=== PATIENT | female | born 1940 | race Caucasian/White ===

== ENCOUNTER 2016-10-26 22:27 | Emergency (ER) | payer MEDICARE, BC ==
--- NOTE | 2016-10-26 22:49 | EDM.PDOC ---
ED HPI GENERAL MEDICAL PROBLEM - General Chief Complaint: Neuro Symptoms/Deficits Stated Complaint: STROKE ALERT Time Seen by Provider: 10/26/16 22:28 Source of Information: Reports: Patient, Family (Son), Old Records, RN Notes Reviewed History Limitations: Reports: Altered Mental Status - History of Present Illness INITIAL COMMENTS - FREE TEXT/NARRATIVE: The patient is brought to the ED by her son. He is concerned that the patient's speech is slurred, and that she is weak. He states that she was unable to get up from the couch on her own, and when she walked, she needed to lean on him for support. The patient's son lives out of town, and only arrived this afternoon. The patient lives alone, but has relatives visiting. The patient's son telephoned the relatives, who informed him that the patient's symptoms likely started yesterday, 10/25/2016. The patient states that she was seen in this ER earlier this afternoon, and saw her PCP, Dr. Tapan talavera, however, our medical records indicates that the patient was last seen in this ED on 03/14/16. The patient's son states that the patient did in fact see Dr. Phelan midafternoon today, and that he diagnosed her with polymyalgia rheumatica, and prescribed her prednisone. The patient's son states that she has taken one dose so far. - Related Data Allergies Allergy/AdvReac Type Severity Reaction Status Date / Time No Known Allergies Allergy Verified 01/31/15 07:44 Home Meds: Home Meds ALPRAZolam [Xanax] 0.5 mg PO ASDIRECTED PRN 07/03/14 [History] Amitriptyline [Elavil] 50 mg PO BEDTIME 07/03/14 [History] Calcium Carbonate/Vitamin D3 [Calcium 600 + Vit D 400] 1 tab PO DAILY 07/03/14 [ History] Fish Oil/[place]-3 Fatty Acids [Fish Oil] 1 cap PO DAILY 07/03/14 [History] Levothyroxine [Synthroid] 88 mcg PO DAILY 07/03/14 [History] Pravastatin Sodium [Pravastatin (Pravachol)] 40 mg PO DAILY 07/03/14 [History] metFORMIN [Glucophage] 500 mg PO BID 07/03/14 [History] Aspirin 81 mg PO DAILY 01/31/15 [History] Labetalol [Normodyne] 200 mg PO BID 01/31/15 [History] cycloSPORINE [Restasis] 1 drop EYEBOTH BID 01/31/15 [History] Losartan Potassium 25 mg PO DAILY 03/14/16 [History] prednisoLONE Acetate [Pred Forte 1% Ophth Susp] 1 drop EYEBOTH DAILY 03/14/16 [ History] Cranberry 2 tab PO DAILY 10/27/16 [History] Methylcellulose [Fiber] 1 tab PO DAILY 10/27/16 [History] Multivitamin [Multivitamins] 1 tab PO DAILY 10/27/16 [History] Omeprazole 20 mg PO DAILY 10/27/16 [History] Propylene Glycol/Peg 400 [Systane 0.3-0.4% Eye Drops] 1 drop EYEBOTH BID [History] Sertraline [Zoloft] 1 tab PO DAILY 10/27/16 [History] Past Medical History HEENT History: Reports: Impaired Vision Cardiovascular History: Reports: High Cholesterol, Hypertension [employer] History: Reports: Musculoskeletal History: Reports: Arthritis, Fibromyalgia Endocrine/Metabolic History: Reports: Diabetes, Type II, Hypothyroidism - Past Surgical History HEENT Surgical History: Reports: Cataract Surgery Social & Family History - Family History Cardiac: Reports: [place] - Tobacco Use Smoking Status *Q: Never Smoker Second Hand Smoke Exposure: No - Caffeine Use Caffeine Use: Reports: Coffee - Alcohol Use Alcohol Use History: Yes Days Per Week of Alcohol Use: 0 Alcohol Use Frequency: Rarely - Recreational Drug Use Recreational Drug Use: No - Living Situation & Occupation Living situation: Reports: , Alone Occupation: Retired ED ROS GENERAL - Review of Systems Review Of Systems: See Below Constitutional: Reports: No Symptoms HEENT: Reports: No Symptoms Respiratory: Reports: No Symptoms Cardiovascular: Reports: No Symptoms Endocrine: Reports: No Symptoms GI/Abdominal: Reports: No Symptoms : Reports: No Symptoms Musculoskeletal: Reports: No Symptoms Skin: Reports: No Symptoms Neurological: Reports: No Symptoms Psychiatric: Reports: No Symptoms Hematologic/Lymphatic: Reports: No Symptoms Immunologic: Reports: No Symptoms ED EXAM, NEURO - Physical Exam Exam: See Below Exam Limited By: No Limitations General Appearance: Alert, WD/WN, No Apparent Distress Eye Exam: Bilateral Eye: Normal Inspection Ears: Normal External Exam, Hearing Grossly Normal Nose: Normal Inspection, No Blood Throat/Mouth: Normal Inspection, Normal Lips, Normal Teeth, Normal Gums, Normal Voice, No Airway Compromise, Other (Dry oral mucosa) Head Exam: Atraumatic, Normocephalic Neck: Normal Inspection, Supple, Non-Tender, Full Range of Motion Respiratory/Chest: No Respiratory Distress, Lungs Clear, Normal Breath Sounds, No Accessory Muscle Use Cardiovascular: Normal Peripheral Pulses, Regular Rate, Rhythm, No Gallop, No JVD, No Murmur, No Rub GI/Abdominal: Normal Bowel Sounds, Soft, Non-Tender, No Organomegaly, No Distention, No Abnormal Bruit, No Mass (Female) Exam: Deferred Rectal (Female) Exam: Deferred Neurological: Alert, Normal Dorsiflexion, CN II-XII Intact, Normal Plantar Flexion, No Motor/Sensory Deficits, Other (Confused) Back Exam: Normal Inspection, Full Range of Motion, NT Extremities: Normal Inspection, Normal Range of Motion, No Pedal Edema, Normal Capillary Refill Psychiatric: Normal Affect Skin Exam: Warm, Dry, Intact, Normal Color, No Rash EKG INTERPRETATION EKG Date: 10/26/16 Time: 22:31 Rhythm: NSR Rate (Beats/Min): 78 [place]: Normal P-Wave: Present QRS: Normal ST-T: Normal QT: Normal Comparison: No Change (03/14/2016) Course - Vital Signs Last Recorded V/S: Last Vital Signs Temp 36.5 C 10/26/16 22:32 Pulse 79 10/26/16 22:32 Resp 30 H 10/26/16 22:32 BP 100/47 L 10/26/16 22:32 Pulse Ox 86 L 10/26/16 22:32 Orthostatic Blood Pressure [ 106/52 Sitting] Orthostatic Blood Pressure [ 102/45 Supine] - Orders/Labs/Meds Orders: Active Orders 24 hr Category Date Time Status Blood Glucose Check, Bedside [RC] ONETIME Care 10/26/16 22:47 Active Blood Glucose Check, Bedside [RC] ONETIME Care 10/26/16 22:51 Active Orthostatic Vital Signs [RC] STAT Care 10/26/16 22:45 Active Chest 1V Frontal [CR] Stat Exams 10/26/16 22:45 Taken Head wo Cont [CT] Stat Exams 10/26/16 22:45 Taken CULTURE BLOOD [BC] Stat Lab 10/26/16 23:15 Received CULTURE BLOOD [BC] Stat Lab 10/26/16 23:25 Received Sodium Chloride 0.9% [Normal Saline] 1,000 ml Med 10/26/16 23:45 Active IV ASDIRECTED Blood Culture x2 Reflex Set [OM.PC] Stat Oth 10/26/16 22:47 Ordered Medication Orders Sodium Chloride (Normal Saline) 1,000 mls @ 100 mls/hr IV ASDIRECTED MOISES Last Admin: 10/26/16 23:55 Dose: 100 mls/hr Labs: Laboratory Tests 10/26/16 10/26/16 10/26/16 Range/Units 22:30 22:30 22:30 WBC 24.94 H (3.98-10.04) K/mm3 RBC 3.39 L (3.98-5.22) M/mm3 Hgb 9.1 L (11.2-15.7) gm/L Hct 28.3 L (34.1-44.9) % MCV 83.5 (79.4-94.8) fl MCH 26.8 (25.6-32.2) pg MCHC 32.2 (32.2-35.5) g/dl RDW Std Deviation 40.9 (36.4-46.3) fL Plt Count 452 H (182-369) K/mm3 MPV 8.9 L (9.4-12.3) fl Neutrophils % (Manual) 87 H (40-60) % Band Neutrophils % 3 (0-10) % Lymphocytes % (Manual) 5 L (20-40) % Atypical Lymphs % 0 % Monocytes % (Manual) 5 (2-10) % Eosinophils % (Manual) 0 L (0.7-5.8) % Basophils % (Manual) 0 L (0.1-1.2) Toxic Granulation 1+ slight Platelet Estimate Increased Plt Morphology Comment Normal Polychromasia 2+ moderate Spherocytes Few RBC Morph Comment Not Reportable PT (8.0-13.0) SECONDS INR APTT (22-36) SECONDS D-Dimer, Quantitative 2.48 H (0.19-0.59) mg/L Puncture Site ABG pH (7.35-7.45) ABG pCO2 (35.0-45.0) mmHg ABG pO2 (80.0-100.0) mmHg ABG HCO3 (22.0-26.0) meq/L [place] Test A-a Gradient mmHg FiO2 (21.00-100.00) % Sodium 131 L (136-145) mEq/L Potassium 4.1 (3.5-5.1) mEq/L Chloride 96 L (98-107) mEq/L Carbon Dioxide 23 (21-32) mEq/L Anion Gap 16.1 H (5-15) BUN 25 H (7-18) mg/dL Creatinine 1.8 H (0.55-1.02) mg/dL Est Cr Clr Drug Dosing 24.11 mL/min Estimated GFR (MDRD) 27 (>60) mL/min BUN/Creatinine Ratio 13.9 L (14-18) Glucose 163 H (83-115) mg/dL Lactic Acid (0.4-2.0) mmol/L Calcium 8.6 (8.5-10.1) mg/dL Total Bilirubin 0.8 (0.2-1.0) mg/dL AST 27 (15-37) U/L ALT 32 (14-59) U/L Alkaline Phosphatase 121 H (46-116) U/L Creatine Kinase (26-192) U/L Troponin I < 0.017 (0.00-0.056) ng/mL B-Natriuretic Peptide (0-100) pg/mL Total Protein 7.3 (6.4-8.2) g/dl Albumin 2.8 L (3.4-5.0) g/dl Globulin 4.5 gm/dL Albumin/Globulin Ratio 0.6 L (1-2) TSH 3rd Generation 2.643 (0.358-3.74) uIU/mL Urine Color (Yellow) Urine Appearance (Clear) Urine pH (5.0-8.0) Ur Specific [place] (1.005-1.030) Urine Protein (Negative) Urine Glucose (UA) (Negative) Urine Ketones (Negative) Urine Occult Blood (Negative) Urine Nitrite (Negative) Urine Bilirubin (Negative) Urine Urobilinogen (0.2-1.0) Ur Leukocyte Esterase (Negative) Urine RBC (0-5) /hpf Urine WBC (0-5) /hpf Ur Epithelial Cells (0-5) /hpf Urine Bacteria (FEW) /hpf Hyaline Casts (0-5) /lpf Urine Mucus (FEW) /hpf 10/26/16 10/26/16 10/26/16 Range/Units 22:30 22:30 22:30 WBC (3.98-10.04) K/mm3 RBC (3.98-5.22) M/mm3 Hgb (11.2-15.7) gm/L Hct (34.1-44.9) % MCV (79.4-94.8) fl MCH (25.6-32.2) pg MCHC (32.2-35.5) g/dl RDW Std Deviation (36.4-46.3) fL Plt Count (182-369) K/mm3 MPV (9.4-12.3) fl Neutrophils % (Manual) (40-60) % Band Neutrophils % (0-10) % Lymphocytes % (Manual) (20-40) % Atypical Lymphs % % Monocytes % (Manual) (2-10) % Eosinophils % (Manual) (0.7-5.8) % Basophils % (Manual) (0.1-1.2) Toxic Granulation Platelet Estimate Plt Morphology Comment Polychromasia Spherocytes RBC Morph Comment PT 11.6 (8.0-13.0) SECONDS INR 1.06 APTT 35 (22-36) SECONDS D-Dimer, Quantitative (0.19-0.59) mg/L Puncture Site ABG pH (7.35-7.45) ABG pCO2 (35.0-45.0) mmHg ABG pO2 (80.0-100.0) mmHg ABG HCO3 (22.0-26.0) meq/L [place] Test A-a Gradient mmHg FiO2 (21.00-100.00) % Sodium (136-145) mEq/L Potassium (3.5-5.1) mEq/L Chloride (98-107) mEq/L Carbon Dioxide (21-32) mEq/L Anion Gap (5-15) BUN (7-18) mg/dL Creatinine (0.55-1.02) mg/dL Est Cr Clr Drug Dosing mL/min Estimated GFR (MDRD) (>60) mL/min BUN/Creatinine Ratio (14-18) Glucose (83-115) mg/dL Lactic Acid (0.4-2.0) mmol/L Calcium (8.5-10.1) mg/dL Total Bilirubin (0.2-1.0) mg/dL AST (15-37) U/L ALT (14-59) U/L Alkaline Phosphatase (46-116) U/L Creatine Kinase 341 H (26-192) U/L Troponin I (0.00-0.056) ng/mL B-Natriuretic Peptide 602 H (0-100) pg/mL Total Protein (6.4-8.2) g/dl Albumin (3.4-5.0) g/dl Globulin gm/dL Albumin/Globulin Ratio (1-2) TSH 3rd Generation (0.358-3.74) uIU/mL Urine Color (Yellow) Urine Appearance (Clear) Urine pH (5.0-8.0) Ur Specific [place] (1.005-1.030) Urine Protein (Negative) Urine Glucose (UA) (Negative) Urine Ketones (Negative) Urine Occult Blood (Negative) Urine Nitrite (Negative) Urine Bilirubin (Negative) Urine Urobilinogen (0.2-1.0) Ur Leukocyte Esterase (Negative) Urine RBC (0-5) /hpf Urine WBC (0-5) /hpf Ur Epithelial Cells (0-5) /hpf Urine Bacteria (FEW) /hpf Hyaline Casts (0-5) /lpf Urine Mucus (FEW) /hpf 10/26/16 10/26/16 10/26/16 Range/Units 23:00 23:15 23:45 WBC (3.98-10.04) K/mm3 RBC (3.98-5.22) M/mm3 Hgb (11.2-15.7) gm/L Hct (34.1-44.9) % MCV (79.4-94.8) fl MCH (25.6-32.2) pg MCHC (32.2-35.5) g/dl RDW Std Deviation (36.4-46.3) fL Plt Count (182-369) K/mm3 MPV (9.4-12.3) fl Neutrophils % (Manual) (40-60) % Band Neutrophils % (0-10) % Lymphocytes % (Manual) (20-40) % Atypical Lymphs % % Monocytes % (Manual) (2-10) % Eosinophils % (Manual) (0.7-5.8) % Basophils % (Manual) (0.1-1.2) Toxic Granulation Platelet Estimate Plt Morphology Comment Polychromasia Spherocytes RBC Morph Comment PT (8.0-13.0) SECONDS INR APTT (22-36) SECONDS D-Dimer, Quantitative (0.19-0.59) mg/L Puncture Site Lt radial ABG pH 7.48 H (7.35-7.45) ABG pCO2 31.1 L (35.0-45.0) mmHg ABG pO2 49.0 L (80.0-100.0) mmHg ABG HCO3 22.8 (22.0-26.0) meq/L [place] Test Positive A-a Gradient 47 mmHg FiO2 21.00 (21.00-100.00) % Sodium (136-145) mEq/L Potassium (3.5-5.1) mEq/L Chloride (98-107) mEq/L Carbon Dioxide (21-32) mEq/L Anion Gap (5-15) BUN (7-18) mg/dL Creatinine (0.55-1.02) mg/dL Est Cr Clr Drug Dosing mL/min Estimated GFR (MDRD) (>60) mL/min BUN/Creatinine Ratio (14-18) Glucose (83-115) mg/dL Lactic Acid 1.2 (0.4-2.0) mmol/L Calcium (8.5-10.1) mg/dL Total Bilirubin (0.2-1.0) mg/dL AST (15-37) U/L ALT (14-59) U/L Alkaline Phosphatase (46-116) U/L Creatine Kinase (26-192) U/L Troponin I (0.00-0.056) ng/mL B-Natriuretic Peptide (0-100) pg/mL Total Protein (6.4-8.2) g/dl Albumin (3.4-5.0) g/dl Globulin gm/dL Albumin/Globulin Ratio (1-2) TSH 3rd Generation (0.358-3.74) uIU/mL Urine Color Yellow (Yellow) Urine Appearance Clear (Clear) Urine pH 5.5 (5.0-8.0) Ur Specific [place] 1.020 (1.005-1.030) Urine Protein Negative (Negative) Urine Glucose (UA) Negative (Negative) Urine Ketones Negative (Negative) Urine Occult Blood Negative (Negative) Urine Nitrite Negative (Negative) Urine Bilirubin 1+ H (Negative) Urine Urobilinogen 0.2 (0.2-1.0) Ur Leukocyte Esterase Negative (Negative) Urine RBC 0-5 (0-5) /hpf Urine WBC 0-5 (0-5) /hpf Ur Epithelial Cells 0-5 (0-5) /hpf Urine Bacteria Moderate H (FEW) /hpf Hyaline Casts 5-10 H (0-5) /lpf Urine Mucus Few (FEW) /hpf Meds: Medications Generic Name Dose Route Start Last Admin Trade Name Freq PRN Reason Stop Dose Admin Sodium Chloride 1,000 mls @ 100 mls/hr 10/26/16 23:45 10/26/16 23:55 Normal Saline IV 100 mls/hr ASDIRECTED MOISES Administration Discontinued Medications Generic Name Dose Route Start Last Admin Trade Name Freq PRN Reason Stop Dose Admin Enoxaparin Sodium 70 mg 10/26/16 23:45 10/26/16 23:56 Lovenox SUBCUT 10/26/16 23:46 70 mg ONETIME STA Administration - Re-Assessments/Exams Free Text/Narrative Re-Assessment/Exam: 10/26/16 23:11 CT of the head without contrast is read by [facility] as "Small low- attenuation area in the inferior left gopi (image 8), may represent acute/ subacute infarct in a proper clinical setting, further evaluation with MRI examination is recommended." As the patient's last known normal appears to be yesterday, thrombolytics are contraindicated. 10/26/16 23:14 The patient's ABG represents an [id number] respiratory alkalosis. The patient's D-dimer is significantly elevated at 2.48. No prior D-dimer for comparison. Her coags are normal. Her chemistry panel has not yet returned. 10/26/16 23:49 The patient's WBC count is elevated at 24.94 with 3% bandemia. This may be the result of the prednisone that the patient was prescribed earlier today. The patient's BUN/Cr are significantly elevated at 25/1.8, new from 03/14/2016, at which time they were normal. As a CT angiogram of the chest would be relatively contraindicated, I have ordered Lovenox 70 mg SQ. The patient's BNP is modestly elevated at 602. No prior BNP for comparison. Both the patient's elevated D-dimer and elevated BNP may be the result of the patient's renal insufficiency. Portable chest radiograph reviewed. Cardiac silhouette is at the upper limits of normal, possibly enlarged. There is moderate pulmonary vascular congestion, not seen on prior portable chest radiograph dated 03/14/2016. Small left-sided pleural effusion cannot be excluded. No focal infiltrate. No pneumothorax. Scoliosis noted. Formal read per the Radiologist pending. 10/27/16 00:37 Orthostatic blood pressures were only checked supine and sitting, not standing, however, she remained hemodynamically stable. 10/27/16 01:[address] Chang, Neurologist at [facility] at 01:33. He does not see an indication to transfer the patient. He agrees that the patient should have a MRI of her brain, however, he does not feel that the patient's clinical findings are consistent with a brainstem infarct, and agrees that CT scans are a poor modality to identify pontine infarcts. Additionally, he notes that the patient requires medical workup of her renal insufficiency and other lab abnormalities, which, as a Neurologist, he would have nothing to do with. He recommends we transfer to [place]. 10/27/16 01:46 The patient and her son would prefer that we transfer the patient to [facility]. 10/27/16 02:[address] Freeman, Neurologist at [facility] at 01:58. He recommends the patient be admitted to the Hospitalist for workup. Case then discussed with Dr. Walter, Hospitalist at [facility] at 02: 02. He accepts the patient for transfer. He would like us to add a CPK to the patient's previously drawn blood. 10/27/16 03:07 The patient CPK is modestly elevated at 341, with an upper limit of normal of 192. Departure - Departure Time of Disposition: 02:22 Disposition: DC/Tfer to Acute Hospital 02 Condition: Fair Clinical Impression: Abnormal CT of brain, Confusion, Acute renal insufficiency, Elevated WBC count , Elevated d-dimer, Elevated brain natriuretic peptide (BNP) level - Discharge Information - My Orders Last 24 Hours: My Active Orders 10/26/16 22:45 Orthostatic Vital Signs [RC] STAT Chest 1V Frontal [CR] Stat Head wo Cont [CT] Stat 10/26/16 22:47 Blood Glucose Check, Bedside [RC] ONETIME Blood Culture x2 Reflex Set [OM.PC] Stat 10/26/16 22:51 Blood Glucose Check, Bedside [RC] ONETIME 10/26/16 23:15 CULTURE BLOOD [BC] Stat 10/26/16 23:25 CULTURE BLOOD [BC] Stat 10/26/16 23:45 Sodium Chloride 0.9% [Normal Saline] 1,000 ml IV ASDIRECTED - Assessment/Plan Last 24 Hours: My Active Orders 10/26/16 22:45 Orthostatic Vital Signs [RC] STAT Chest 1V Frontal [CR] Stat Head wo Cont [CT] Stat 10/26/16 22:47 Blood Glucose Check, Bedside [RC] ONETIME Blood Culture x2 Reflex Set [OM.PC] Stat 10/26/16 22:51 Blood Glucose Check, Bedside [RC] ONETIME 10/26/16 23:15 CULTURE BLOOD [BC] Stat 10/26/16 23:25 CULTURE BLOOD [BC] Stat 10/26/16 23:45 Sodium Chloride 0.9% [Normal Saline] 1,000 ml IV ASDIRECTED
[2016-10-26] MEDS ORDERED: Enoxaparin 80 MG/0.8 ML Syringe SUBCUT STA (23:45)
[2016-10-26] MEDS ORDERED: Sodium Chloride 0.9% 1,000 ML IV SCH (23:45)
[2016-10-27 03:13] VITALS: BP 104/52
--- NOTE | 2016-10-27 10:26 | CR ---
Chest: Portable view of the chest was obtained. Comparison: Previous chest x-ray of 03/14/16. Heart size and mediastinum are normal. Central lung markings are slightly increased believed to be accentuated by portable technique. Lungs otherwise are clear. Bony structures are grossly intact. Impression: 1. Nothing acute is appreciated on portable chest x-ray. Diagnostic code #2
--- NOTE | 2016-10-27 10:26 | CT ---
Head CT Technique: Multiple axial sections through the brain were obtained. Intravenous contrast was not utilized. Comparison: Previous head CT and MRI brain dated 05/24/10. Previous MRI brain of 01/26/15 is also available. Findings: Ventricles along with basal cisterns and sulci over the convexities are within normal limits for the patient's age. Vague low density finding is seen within the gopi. Uncertain if this represents acute or old infarct versus beam hardening artifact from the skull base. Minimal diminished density is noted within the periventricular white matter compatible with small vessel ischemic demyelination change. No evidence of intracranial hemorrhage. Incidental basal ganglia calcification is seen. Atherosclerotic change is seen within the carotid siphon. No acute calvarial abnormality is seen. Visualized paranasal sinuses are clear. Minimal soft tissue density is seen within the right mastoid sinus which is likely incidental. Impression: 1. Questionable finding within the gopi as described above. 2. Other findings which are felt to be incidental as described above. 3. No intracranial hemorrhage is seen. Diagnostic code #3 I agree with preliminary report issued by [facility] ([facility] report finalized on 10/27/16, 12:08 AM Central Time
== END 2016-10-27 03:05 ==
LOC: JD.ED 22:27
DX: R41.0 Disorientation, unspecified (principal); R93.0 Abnormal findings on diagnostic imaging of skull and head, not elsewhere classified; N28.9 Disorder of kidney and ureter, unspecified; D72.829 Elevated white blood cell count, unspecified; R79.1 Abnormal coagulation profile; R79.89 Other specified abnormal findings of blood chemistry; I10 Essential (primary) hypertension; E78.00 Pure hypercholesterolemia, unspecified; M19.90 Unspecified osteoarthritis, unspecified site; E11.9 Type 2 diabetes mellitus without complications; E03.9 Hypothyroidism, unspecified; Z98.49 Cataract extraction status, unspecified eye; Z79.82 Long term (current) use of aspirin; Z79.899 Other long term (current) drug therapy; Z79.84 Long term (current) use of oral hypoglycemic drugs
CPT/HCPCS: 36415; 36600; 70450; 71010; 80053; 81001; 82550; 82803; 82962; 83605; 83880; 84443; 84484; 85025; 85379; 85610; 85730; 87040; 87077; 87186; 93005; 96360; 96361; 96372; 99285; J1650; J7040; P9612

== ENCOUNTER 2016-11-15 19:48 | Emergency (ER) | payer MEDICARE, BC ==
--- NOTE | 2016-11-15 20:55 | EDM.PDOC ---
ED HPI GENERAL MEDICAL PROBLEM - General Chief Complaint: Fever Stated Complaint: FEVER Time Seen by Provider: 11/15/16 20:02 Source of Information: Reports: Patient, Family, Old Records, RN Notes Reviewed History Limitations: Reports: No Limitations - History of Present Illness INITIAL COMMENTS - FREE TEXT/NARRATIVE: The patient was seen by me in this ED 10/26/2016 for slurred speech and generalized weakness. At that time, she was mildly hypotensive with a BP of 100/ 47, however, she was not tachycardic or orthostatic. She was afebrile. Her SpO2 was depressed at 86%. A CT scan of brain without contrast was read as a small low-attenuation area in the inferior left gopi which may have represented an acute/subacute infarct. The patient's WBC count was elevated at 24.94 with 3% bandemia, however, the patient had been started on prednisone earlier that day. The remainder of her CBC was normal. Her CMP was remarkable for hyponatremia of 131, and her BUN/Cr were elevated at 25/1.8. Her bicarbonate was normal, her lactic acid was normal at 1.2, and an ABG demonstrated an acute on chronic respiratory alkalosis. Her D-dimer was elevated at 2.48. Her troponin was undetectable, although her CPK was slightly elevated at 341. Her coags were normal. Her BNP was modestly elevated at 602, felt due to her acute renal failure, as her chest radiograph did not show evidence of CHF. Her urinalysis was unremarkable. She was transferred to [facility] for further evaluation for a stroke. The patient and her family tell me that the patient did not wind up having a stroke, rather, blood cultures grew staph aureus. They state that she underwent an echocardiogram which was negative for valvular vegetations, however, there was no mention of colonoscopy - her last colonoscopy was about 10 years ago. The patient now presents with a fever since this afternoon. Because the cause of the patient's bacteremia was not found, she was instructed to go to the ER if she developed a fever. She denies recent cough or shortness of breath, abdominal pain, sore throat, or chest pain. She states that she had some burning on urination earlier today, but that it has resolved. She also complains of bilateral leg pain which has been going on for months, but has been worse over the past approximately 3 weeks, thought due to her polymyalgia rheumatica. Her pain is no worse this afternoon than it has been over the past few weeks. She is currently on prednisone 15 mg daily. Treatments ENTRY LEVEL ADMINISTRATIVE ASSISTANT: Reports: Other (see below) Other Treatments ENTRY LEVEL ADMINISTRATIVE ASSISTANT: ibuprofen Leg Pain Score (Numeric/FACES): 10 - Related Data Allergies Allergy/AdvReac Type Severity Reaction Status Date / Time No Known Allergies Allergy Verified 11/15/16 20:01 Home Meds: Home Meds ALPRAZolam [Xanax] 0.5 mg PO ASDIRECTED PRN 07/03/14 [History] Amitriptyline [Elavil] 50 mg PO BEDTIME 07/03/14 [History] Calcium Carbonate/Vitamin D3 [Calcium 600 + Vit D 400] 1 tab PO DAILY 07/03/14 [ History] Fish Oil/[place]-3 Fatty Acids [Fish Oil] 1 cap PO DAILY 07/03/14 [History] Levothyroxine [Synthroid] 88 mcg PO DAILY 07/03/14 [History] Pravastatin Sodium [Pravastatin (Pravachol)] 40 mg PO DAILY 07/03/14 [History] metFORMIN [Glucophage] 500 mg PO BID 07/03/14 [History] Aspirin 81 mg PO DAILY 01/31/15 [History] Labetalol [Normodyne] 200 mg PO BID 01/31/15 [History] cycloSPORINE [Restasis] 1 drop EYEBOTH BID 01/31/15 [History] Losartan Potassium 25 mg PO DAILY 03/14/16 [History] prednisoLONE Acetate [Pred Forte 1% Ophth Susp] 1 drop EYEBOTH DAILY 03/14/16 [ History] Cranberry 2 tab PO DAILY 10/27/16 [History] Methylcellulose [Fiber] 1 tab PO DAILY 10/27/16 [History] Multivitamin [Multivitamins] 1 tab PO DAILY 10/27/16 [History] Omeprazole 20 mg PO DAILY 10/27/16 [History] Propylene Glycol/Peg 400 [Systane 0.3-0.4% Eye Drops] 1 drop EYEBOTH BID [History] Sertraline [Zoloft] 1 tab PO DAILY 10/27/16 [History] Past Medical History HEENT History: Reports: Impaired Vision Cardiovascular History: Reports: High Cholesterol, Hypertension [employer] History: Reports: Musculoskeletal History: Reports: Other (See Below) (Polymyalgia rheumatica) Endocrine/Metabolic History: Reports: Diabetes, Type II, Hypothyroidism - Past Surgical History HEENT Surgical History: Reports: Cataract Surgery Social & Family History - Family History Cardiac: Reports: OR - Tobacco Use Smoking Status *Q: Never Smoker Second Hand Smoke Exposure: No - Caffeine Use Caffeine Use: Reports: Coffee - Alcohol Use Alcohol Use History: Yes Days Per Week of Alcohol Use: 0 Alcohol Use Frequency: Rarely - Recreational Drug Use Recreational Drug Use: No - Living Situation & Occupation Living situation: Reports: , Alone Occupation: Retired ED ROS GENERAL - Review of Systems Review Of Systems: See Below Constitutional: Reports: No Symptoms HEENT: Reports: No Symptoms Respiratory: Reports: No Symptoms Cardiovascular: Reports: No Symptoms Endocrine: Reports: No Symptoms GI/Abdominal: Reports: No Symptoms : Reports: No Symptoms Musculoskeletal: Reports: Leg Pain (Chronic bilateral lower extremity pain) Skin: Reports: No Symptoms Neurological: Reports: No Symptoms Psychiatric: Reports: No Symptoms Hematologic/Lymphatic: Reports: No Symptoms Immunologic: Reports: No Symptoms ED EXAM, GENERAL - Physical Exam Exam: See Below Exam Limited By: No Limitations General Appearance: Alert, WD/WN, No Apparent Distress Eye Exam: Bilateral Eye: Normal Inspection Ears: Normal External Exam, Hearing Grossly Normal Nose: Normal Inspection, No Blood Throat/Mouth: Normal Inspection, Normal Lips, Normal Voice, No Airway Compromise Head: Atraumatic, Normocephalic Neck: Normal Inspection, Full Range of Motion Respiratory/Chest: No Respiratory Distress, Lungs Clear, Normal Breath Sounds, No Accessory Muscle Use Cardiovascular: Normal Peripheral Pulses, Regular Rate, Rhythm, No Gallop, No JVD, No Murmur, No Rub Peripheral Pulses: 4+: Radial (L), Radial (R) GI/Abdominal: Normal Bowel Sounds, Soft, No Organomegaly, No Distention, No Abnormal Bruit, No Mass, Tender (Slight, suprapubic only. Nontender elsewhere.) (Female) Exam: Deferred Rectal (Female) Exam: Deferred Back Exam: Normal Inspection, Full Range of Motion. No: CVA Tenderness (L), CVA Tenderness (R) Extremities: Normal Inspection, Normal Range of Motion, No Pedal Edema, Normal Capillary Refill Neurological: Alert, Oriented, Normal Cognition, No Motor/Sensory Deficits Psychiatric: Normal Affect Skin Exam: Warm, Dry, Intact, Normal Color, No Rash Lymphatic: No Adenopathy EKG INTERPRETATION EKG Date: 11/15/16 Time: 20:38 Rhythm: NSR Rate (Beats/Min): 86 [place]: Normal P-Wave: Present QRS: Normal ST-T: Normal QT: Normal Comparison: No Change (10/26/2016) Course - Vital Signs Last Recorded V/S: Last Vital Signs Temp 38.3 C H 11/15/16 19:55 Pulse 92 11/15/16 19:55 Resp 16 11/15/16 19:55 BP 180/72 H 11/15/16 19:55 Pulse Ox 100 11/15/16 19:55 - Orders/Labs/Meds Orders: Active Orders 24 hr Category Date Time Status EKG Documentation Completion [RC] STAT Care 11/15/16 20:21 Active Chest 2V [CR] Stat Exams 11/15/16 20:20 Taken CULTURE BLOOD [BC] Stat Lab 11/15/16 20:48 Received CULTURE BLOOD [BC] Stat Lab 11/15/16 21:02 Received CULTURE URINE [RM] Stat Lab 11/15/16 21:52 Uncollected Sulfamethoxazole/Trimethoprim [Septra DS] Med 11/15/16 21:53 Stat 1 tab PO ONETIME STA Blood Culture x2 Reflex Set [OM.PC] Stat Oth 11/15/16 20:22 Ordered Labs: Laboratory Tests 11/15/16 11/15/16 11/15/16 Range/Units 20:10 20:10 20:48 WBC 20.61 H (3.98-10.04) K/mm3 RBC 3.86 L (3.98-5.22) M/mm3 Hgb 10.0 L (11.2-15.7) gm/L Hct 31.8 L (34.1-44.9) % MCV 82.4 (79.4-94.8) fl MCH 25.9 (25.6-32.2) pg MCHC 31.4 L (32.2-35.5) g/dl RDW Std Deviation 43.6 (36.4-46.3) fL Plt Count 654 H (182-369) K/mm3 MPV 9.0 L (9.4-12.3) fl Neutrophils % (Manual) 86 H (40-60) % Band Neutrophils % 1 (0-10) % Lymphocytes % (Manual) 10 L (20-40) % Atypical Lymphs % 0 % Monocytes % (Manual) 3 (2-10) % Eosinophils % (Manual) 0 L (0.7-5.8) % Basophils % (Manual) 0 L (0.1-1.2) Toxic Granulation 2+ moderate Platelet Estimate Increased Plt Morphology Comment Normal Hypochromasia 1+ slight Anisocytosis 1+ slight RBC Morph Comment Not Reportable Sodium 135 L (136-145) mEq/L Potassium 4.3 (3.5-5.1) mEq/L Chloride 100 (98-107) mEq/L Carbon Dioxide 26 (21-32) mEq/L Anion Gap 13.3 (5-15) BUN 22 H (7-18) mg/dL Creatinine 1.1 H (0.55-1.02) mg/dL Est Cr Clr Drug Dosing 37.93 mL/min Estimated GFR (MDRD) 48 (>60) mL/min BUN/Creatinine Ratio 20.0 H (14-18) Glucose 180 H (83-115) mg/dL Lactic Acid 1.8 (0.4-2.0) mmol/L Calcium 9.9 (8.5-10.1) mg/dL Total Bilirubin 0.4 (0.2-1.0) mg/dL AST 11 L (15-37) U/L ALT 16 (14-59) U/L Alkaline Phosphatase 148 H (46-116) U/L Troponin I < 0.017 (0.00-0.056) ng/mL Total Protein 8.1 (6.4-8.2) g/dl Albumin 3.2 L (3.4-5.0) g/dl Globulin 4.9 gm/dL Albumin/Globulin Ratio 0.7 L (1-2) Urine Color (Yellow) Urine Appearance (Clear) Urine pH (5.0-8.0) Ur Specific [place] (1.005-1.030) Urine Protein (Negative) Urine Glucose (UA) (Negative) Urine Ketones (Negative) Urine Occult Blood (Negative) Urine Nitrite (Negative) Urine Bilirubin (Negative) Urine Urobilinogen (0.2-1.0) Ur Leukocyte Esterase (Negative) Urine RBC (0-5) /hpf Urine WBC (0-5) /hpf Ur Epithelial Cells (0-5) /hpf Urine Bacteria (FEW) /hpf Urine Mucus (FEW) /hpf 11/15/16 Range/Units 21:15 WBC (3.98-10.04) K/mm3 RBC (3.98-5.22) M/mm3 Hgb (11.2-15.7) gm/L Hct (34.1-44.9) % MCV (79.4-94.8) fl MCH (25.6-32.2) pg MCHC (32.2-35.5) g/dl RDW Std Deviation (36.4-46.3) fL Plt Count (182-369) K/mm3 MPV (9.4-12.3) fl Neutrophils % (Manual) (40-60) % Band Neutrophils % (0-10) % Lymphocytes % (Manual) (20-40) % Atypical Lymphs % % Monocytes % (Manual) (2-10) % Eosinophils % (Manual) (0.7-5.8) % Basophils % (Manual) (0.1-1.2) Toxic Granulation Platelet Estimate Plt Morphology Comment Hypochromasia Anisocytosis RBC Morph Comment Sodium (136-145) mEq/L Potassium (3.5-5.1) mEq/L Chloride (98-107) mEq/L Carbon Dioxide (21-32) mEq/L Anion Gap (5-15) BUN (7-18) mg/dL Creatinine (0.55-1.02) mg/dL Est Cr Clr Drug Dosing mL/min Estimated GFR (MDRD) (>60) mL/min BUN/Creatinine Ratio (14-18) Glucose (83-115) mg/dL Lactic Acid (0.4-2.0) mmol/L Calcium (8.5-10.1) mg/dL Total Bilirubin (0.2-1.0) mg/dL AST (15-37) U/L ALT (14-59) U/L Alkaline Phosphatase (46-116) U/L Troponin I (0.00-0.056) ng/mL Total Protein (6.4-8.2) g/dl Albumin (3.4-5.0) g/dl Globulin gm/dL Albumin/Globulin Ratio (1-2) Urine Color Light yellow (Yellow) Urine Appearance Clear (Clear) Urine pH 6.0 (5.0-8.0) Ur Specific [place] 1.015 (1.005-1.030) Urine Protein Negative (Negative) Urine Glucose (UA) Negative (Negative) Urine Ketones Negative (Negative) Urine Occult Blood Trace-lysed H (Negative) Urine Nitrite Negative (Negative) Urine Bilirubin Negative (Negative) Urine Urobilinogen 0.2 (0.2-1.0) Ur Leukocyte Esterase 1+ H (Negative) Urine RBC 0-5 (0-5) /hpf Urine WBC 20-30 H (0-5) /hpf Ur Epithelial Cells 0-5 (0-5) /hpf Urine Bacteria Many H (FEW) /hpf Urine Mucus Not seen (FEW) /hpf - Re-Assessments/Exams Free Text/Narrative Re-Assessment/Exam: 11/15/16 21:07 Two-view chest radiograph appears to be grossly normal. Cardiac silhouette is within normal limits. No pulmonary vascular congestion. No pleural effusions. No focal infiltrate. No pneumothorax. Formal read per the Radiologist pending. 11/15/16 21:54 The patient's WBC count is elevated at 20.61, but with only 1% bandemia, and the patient is on prednisone. She has thrombocytosis of 654,000, trending upward from her last visit to the ED. Her previous acute renal failure has resolved. Her blood glucose is modestly elevated 180. Her urinalysis is consistent with a UTI. I have ordered a urine culture and will start the patient on oral Bactrim. I believe the patient may safely be discharged home with a prescription for Bactrim - the patient prefers [facility]. Departure - Departure Time of Disposition: 22:04 Disposition: Home, Self-Care 01 Condition: Good Clinical Impression: UTI (urinary tract infection), Thrombocytosis - Discharge Information Referrals: Phu Leavitt MD [Primary Care Provider] - Forms: ED Department Discharge Additional Instructions: You were seen in the emergency room for a fever and some burning on urination. Workup in the ER included blood work, a urinalysis, a chest x-ray, and an ECG. A sample of your urine was also sent for culture. Your workup showed that you have a urinary tract infection. You have been started on the antibiotic Bactrim. Take one tablet every 12 hours , as prescribed. Finish the entire prescription unless told otherwise by your doctor. Stay adequately hydrated. Your workup also showed that your platelets are elevated at 654,000. The cause of this is not clear and may require further investigation. Contact the office of Dr. Richardson this coming Saturday11/19/2016 to check on your urine culture results, to make sure that you are on the correct antibiotic. Follow-up with Dr. Richardson at your previously scheduled appointment this coming 11/20/2016. If any other problems, please do not hesitate to return to the ER. - My Orders Last 24 Hours: My Active Orders 11/15/16 20:20 Chest 2V [CR] Stat 11/15/16 20:21 EKG Documentation Completion [RC] STAT 11/15/16 20:22 Blood Culture x2 Reflex Set [OM.PC] Stat 11/15/16 20:48 CULTURE BLOOD [BC] Stat 11/15/16 21:02 CULTURE BLOOD [BC] Stat 11/15/16 21:52 CULTURE URINE [RM] Stat 11/15/16 21:53 Sulfamethoxazole/Trimethoprim [Septra DS] 1 tab PO ONETIME STA - Assessment/Plan Last 24 Hours: My Active Orders 11/15/16 20:20 Chest 2V [CR] Stat 11/15/16 20:21 EKG Documentation Completion [RC] STAT 11/15/16 20:22 Blood Culture x2 Reflex Set [OM.PC] Stat 11/15/16 20:48 CULTURE BLOOD [BC] Stat 11/15/16 21:02 CULTURE BLOOD [BC] Stat 11/15/16 21:52 CULTURE URINE [RM] Stat 11/15/16 21:53 Sulfamethoxazole/Trimethoprim [Septra DS] 1 tab PO ONETIME STA
[2016-11-15] MEDS ORDERED: Sulfamethoxazole/Trimethoprim 800-160 MG Tab PO STA (21:53)
[2016-11-15 22:31] VITALS: BP 135/61
--- NOTE | 2016-11-16 07:56 | CR ---
Chest: Two views of the chest were obtained. Comparison: Previous chest x-ray of 10/26/16. Heart size and mediastinum are within normal limits. Lungs are clear. Slight scoliosis is present within the spine. Mild degenerative change is scattered within the spine. Impression: 1. Nothing acute is identified on two-view chest x-ray. Diagnostic code #2
== END 2016-11-15 22:20 | disposition home or self-care (01) ==
LOC: JD.ED 19:48
DX: N39.0 Urinary tract infection, site not specified (principal); B95.61 Methicillin susceptible Staphylococcus aureus infection as the cause of diseases classified elsewhere; D47.3 Essential (hemorrhagic) thrombocythemia; I10 Essential (primary) hypertension; E78.00 Pure hypercholesterolemia, unspecified; E11.9 Type 2 diabetes mellitus without complications; Z98.49 Cataract extraction status, unspecified eye; Z79.899 Other long term (current) drug therapy; Z79.84 Long term (current) use of oral hypoglycemic drugs; Z79.82 Long term (current) use of aspirin
CPT/HCPCS: 36415; 71020; 80053; 81001; 83605; 84484; 85025; 87040; 87086; 87088; 87186; 93005; 99284; A9270; P9612

== ENCOUNTER 2016-11-16 11:02 | Inpatient (IN) | payer MEDICARE, BC ==
[2016-11-16] MEDS ORDERED: Sodium Chloride 0.9% 10 ML Syringe FLUSH PRN (11:31)
--- NOTE | 2016-11-16 11:31 | EDM.PDOC ---
ED HPI GENERAL MEDICAL PROBLEM - General Chief Complaint: General Stated Complaint: CAME IN TO BE ADMITTED Time Seen by Provider: 11/16/16 11:04 Source of Information: Reports: Patient, RN Notes Reviewed - History of Present Illness INITIAL COMMENTS - FREE TEXT/NARRATIVE: 76-year-old female returns to ED after lab called this morning stating that 2 blood cultures drawn later last evening are growing out gram-positive cocci. She presented to our ED last evening with fever chills generalized weakness, diagnosed with UTI, sent home on oral Bactrim. Of note she did have an episode of severe illness about 3 weeks ago, transferred to [place] with concern for acute CVA. She was found to be septic, grew out "staph aureus according to family. She is in the hospital for 5 days on IV antibiotics and then discharged on oral antibiotics. He had been doing quite well up until about 2 days ago when she began to feel more weak dizzy and fatigued. She then did start running fever later yesterday afternoon or early evening. At this time she denies voiding symptomatology. She has not had obvious fever this morning. However she did take some ibuprofen sometime ago. She has been having a lot of proximal thigh discomfort for the last 2 or 3 months thought to be due to her polymyalgia rheumatica. She is on prednisone for that. She has not been coughing. She has not had any unusual skin rash and denies any chronic skin lesions or ulcerations. She also does not have any artificial joints. She states that she did have echocardiogram done in [place] which did not show any unusual lesions. Bilateral Leg Pain Score (Numeric/FACES): 6 - Related Data Allergies Allergy/AdvReac Type Severity Reaction Status Date / Time No Known Allergies Allergy Verified 11/15/16 20:01 Home Meds: Home Meds ALPRAZolam [Xanax] 0.25 mg PO DAILY PRN 07/03/14 [History] Amitriptyline [Elavil] 50 mg PO BEDTIME 07/03/14 [History] Calcium Carbonate/Vitamin D3 [Calcium 600 + Vit D 400] 1 tab PO BID 07/03/14 [ History] Levothyroxine [Synthroid] 88 mcg PO DAILY 07/03/14 [History] metFORMIN [Glucophage] 500 mg PO BID 07/03/14 [History] Aspirin 81 mg PO DAILY 01/31/15 [History] Labetalol [Normodyne] 100 mg PO BID 01/31/15 [History] cycloSPORINE [Restasis] 1 drop EYEBOTH BID 01/31/15 [History] prednisoLONE Acetate [Pred Forte 1% Ophth Susp] 1 drop EYEBOTH DAILY 03/14/16 [ History] Methylcellulose [Fiber] 1 tab PO DAILY 10/27/16 [History] Omeprazole 20 mg PO DAILY 10/27/16 [History] Propylene Glycol/Peg 400 [Systane 0.3-0.4% Eye Drops] 1 drop EYEBOTH BID [History] predniSONE [Prednisone] 5 mg PO BID 11/16/16 [History] predniSONE [Prednisone] 15 mg PO DAILY 11/16/16 [History] Past Medical History HEENT History: Reports: Impaired Vision Cardiovascular History: Reports: High Cholesterol, Hypertension [employer] History: Reports: Musculoskeletal History: Reports: Other (See Below) Neurological History: Reports: TIA Endocrine/Metabolic History: Reports: Diabetes, Type II, Hypothyroidism - Past Surgical History HEENT Surgical History: Reports: Cataract Surgery Social & Family History - Family History Cardiac: Reports: PR - Tobacco Use Smoking Status *Q: Never Smoker Second Hand Smoke Exposure: No - Caffeine Use Caffeine Use: Reports: Coffee - Alcohol Use Days Per Week of Alcohol Use: 0 - Recreational Drug Use Recreational Drug Use: No - Living Situation & Occupation Living situation: Reports: , Alone Occupation: Retired ED ROS GENERAL - Review of Systems Review Of Systems: See Below Constitutional: Reports: Fever, Chills (Last evening last evening), Diaphoresis (Mild) HEENT: Denies: Sinus Problem, Throat Pain, Vision Change Respiratory: Denies: Shortness of Breath, Wheezing, Cough Cardiovascular: Reports: Lightheadedness. Denies: Chest Pain Endocrine: Reports: Fatigue GI/Abdominal: Denies: Abdominal Pain, Diarrhea, Nausea, Vomiting : Reports: No Symptoms Musculoskeletal: Denies: Back Pain Skin: Denies: Rash, Erythema, Lesions Neurological: Reports: Dizziness, Weakness (Mild generalized). Denies: Numbness , Tingling, Trouble Speaking ED EXAM, GENERAL - Physical Exam Exam: See Below General Appearance: Alert, No Apparent Distress Eye Exam: Bilateral Eye: PERRL Throat/Mouth: Normal Inspection, Normal Oropharynx Head: Atraumatic. No: Facial Swelling Neck: Supple, Full Range of Motion, Other. No: Lymphadenopathy (L), Lymphadenopathy (R) Respiratory/Chest: No Respiratory Distress (No JVD), Lungs Clear, Normal Breath Sounds. No: Rales, Rhonchi, Wheezing Cardiovascular: Regular Rate, Rhythm GI/Abdominal: Soft, Non-Tender. No: Guarding Back Exam: No: CVA Tenderness (L), CVA Tenderness (R), Paraspinal Tenderness Extremities: Normal Inspection, Normal Range of Motion. No: Pedal Edema, Leg Pain Neurological: Alert, Oriented, No Motor/Sensory Deficits Skin Exam: Warm, Dry, Normal Color, No Rash Course - Vital Signs Last Recorded V/S: Last Vital Signs Temp 97.0 F 11/16/16 11:08 Pulse 74 11/16/16 11:08 Resp 20 11/16/16 11:08 BP 124/48 L 11/16/16 11:08 Pulse Ox 95 11/16/16 11:08 - Orders/Labs/Meds Orders: Active Orders 24 hr Category Date Time Status Peripheral IV Care [RC] . DIRECTED Care 11/16/16 11:31 Active CULTURE BLOOD [BC] Stat Lab 11/16/16 12:10 Received Sodium Chloride 0.9% [Saline Flush] Med 11/16/16 11:31 Active 10 ml FLUSH ASDIRECTED PRN Peripheral IV Insertion Adult [OM.PC] Stat Oth 11/16/16 11:31 Ordered Medication Orders Sodium Chloride (Saline Flush) 10 ml FLUSH ASDIRECTED PRN PRN Reason: Keep Vein Open Last Admin: 11/16/16 11:34 Dose: 10 ml Labs: Laboratory Tests 11/16/16 11/16/16 11/16/16 Range/Units 11:32 11:32 11:32 WBC 24.42 H (3.98-10.04) K/mm3 RBC 3.56 L (3.98-5.22) M/mm3 Hgb 9.4 L (11.2-15.7) gm/L Hct 29.1 L (34.1-44.9) % MCV 81.7 (79.4-94.8) fl MCH 26.4 (25.6-32.2) pg MCHC 32.3 (32.2-35.5) g/dl RDW Std Deviation 42.3 (36.4-46.3) fL Plt Count 526 H (182-369) K/mm3 MPV 8.9 L (9.4-12.3) fl Neut % (Auto) 85.1 H (34.0-71.1) % Lymph % (Auto) 5.6 L (19.3-51.7) % [place] % (Auto) 8.8 (4.7-12.5) % Eos % (Auto) 0 L (0.7-5.8) Baso % (Auto) 0.1 (0.1-1.2) % Neut # (Auto) 20.79 H (1.56-6.13) K/mm3 Lymph # (Auto) 1.36 (1.18-3.74) K/mm3 [place] # (Auto) 2.14 H (0.24-0.36) K/mm3 Eos # (Auto) 0.01 L (0.04-0.36) K/mm3 Baso # (Auto) 0.03 (0.01-0.08) K/mm3 Manual Slide Review Abnormal smear Sodium 131 L (136-145) mEq/L Potassium 4.0 (3.5-5.1) mEq/L Chloride 97 L (98-107) mEq/L Carbon Dioxide 24 (21-32) mEq/L Anion Gap 14.0 (5-15) BUN 21 H (7-18) mg/dL Creatinine 1.2 H (0.55-1.02) mg/dL Est Cr Clr Drug Dosing TNP Estimated GFR (MDRD) 43 (>60) mL/min BUN/Creatinine Ratio 17.5 (14-18) Glucose 271 H (83-115) mg/dL Lactic Acid (0.4-2.0) mmol/L Calcium 9.7 (8.5-10.1) mg/dL Total Bilirubin 0.7 (0.2-1.0) mg/dL AST 12 L (15-37) U/L ALT 12 L (14-59) U/L Alkaline Phosphatase 127 H (46-116) U/L C-Reactive Protein 22.5 H* (<1.0) mg/dL Total Protein 7.2 (6.4-8.2) g/dl Albumin 2.8 L (3.4-5.0) g/dl Globulin 4.4 gm/dL Albumin/Globulin Ratio 0.6 L (1-2) 11/16/16 Range/Units 12:10 WBC (3.98-10.04) K/mm3 RBC (3.98-5.22) M/mm3 Hgb (11.2-15.7) gm/L Hct (34.1-44.9) % MCV (79.4-94.8) fl MCH (25.6-32.2) pg MCHC (32.2-35.5) g/dl RDW Std Deviation (36.4-46.3) fL Plt Count (182-369) K/mm3 MPV (9.4-12.3) fl Neut % (Auto) (34.0-71.1) % Lymph % (Auto) (19.3-51.7) % [place] % (Auto) (4.7-12.5) % Eos % (Auto) (0.7-5.8) Baso % (Auto) (0.1-1.2) % Neut # (Auto) (1.56-6.13) K/mm3 Lymph # (Auto) (1.18-3.74) K/mm3 [place] # (Auto) (0.24-0.36) K/mm3 Eos # (Auto) (0.04-0.36) K/mm3 Baso # (Auto) (0.01-0.08) K/mm3 Manual Slide Review Sodium (136-145) mEq/L Potassium (3.5-5.1) mEq/L Chloride (98-107) mEq/L Carbon Dioxide (21-32) mEq/L Anion Gap (5-15) BUN (7-18) mg/dL Creatinine (0.55-1.02) mg/dL Est Cr Clr Drug Dosing Estimated GFR (MDRD) (>60) mL/min BUN/Creatinine Ratio (14-18) Glucose (83-115) mg/dL Lactic Acid 1.6 (0.4-2.0) mmol/L Calcium (8.5-10.1) mg/dL Total Bilirubin (0.2-1.0) mg/dL AST (15-37) U/L ALT (14-59) U/L Alkaline Phosphatase (46-116) U/L C-Reactive Protein (<1.0) mg/dL Total Protein (6.4-8.2) g/dl Albumin (3.4-5.0) g/dl Globulin gm/dL Albumin/Globulin Ratio (1-2) Meds: Medications Generic Name Dose Route Start Last Admin Trade Name Malik PRN Reason Stop Dose Admin Sodium Chloride 10 ml 11/16/16 11:31 11/16/16 11:34 Saline Flush FLUSH 10 ml ASDIRECTED PRN Administration Keep Vein Open Discontinued Medications Generic Name Dose Route Start Last Admin Trade Name Malik PRN Reason Stop Dose Admin Levofloxacin/Dextrose 750 mg/ 150 mls @ 100 mls/hr 11/16/16 12:15 11/16/16 12 :22 Premix IV 11/16/16 13:44 100 mls/hr ONETIME ONE Administration Sodium Chloride 500 mls @ 999 mls/hr 11/16/16 13:09 11/16/16 13:26 Normal Saline IV 11/16/16 13:39 999 mls/hr .BOLUS ONE Administration - Re-Assessments/Exams Free Text/Narrative Re-Assessment/Exam: 11/16/16 13:08 As noted lab called this morning shortly before patient arrival stating that her 2 blood cultures from last evening are both growing out positive, growing what looks like gram-positive cocci. We did check with lab no short time ago and her urine culture is growing out gram-negative rods. For it would appear that she has to infections. This will need to be further sorted out. We have given IV Levaquin 750 mg IV. One further blood culture was drawn prior to starting that. Her blood pressure has been fine. Her heart rate is running in the 70s. She's not showing any sign of shock. We have given 500 mL normal saline fluid bolus and will give another 500 mL at this time. Departure - Departure Time of Disposition: 13:06 Disposition: Admitted As Inpatient 64 Condition: Serious Clinical Impression: Pyelonephritis, Sepsis - Discharge Information ED Communication - Discussed Case With (1) Discussed Case With (1): Admitting Provider (Dr. Davis, decision to admit at 1300) - My Orders Last 24 Hours: My Active Orders 11/16/16 11:31 Peripheral IV Care [RC] . DIRECTED Sodium Chloride 0.9% [Saline Flush] 10 ml FLUSH ASDIRECTED PRN Peripheral IV Insertion Adult [OM.PC] Stat 11/16/16 12:10 CULTURE BLOOD [BC] Stat - Assessment/Plan Last 24 Hours: My Active Orders 11/16/16 11:31 Peripheral IV Care [RC] . DIRECTED Sodium Chloride 0.9% [Saline Flush] 10 ml FLUSH ASDIRECTED PRN Peripheral IV Insertion Adult [OM.PC] Stat 11/16/16 12:10 CULTURE BLOOD [BC] Stat
[2016-11-16] MEDS ORDERED: Levofloxacin/Dextrose 5%-Water 750 MG in Premix Bag 1 BAG IV ONE (12:15)
--- NOTE | 2016-11-16 12:43 | CR ---
Chest: Portable view of the chest was obtained. Comparison: Previous chest x-ray of 11/15/16. Heart size and mediastinum are within normal limits for portable technique. Lungs are clear. Bony structures are grossly intact. Impression: 1. Nothing acute is identified on portable chest x-ray. Diagnostic code #1
[2016-11-16] MEDS ORDERED: Sodium Chloride 0.9% 500 ML IV ONE (13:09)
[2016-11-16] MEDS ORDERED: ALPRAZolam 0.5 MG Tab PO PRN (15:55)
--- NOTE | 2016-11-16 16:27 | PCM.HP ---
H&P History of Present Illness - General Date of Service: 11/16/16 Admit Problem/Dx: Admission Diagnosis/Problem Admission Diagnosis/Problem Sepsis Source of Information: Patient, Family, Provider History Limitations: Reports: No Limitations - History of Present Illness Initial Comments - Free Text/Narative: 76 year old female recently admitted with acute encephalopathy, treated at [facility]. The patient was discharged roughly 3 weeks CLINICAL REHAB LIAISON. She was called by the hospital after blood cultures drawn less than 24 hours ago were positive. The blood cultures grew gram positive cocci; the patient was treated with IV antibiotics for MSSA 3 weeks ago in [place]. Last night the patient presented with dizziness associated with fatigue. She also reported fever and chills, she was discharged with a Bactrim DS prescription for a UTI. As a result of the blood cultures last night, she was notified by the hospital to come to the emergency room. Onset of Symptoms: Reports: Sudden Symptom Onset Date: 11/14/16 Duration of Symptoms: Reports: Day(s):, Getting Worse Location: Reports: Generalized Quality: Reports: Same as Previous Episode Severity: Moderate Improves with: Reports: Medication Worsens with: Reports: None Associated Symptoms: Reports: Diaphoresis, Fever/Chills, Malaise, Weakness Bilateral Leg Pain Score (Numeric/FACES): 6 - Related Data Allergies/Adverse Reactions: Allergies Allergy/AdvReac Type Severity Reaction Status Date / Time No Known Allergies Allergy Verified 11/16/16 14:44 Home Medications: Home Meds ALPRAZolam [Xanax] 0.25 mg PO DAILY PRN 07/03/14 [History] Amitriptyline [Elavil] 50 mg PO BEDTIME 07/03/14 [History] Calcium Carbonate/Vitamin D3 [Calcium 600 + Vit D 400] 1 tab PO BID 07/03/14 [ History] Levothyroxine [Synthroid] 88 mcg PO DAILY 07/03/14 [History] metFORMIN [Glucophage] 500 mg PO BID 07/03/14 [History] Aspirin 81 mg PO DAILY 01/31/15 [History] Labetalol [Normodyne] 100 mg PO BID 01/31/15 [History] cycloSPORINE [Restasis] 1 drop EYEBOTH BID 01/31/15 [History] prednisoLONE Acetate [Pred Forte 1% Ophth Susp] 1 drop EYEBOTH DAILY 03/14/16 [ History] Methylcellulose [Fiber] 1 tab PO DAILY 10/27/16 [History] Omeprazole 20 mg PO DAILY 10/27/16 [History] Propylene Glycol/Peg 400 [Systane 0.3-0.4% Eye Drops] 1 drop EYEBOTH BID [History] Losartan [Cozaar] 25 mg PO DAILY 11/16/16 [History] predniSONE [Prednisone] 5 mg PO BID 11/16/16 [History] Past Medical History HEENT History: Reports: Impaired Vision Cardiovascular History: Reports: High Cholesterol, Hypertension 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: Reports: GERD 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: Musculoskeletal History: Reports: Arthritis Neurological History: Reports: TIA Endocrine/Metabolic History: Reports: Diabetes, Type II, Hypothyroidism - Past Surgical History HEENT Surgical History: Reports: Cataract Surgery, Other (See Below) Other HEENT Surgeries/Procedures: cornea transplants Social & Family History - Family History Cardiac: Reports: [place] - Tobacco Use Smoking Status *Q: Never Smoker Second Hand Smoke Exposure: No - Caffeine Use Caffeine Use: Reports: Coffee - Alcohol Use Days Per Week of Alcohol Use: 0 - Recreational Drug Use Recreational Drug Use: No - Living Situation & Occupation Living situation: Reports: , Alone Occupation: Retired H&P Review of Systems - Review of Systems: Review Of Systems: See Below General: Reports: Fever, Chills, Malaise, Weakness, Fatigue HEENT: Reports: No Symptoms Pulmonary: Reports: No Symptoms Cardiovascular: Reports: No Symptoms Gastrointestinal: Reports: No Symptoms Genitourinary: Reports: No Symptoms Musculoskeletal: Reports: No Symptoms Skin: Reports: No Symptoms Psychiatric: Reports: No Symptoms Neurological: Reports: No Symptoms Hematologic/Lymphatic: Reports: No Symptoms Immunologic: Reports: No Symptoms Exam - Exam Exam: See Below - Vital Signs Vital Signs: Last Vital Signs Temp 36.2 C 11/16/16 14:42 Pulse 69 11/16/16 14:42 Resp 15 11/16/16 14:42 BP 111/75 11/16/16 14:42 Pulse Ox 94 L 11/16/16 14:42 Weight: 68.492 kg - Exam General: Alert, Oriented, Cooperative, Mild Distress HEENT: EOMI, Nares Patent, Normal Nasal Septum, Posterior Pharynx Clear, Pupils Equal, Pupils Reactive Neck: Supple, Trachea Midline Lungs: Clear to Auscultation, Normal Respiratory Effort Cardiovascular: Regular Rate, Regular Rhythm GI/Abdominal Exam: Normal Bowel Sounds, Soft, Non-Tender, No Organomegaly, No Distention (Female) Exam: Deferred Rectal (Female) Exam: Deferred Back Exam: Normal Inspection Extremities: Normal Inspection, No Pedal Edema Skin: Warm Neurological: Cranial Nerves Intact Neuro Extensive - Mental Status: Alert, Oriented x3, Normal Mood/Affect, Normal Cognition, Memory Intact Neuro Extensive - Motor, Sensory, Reflexes: CN II-XII Intact Psychiatric: Alert, Normal Affect, Normal Mood - Patient Data Result Diagrams: 11/16/16 11:32 11/16/16 11:32 *Q Meaningful Use (ADM) - VTE *Q VTE Criteria *Q: - Stroke *Q Stroke Criteria *Q: - AMI *Q AMI Criteria *Q: - Problem List (1) Pyelonephritis SNOMED Code(s): 24284409 ICD Code: N12 - TUBULO-INTERSTITIAL NEPHRITIS, NOT SPCF ACUTE OR CHRONIC Status: Acute Current Visit: Yes (2) Acute renal insufficiency SNOMED Code(s): 538624363 ICD Code: N28.9 - DISORDER OF KIDNEY AND URETER, UNSPECIFIED Status: Acute Current Visit: No (3) Elevated WBC count SNOMED Code(s): 891551380, 291692504 ICD Code: D72.829 - ELEVATED WHITE BLOOD CELL COUNT, UNSPECIFIED Status: Acute Current Visit: No (4) Bacteremia SNOMED Code(s): 4092431 ICD Code: R78.81 - BACTEREMIA Status: Acute Current Visit: Yes (5) Hyperlipidemia SNOMED Code(s): 53712667 ICD Code: E78.5 - HYPERLIPIDEMIA, UNSPECIFIED Status: Acute Current Visit : Yes (6) Diabetes mellitus SNOMED Code(s): 84045002 ICD Code: E11.9 - TYPE 2 DIABETES MELLITUS WITHOUT COMPLICATIONS Status: Acute Current Visit: Yes Problem List Initiated/Reviewed/Updated: Yes Orders Last 24hrs: Active Orders 24 hr Category Date Time Status Activity as Tolerated [RC] .Routine Care 11/16/16 16:02 Ordered Antiembolic Devices [RC] PER UNIT ROUTINE Care 11/16/16 16:06 Ordered Vital Signs [RC] PER UNIT ROUTINE Care 11/16/16 16:01 Ordered Consult to Case Management [CONS] Routine Cons 11/19/16 08:00 Ordered Heart Healthy Diet [DIET] Diet 11/16/16 Dinner Ordered BMP [BASIC METABOLIC PANEL,BMP] [CHEM] DAILY Lab 11/17/16 05:00 Ordered BMP [BASIC METABOLIC PANEL,BMP] [CHEM] DAILY Lab 11/18/16 05:00 Ordered BMP [BASIC METABOLIC PANEL,BMP] [CHEM] DAILY Lab 11/19/16 05:00 Ordered BMP [BASIC METABOLIC PANEL,BMP] [CHEM] DAILY Lab 11/20/16 05:00 Ordered CBC WITH AUTO DIFF [HEME] DAILY Lab 11/17/16 05:00 Ordered CBC WITH AUTO DIFF [HEME] DAILY Lab 11/18/16 05:00 Ordered CBC WITH AUTO DIFF [HEME] DAILY Lab 11/19/16 05:00 Ordered CBC WITH AUTO DIFF [HEME] DAILY Lab 11/20/16 05:00 Ordered CRP [C-REACTIVE PROTEIN] [CHEM] DAILY Lab 11/17/16 05:00 Ordered CRP [C-REACTIVE PROTEIN] [CHEM] DAILY Lab 11/18/16 05:00 Ordered CRP [C-REACTIVE PROTEIN] [CHEM] DAILY Lab 11/19/16 05:00 Ordered CRP [C-REACTIVE PROTEIN] [CHEM] DAILY Lab 11/20/16 05:00 Ordered LACTIC ACID [CHEM] DAILY Lab 11/17/16 05:00 Ordered LACTIC ACID [CHEM] DAILY Lab 11/18/16 05:00 Ordered LACTIC ACID [CHEM] DAILY Lab 11/19/16 05:00 Ordered LACTIC ACID [CHEM] DAILY Lab 11/20/16 05:00 Ordered MAGNESIUM [CHEM] DAILY Lab 11/17/16 05:00 Ordered MAGNESIUM [CHEM] DAILY Lab 11/18/16 05:00 Ordered MAGNESIUM [CHEM] DAILY Lab 11/19/16 05:00 Ordered MAGNESIUM [CHEM] DAILY Lab 11/20/16 05:00 Ordered ALPRAZolam [Xanax] Med 11/16/16 15:55 Ordered 0.25 mg PO DAILY PRN Amitriptyline [Elavil] Med 11/16/16 21:00 Ordered 50 mg PO BEDTIME Aspirin Med 11/17/16 09:00 Ordered 81 mg PO DAILY Calcium Carbonate/Vitamin D3 Med 11/16/16 21:00 Ordered 1 tab PO BID Enoxaparin [Lovenox] Med 11/17/16 09:00 Ordered 30 mg SUBCUT DAILY Labetalol [Normodyne] Med 11/16/16 21:00 Ordered 100 mg PO BID Levofloxacin/Dextrose 5%-Water [Levaquin in D5W 750 MG/ Med 11/17/16 10:00 Ordered 150 ML] 750 mg Premix Bag 1 bag IV Q24H Levothyroxine [Synthroid] Med 11/17/16 09:00 Ordered 88 mcg PO DAILY Methylcellulose Med 11/17/16 09:00 Ordered 1 tab PO DAILY Omeprazole Med 11/17/16 09:00 Ordered 20 mg PO DAILY Propylene Glycol/Peg 400 [Systane 0.3-0.4% Eye Drops] Med 11/16/16 21:00 Ordered 1 drop EYEBOTH BID Sodium Chloride 0.45% @ 125 MLS/HR(1,000ml) Med 11/16/16 16:30 Ordered Sodium Chloride 0.45% 1,000 ml IV ASDIRECTED Vancomycin Pharmacy to Dose [Pharmacy to Dose - Med 11/16/16 16:00 Ordered Vancomycin] 1 dose .XX ASDIRECTED Vancomycin [Vancocin] 1 gm Med 11/16/16 16:00 Ordered Sodium Chloride 0.9% [Normal Saline] 250 ml IV ONETIME cycloSPORINE Med 11/16/16 21:00 Ordered 1 drop EYEBOTH BID methylPREDNISolone Sod Succ [Solu-MEDROL] Med 11/16/16 16:00 Ordered 125 mg IVPUSH Q8H prednisoLONE Acetate [Pred Forte 1% Ophth Susp] Med 11/17/16 09:00 Ordered 1 drop EYEBOTH DAILY DEX Hose [Antiembolic Hose] [OM.PC] Routine Oth 11/16/16 16:06 Ordered Medication Orders Alprazolam (Xanax) 0.25 mg PO DAILY PRN PRN Reason: Anxiety Aspirin (Aspirin) 81 mg PO DAILY [facility] Enoxaparin Sodium (Lovenox) 30 mg SUBCUT DAILY [facility] Levofloxacin/Dextrose 750 mg/ (Premix) 150 mls @ 100 mls/hr IV Q24H [facility] Vancomycin HCl 1 gm/ Sodium (Chloride) 250 mls @ 250 mls/hr IV ONETIME ONE Stop: 11/16/16 16:59 Sodium Chloride (Sodium Chloride 0.45%) 1,000 mls @ 125 mls/hr IV ASDIRECTED [facility] Labetalol HCl (Normodyne) 100 mg PO BID [facility] Levothyroxine Sodium (Synthroid) 88 mcg PO DAILY [facility] Methylprednisolone Sodium Succinate (Solu-Medrol) 125 mg IVPUSH Q8H [facility] Non-Formulary Medication (Cyclosporine) 1 drop EYEBOTH BID [facility] Non-Formulary Medication (Propylene Glycol/Peg 400 [Systane 0.3-0.4% Eye Drops] ) 1 drop EYEBOTH BID [facility] Non-Formulary Medication (Omeprazole) 20 mg PO DAILY [facility] Non-Formulary Medication (Methylcellulose) 1 tab PO DAILY [facility] Non-Formulary Medication (Calcium Carbonate/Vitamin D3) 1 tab PO BID [facility] Non-Formulary Medication (Amitriptyline [Elavil]) 50 mg PO BEDTIME [facility] Prednisolone Acetate (Pred Forte 1% Ophth Susp) ml EYEBOTH DAILY [facility] Sodium Chloride (Saline Flush) 10 ml FLUSH ASDIRECTED PRN PRN Reason: Keep Vein Open Last Admin: 11/16/16 11:34 Dose: 10 ml Vancomycin HCl (Pharmacy To Dose - Vancomycin) 1 dose .XX ASDIRECTED [facility] Assessment/Plan Comment:: Impression: AUTI, G - Bacteremia, G +; recent MSSA infection with 5 days IV antibiotics Chronic HTN HLD DM type II PMR Plan: IVF IV ABT IV steroids Home meds Daily Labs Contact isolation DVT/GI prophylaxis
[2016-11-16] MEDS ORDERED: 50% Dextrose in Water 50 ML Syringe IVPUSH PRN (16:32)
[2016-11-16] MEDS: methylPREDNISolone Sodium Succinate 125 MG/2 ML SDV IVPUSH SCH (17:38)
[2016-11-16] MEDS: Sodium Chloride 0.45% 1,000 ML IV SCH (17:42)
[2016-11-16] MEDS: Labetalol 100 MG Tab PO SCH (21:40)
[2016-11-16] MEDS: Amitriptyline 25 MG Tab PO SCH (21:41)
[2016-11-16] MEDS: PROPYLENE GLYCOL EYEBOTH SCH (22:33)
[2016-11-16] MEDS: PEG EYEBOTH SCH (22:33)
[2016-11-16] MEDS: [UNRECOGNIZED DRUG - OTHER] EYEBOTH SCH (22:33)
[2016-11-16] MEDS: Insulin Aspart 100 Units/ML 3 ML Pen SUBCUT SCH (22:33)
[2016-11-17] MEDS: methylPREDNISolone Sodium Succinate 125 MG/2 ML SDV IVPUSH SCH ×3 (01:08→17:14)
[2016-11-17] MEDS: Sodium Chloride 0.45% 1,000 ML IV SCH ×3 (02:20→19:41)
[2016-11-17] MEDS: Insulin Aspart 100 Units/ML 3 ML Pen SUBCUT SCH ×4 (07:48→21:19)
[2016-11-17] MEDS: prednisoLONE Acetate 1% Ophth Susp 5 ML Bottle EYEBOTH SCH (09:05)
[2016-11-17] MEDS: PROPYLENE GLYCOL EYEBOTH SCH ×2 (09:06→21:19)
[2016-11-17] MEDS: [UNRECOGNIZED DRUG - OTHER] EYEBOTH SCH ×2 (09:06→21:14)
[2016-11-17] MEDS: Aspirin 81 MG Tab.EC PO SCH (09:06)
[2016-11-17] MEDS: PEG EYEBOTH SCH ×2 (09:06→21:19)
[2016-11-17] MEDS: Enoxaparin 40 MG/0.4 ML Syringe SUBCUT SCH (09:08)
[2016-11-17] MEDS: Labetalol 100 MG Tab PO SCH ×2 (09:08→21:14)
[2016-11-17] MEDS: Levothyroxine 88 MCG Tab PO SCH (09:09)
[2016-11-17] MEDS: Pantoprazole 40 MG Tab.CR PO SCH (09:09)
[2016-11-17] MEDS: Meropenem 1 GM in Sodium Chloride 0.9% 100 ML IV SCH ×2 (12:28→19:39)
--- NOTE | 2016-11-17 15:08 | PCM.PN ---
- General Info Date of Service: 11/17/16 Functional Status: Reports: Pain Controlled - Review of Systems General: Reports: Weakness HEENT: Reports: No Symptoms Pulmonary: Reports: No Symptoms Cardiovascular: Reports: No Symptoms Gastrointestinal: Reports: No Symptoms Genitourinary: Reports: No Symptoms Musculoskeletal: Reports: No Symptoms Skin: Reports: No Symptoms Neurological: Reports: No Symptoms Psychiatric: Reports: No Symptoms - Patient Data Vitals - Most Recent: Last Vital Signs Temp 37.1 C 11/17/16 12:00 Pulse 79 11/17/16 12:00 Resp 14 11/17/16 12:00 BP 114/90 11/17/16 12:00 Pulse Ox 92 L 11/17/16 12:00 Weight - Most Recent: 69.218 kg I&O - Last 24 Hours: Intake & Output 11/17/16 11/17/16 11/17/16 06:59 14:59 22:59 Intake Total 2005 340 Output Total 1700 Balance 305 340 Lab Results Last 24 Hours: Laboratory Results - last 24 hr 11/16/16 11/16/16 11/17/16 Range/Units 17:47 21:38 06:04 WBC 22.57 H (3.98-10.04) K/mm3 RBC 3.59 L (3.98-5.22) M/mm3 Hgb 9.2 L (11.2-15.7) gm/L Hct 29.3 L (34.1-44.9) % MCV 81.6 (79.4-94.8) fl MCH 25.6 (25.6-32.2) pg MCHC 31.4 L (32.2-35.5) g/dl RDW Std Deviation 42.7 (36.4-46.3) fL Plt Count 514 H (182-369) K/mm3 MPV 8.8 L (9.4-12.3) fl Neut % (Auto) 94.4 H (34.0-71.1) % Lymph % (Auto) 4.2 L (19.3-51.7) % [place] % (Auto) 1.2 L (4.7-12.5) % Eos % (Auto) 0 L (0.7-5.8) Baso % (Auto) 0.0 L (0.1-1.2) % Neut # (Auto) 21.29 H (1.56-6.13) K/mm3 Lymph # (Auto) 0.95 L (1.18-3.74) K/mm3 [place] # (Auto) 0.27 (0.24-0.36) K/mm3 Eos # (Auto) 0.00 L (0.04-0.36) K/mm3 Baso # (Auto) 0.01 (0.01-0.08) K/mm3 Manual Slide Review Abnormal smear Sodium (136-145) mEq/L Potassium (3.5-5.1) mEq/L Chloride (98-107) mEq/L Carbon Dioxide (21-32) mEq/L Anion Gap (5-15) BUN (7-18) mg/dL Creatinine (0.55-1.02) mg/dL Est Cr Clr Drug Dosing mL/min Estimated GFR (MDRD) (>60) mL/min BUN/Creatinine Ratio (14-18) Glucose (83-115) mg/dL POC Glucose 241 H 310 H (83-110) mg/dL Lactic Acid (0.4-2.0) mmol/L Calcium (8.5-10.1) mg/dL Magnesium (1.8-2.4) mg/dl C-Reactive Protein (<1.0) mg/dL 11/17/16 11/17/16 11/17/16 Range/Units 06:04 06:04 06:12 WBC (3.98-10.04) K/mm3 RBC (3.98-5.22) M/mm3 Hgb (11.2-15.7) gm/L Hct (34.1-44.9) % MCV (79.4-94.8) fl MCH (25.6-32.2) pg MCHC (32.2-35.5) g/dl RDW Std Deviation (36.4-46.3) fL Plt Count (182-369) K/mm3 MPV (9.4-12.3) fl Neut % (Auto) (34.0-71.1) % Lymph % (Auto) (19.3-51.7) % [place] % (Auto) (4.7-12.5) % Eos % (Auto) (0.7-5.8) Baso % (Auto) (0.1-1.2) % Neut # (Auto) (1.56-6.13) K/mm3 Lymph # (Auto) (1.18-3.74) K/mm3 [place] # (Auto) (0.24-0.36) K/mm3 Eos # (Auto) (0.04-0.36) K/mm3 Baso # (Auto) (0.01-0.08) K/mm3 Manual Slide Review Sodium 138 (136-145) mEq/L Potassium 3.9 (3.5-5.1) mEq/L Chloride 105 (98-107) mEq/L Carbon Dioxide 22 (21-32) mEq/L Anion Gap 14.9 (5-15) BUN 16 (7-18) mg/dL Creatinine 0.8 (0.55-1.02) mg/dL Est Cr Clr Drug Dosing 52.15 mL/min Estimated GFR (MDRD) > 60 (>60) mL/min BUN/Creatinine Ratio 20.0 H (14-18) Glucose 228 H (83-115) mg/dL POC Glucose 229 H (83-110) mg/dL Lactic Acid 0.9 (0.4-2.0) mmol/L Calcium 8.9 (8.5-10.1) mg/dL Magnesium 2.0 (1.8-2.4) mg/dl C-Reactive Protein 36.3 H* (<1.0) mg/dL 11/17/16 Range/Units 10:51 WBC (3.98-10.04) K/mm3 RBC (3.98-5.22) M/mm3 Hgb (11.2-15.7) gm/L Hct (34.1-44.9) % MCV (79.4-94.8) fl MCH (25.6-32.2) pg MCHC (32.2-35.5) g/dl RDW Std Deviation (36.4-46.3) fL Plt Count (182-369) K/mm3 MPV (9.4-12.3) fl Neut % (Auto) (34.0-71.1) % Lymph % (Auto) (19.3-51.7) % [place] % (Auto) (4.7-12.5) % Eos % (Auto) (0.7-5.8) Baso % (Auto) (0.1-1.2) % Neut # (Auto) (1.56-6.13) K/mm3 Lymph # (Auto) (1.18-3.74) K/mm3 [place] # (Auto) (0.24-0.36) K/mm3 Eos # (Auto) (0.04-0.36) K/mm3 Baso # (Auto) (0.01-0.08) K/mm3 Manual Slide Review Sodium (136-145) mEq/L Potassium (3.5-5.1) mEq/L Chloride (98-107) mEq/L Carbon Dioxide (21-32) mEq/L Anion Gap (5-15) BUN (7-18) mg/dL Creatinine (0.55-1.02) mg/dL Est Cr Clr Drug Dosing mL/min Estimated GFR (MDRD) (>60) mL/min BUN/Creatinine Ratio (14-18) Glucose (83-115) mg/dL POC Glucose 303 H (83-110) mg/dL Lactic Acid (0.4-2.0) mmol/L Calcium (8.5-10.1) mg/dL Magnesium (1.8-2.4) mg/dl C-Reactive Protein (<1.0) mg/dL Med Orders - Current: Current Medications Alprazolam (Xanax) 0.25 mg PO DAILY PRN PRN Reason: Anxiety Amitriptyline HCl (Elavil) 50 mg PO BEDTIME [facility] Last Admin: 11/16/16 21:41 Dose: 50 mg Aspirin (Halfprin) 81 mg PO DAILY [facility] Last Admin: 11/17/16 09:06 Dose: 81 mg Dextrose/Water (Dextrose 50% In Water) 50 ml IVPUSH ASDIRECTED PRN PRN Reason: Hypoglycemia Enoxaparin Sodium (Lovenox) 40 mg SUBCUT DAILY [facility] Last Admin: 11/17/16 09:08 Dose: 40 mg Sodium Chloride (Sodium Chloride 0.45%) 1,000 mls @ 125 mls/hr IV ASDIRECTED [facility] Last Admin: 11/17/16 10:48 Dose: 125 mls/hr Vancomycin HCl 1 gm/ Sodium (Chloride) 250 mls @ 250 mls/hr IV Q24H [facility] Meropenem 1 gm/ Sodium (Chloride) 100 mls @ 200 mls/hr IV Q8H [facility] Last Admin: 11/17/16 12:28 Dose: 200 mls/hr Insulin Aspart (Novolog) 0 unit SUBCUT QIDACANDBED [facility] PRN Reason: Protocol Last Admin: 11/17/16 12:30 Dose: 8 units Labetalol HCl (Normodyne) 100 mg PO BID [facility] Last Admin: 11/17/16 09:08 Dose: 100 mg Levothyroxine Sodium (Synthroid) 88 mcg PO DAILY [facility] Last Admin: 11/17/16 09:09 Dose: 88 mcg Methylprednisolone Sodium Succinate (Solu-Medrol) 125 mg IVPUSH Q8H [facility] Last Admin: 11/17/16 09:03 Dose: 125 mg (Cyclosporine 1 Drop ) RestasisPt Own Med 0 drop EYEBOTH BID [facility] Last Admin: 11/17/16 09:06 Dose: 1 drop Propylene Glycol/Peg 400 [Systane 0.3-0. 4% Eye Drops] Pt Own Med 1 drop EYEBOTH BID [facility] Last Admin: 11/17/16 09:06 Dose: 1 drop Non-Formulary Medication (Methylcellulose) 1 tab PO DAILY [facility] Non-Formulary Medication (Calcium Carbonate/Vitamin D3) 1 tab PO BID [facility] Pantoprazole Sodium (Protonix) 40 mg PO DAILY [facility] Last Admin: 11/17/16 09:09 Dose: 40 mg Prednisolone Acetate (Pred Forte 1% Ophth Susp) 0 ml EYEBOTH DAILY [facility] Last Admin: 11/17/16 09:05 Dose: 1 drop Sodium Chloride (Saline Flush) 10 ml FLUSH ASDIRECTED PRN PRN Reason: Keep Vein Open Last Admin: 11/16/16 11:34 Dose: 10 ml Vancomycin HCl (Pharmacy To Dose - Vancomycin) 1 dose .XX ASDIRECTED [facility] Discontinued Medications Levofloxacin/Dextrose 750 mg/ (Premix) 150 mls @ 100 mls/hr IV ONETIME ONE Stop: 11/16/16 13:44 Last Admin: 11/16/16 12:22 Dose: 100 mls/hr Sodium Chloride (Normal Saline) 500 mls @ 999 mls/hr IV .BOLUS ONE Stop: 11/16/16 13:39 Last Admin: 11/16/16 13:26 Dose: 999 mls/hr Levofloxacin/Dextrose 750 mg/ (Premix) 150 mls @ 100 mls/hr IV Q48H [facility] Vancomycin HCl 1 gm/ Sodium (Chloride) 250 mls @ 250 mls/hr IV ONETIME ONE Stop: 11/16/16 16:59 Last Admin: 11/16/16 17:44 Dose: 250 mls/hr - Exam Quality Assessment: DVT Prophylaxis General: Alert, Oriented, Cooperative, No Acute Distress HEENT: Pupils Equal, Pupils Reactive, EOMI Neck: Supple, Trachea Midline, No JVD Lungs: Normal Respiratory Effort Cardiovascular: Regular Rate, Regular Rhythm GI/Abdominal Exam: Normal Bowel Sounds, Soft, No Organomegaly, No Distention (Female) Exam: Deferred Back Exam: Normal Inspection Extremities: Normal Range of Motion Skin: Warm, Dry, Intact Neurological: No New Focal Deficit Psy/Mental Status: Alert, Normal Affect, Normal Mood - Problem List & Annotations (1) Pyelonephritis SNOMED Code(s): 33581689 Code(s): N12 - TUBULO-INTERSTITIAL NEPHRITIS, NOT SPCF ACUTE OR CHRONIC Status: Acute Current Visit: Yes (2) Acute renal insufficiency SNOMED Code(s): 123863390 Code(s): N28.9 - DISORDER OF KIDNEY AND URETER, UNSPECIFIED Status: Acute Current Visit: No (3) Elevated WBC count SNOMED Code(s): 091919757, 828766637 Code(s): D72.829 - ELEVATED WHITE BLOOD CELL COUNT, UNSPECIFIED Status: Acute Current Visit: No (4) Bacteremia SNOMED Code(s): 1847095 Code(s): R78.81 - BACTEREMIA Status: Acute Current Visit: Yes (5) Hyperlipidemia SNOMED Code(s): 65917786 Code(s): E78.5 - HYPERLIPIDEMIA, UNSPECIFIED Status: Acute Current Visit : Yes (6) Diabetes mellitus SNOMED Code(s): 11169227 Code(s): E11.9 - TYPE 2 DIABETES MELLITUS WITHOUT COMPLICATIONS Status: Acute Current Visit: Yes - Problem List Review Problem List Initiated/Reviewed/Updated: Yes - My Orders Last 24 Hours: My Active Orders 11/16/16 15:55 ALPRAZolam [Xanax] 0.25 mg PO DAILY PRN 11/16/16 16:00 Vancomycin Pharmacy to Dose [Pharmacy to Dose - Vancomycin] 1 dose .XX ASDIRECTED methylPREDNISolone Sod Succ [Solu-MEDROL] 125 mg IVPUSH Q8H 11/16/16 16:01 Vital Signs [RC] Q4HR 11/16/16 16:02 Activity as Tolerated [RC] .Routine 11/16/16 16:06 Antiembolic Devices [RC] QSHIFT DEX Hose [Antiembolic Hose] [OM.PC] Routine 11/16/16 16:30 Sodium Chloride 0.45% 1,000 ml IV ASDIRECTED 11/16/16 16:32 Accu Check [Blood Glucose Check, Bedside] [RC] ,,, Dextrose 50% in Water 50 ml IVPUSH ASDIRECTED PRN 11/16/16 16:36 Resuscitation Status Routine 11/16/16 16:52 Isolation [COMM] Routine 11/16/16 21:00 Amitriptyline [Elavil] 50 mg PO BEDTIME Calcium Carbonate/Vitamin D3 1 tab PO BID Labetalol [Normodyne] 100 mg PO BID Propylene Glycol/Peg 400 [Systane 0.3-0.4% Eye Drops] 1 drop EYEBOTH BID cycloSPORINE 0 drop EYEBOTH BID 11/16/16 22:00 Insulin Aspart [NovoLOG] See Protocol SUBCUT QIDACANDBED 11/16/16 [facility] [employer] Diet [DIET] 11/17/16 09:00 Aspirin [Halfprin] 81 mg PO DAILY Enoxaparin [Lovenox] 40 mg SUBCUT DAILY Levothyroxine [Synthroid] 88 mcg PO DAILY Methylcellulose 1 tab PO DAILY Pantoprazole [ProTONIX] 40 mg PO DAILY prednisoLONE Acetate [Pred Forte 1% Ophth Susp] 0 ml EYEBOTH DAILY 11/17/16 12:00 Meropenem [Merrem] 1 gm Sodium Chloride 0.9% [Normal Saline] 100 ml IV Q8H 11/17/16 18:00 Vancomycin [Vancocin] 1 gm Sodium Chloride 0.9% [Normal Saline] 250 ml IV Q24H 11/18/16 05:00 BMP [BASIC METABOLIC PANEL,BMP] [CHEM] DAILY CBC WITH AUTO DIFF [HEME] DAILY CRP [C-REACTIVE PROTEIN] [CHEM] DAILY LACTIC ACID [CHEM] DAILY MAGNESIUM [CHEM] DAILY 11/19/16 05:00 BMP [BASIC METABOLIC PANEL,BMP] [CHEM] DAILY CBC WITH AUTO DIFF [HEME] DAILY CRP [C-REACTIVE PROTEIN] [CHEM] DAILY LACTIC ACID [CHEM] DAILY MAGNESIUM [CHEM] DAILY 11/19/16 08:00 Consult to Case Management [CONS] Routine 11/20/16 05:00 BMP [BASIC METABOLIC PANEL,BMP] [CHEM] DAILY CBC WITH AUTO DIFF [HEME] DAILY CRP [C-REACTIVE PROTEIN] [CHEM] DAILY LACTIC ACID [CHEM] DAILY MAGNESIUM [CHEM] DAILY - Plan Plan:: Impression: AUTI, G - Bacteremia, G +; recent MSSA infection with 5 days IV antibiotics 4/4 bottles are positive for SA, await sensitivity. Chronic HTN HLD DM type II PMR Plan: IVF IV ATBs Repeat BCs on 11/19/16 Decrease IV steroids, 11/19/16 IV steroids Home meds Daily Labs Contact isolation PT/OT/SW consults DVT/GI prophylaxis
[2016-11-17] MEDS: Amitriptyline 25 MG Tab PO SCH (21:14)
[2016-11-18] MEDS: Calcium Carbonate/Vitamin D3 1500 MG-200 Units Tab PO SCH ×4 (00:24→21:32)
[2016-11-18] MEDS: Calcium Polycarbophil 625 MG Tab PO SCH ×2 (00:25→08:21)
[2016-11-18] MEDS: methylPREDNISolone Sodium Succinate 125 MG/2 ML SDV IVPUSH SCH ×2 (00:34→08:21)
[2016-11-18] MEDS: Meropenem 1 GM in Sodium Chloride 0.9% 100 ML IV SCH ×3 (03:55→21:30)
[2016-11-18] MEDS: Sodium Chloride 0.45% 1,000 ML IV SCH (04:13)
[2016-11-18] MEDS: Insulin Aspart 100 Units/ML 3 ML Pen SUBCUT SCH ×4 (08:18→21:34)
[2016-11-18] MEDS: Aspirin 81 MG Tab.EC PO SCH (08:20)
[2016-11-18] MEDS: Levothyroxine 88 MCG Tab PO SCH (08:21)
[2016-11-18] MEDS: Labetalol 100 MG Tab PO SCH ×2 (08:21→21:32)
[2016-11-18] MEDS: Pantoprazole 40 MG Tab.CR PO SCH (08:21)
[2016-11-18] MEDS: [UNRECOGNIZED DRUG - OTHER] EYEBOTH SCH ×2 (08:21→21:33)
[2016-11-18] MEDS: Enoxaparin 40 MG/0.4 ML Syringe SUBCUT SCH (08:21)
[2016-11-18] MEDS: prednisoLONE Acetate 1% Ophth Susp 5 ML Bottle EYEBOTH SCH (08:21)
[2016-11-18] MEDS: PEG EYEBOTH SCH (08:22)
[2016-11-18] MEDS: PROPYLENE GLYCOL EYEBOTH SCH (08:22)
[2016-11-18] MEDS ORDERED: Potassium Chloride 10% 20 MEQ/15 ML Soln 30 ML UD Cup PO ONE (09:42)
[2016-11-18] MEDS ORDERED: Levofloxacin/Dextrose 5%-Water 750 MG in Premix Bag 1 BAG IV SCH (10:00)
[2016-11-18] MEDS ORDERED: ALPRAZolam 0.25 MG Tab PO PRN (10:56)
--- NOTE | 2016-11-18 11:33 | PCM.PN ---
- General Info Date of Service: 11/18/16 Functional Status: Reports: Pain Controlled, Tolerating Diet, Ambulating, Urinating - Review of Systems General: Reports: Weakness HEENT: Reports: No Symptoms Pulmonary: Reports: No Symptoms Cardiovascular: Reports: No Symptoms Gastrointestinal: Reports: No Symptoms Genitourinary: Reports: No Symptoms Musculoskeletal: Reports: No Symptoms Skin: Reports: No Symptoms Neurological: Reports: No Symptoms Psychiatric: Reports: No Symptoms - Patient Data Vitals - Most Recent: Last Vital Signs Temp 36.6 C 11/18/16 08:17 Pulse 72 11/18/16 08:21 Resp 15 11/18/16 08:17 BP 141/60 H 11/18/16 08:21 Pulse Ox 95 11/18/16 08:17 Weight - Most Recent: 71.033 kg I&O - Last 24 Hours: Intake & Output 11/17/16 11/18/16 11/18/16 22:59 06:59 14:59 Intake Total 740 1782 Output Total 1500 800 Balance -760 982 Lab Results Last 24 Hours: Laboratory Results - last 24 hr 11/17/16 11/17/16 11/18/16 Range/Units 17:19 21:12 06:11 WBC 21.19 H (3.98-10.04) K/mm3 RBC 3.53 L (3.98-5.22) M/mm3 Hgb 9.3 L (11.2-15.7) gm/L Hct 29.0 L (34.1-44.9) % MCV 82.2 (79.4-94.8) fl MCH 26.3 (25.6-32.2) pg MCHC 32.1 L (32.2-35.5) g/dl RDW Std Deviation 43.1 (36.4-46.3) fL Plt Count 529 H (182-369) K/mm3 MPV 8.8 L (9.4-12.3) fl Neut % (Auto) 92.7 H (34.0-71.1) % Lymph % (Auto) 4.5 L (19.3-51.7) % [place] % (Auto) 2.5 L (4.7-12.5) % Eos % (Auto) 0 L (0.7-5.8) Baso % (Auto) 0.0 L (0.1-1.2) % Neut # (Auto) 19.65 H (1.56-6.13) K/mm3 Lymph # (Auto) 0.95 L (1.18-3.74) K/mm3 [place] # (Auto) 0.52 H (0.24-0.36) K/mm3 Eos # (Auto) 0.00 L (0.04-0.36) K/mm3 Baso # (Auto) 0.01 (0.01-0.08) K/mm3 Manual Slide Review Abnormal smear Sodium (136-145) mEq/L Potassium (3.5-5.1) mEq/L Chloride (98-107) mEq/L Carbon Dioxide (21-32) mEq/L Anion Gap (5-15) BUN (7-18) mg/dL Creatinine (0.55-1.02) mg/dL Est Cr Clr Drug Dosing mL/min Estimated GFR (MDRD) (>60) mL/min BUN/Creatinine Ratio (14-18) Glucose (83-115) mg/dL POC Glucose 240 H 317 H (83-110) mg/dL Hemoglobin A1c (4.50-6.20) % Lactic Acid (0.4-2.0) mmol/L Calcium (8.5-10.1) mg/dL Magnesium (1.8-2.4) mg/dl C-Reactive Protein (<1.0) mg/dL 11/18/16 11/18/16 11/18/16 Range/Units 06:11 06:11 06:11 WBC (3.98-10.04) K/mm3 RBC (3.98-5.22) M/mm3 Hgb (11.2-15.7) gm/L Hct (34.1-44.9) % MCV (79.4-94.8) fl MCH (25.6-32.2) pg MCHC (32.2-35.5) g/dl RDW Std Deviation (36.4-46.3) fL Plt Count (182-369) K/mm3 MPV (9.4-12.3) fl Neut % (Auto) (34.0-71.1) % Lymph % (Auto) (19.3-51.7) % [place] % (Auto) (4.7-12.5) % Eos % (Auto) (0.7-5.8) Baso % (Auto) (0.1-1.2) % Neut # (Auto) (1.56-6.13) K/mm3 Lymph # (Auto) (1.18-3.74) K/mm3 [place] # (Auto) (0.24-0.36) K/mm3 Eos # (Auto) (0.04-0.36) K/mm3 Baso # (Auto) (0.01-0.08) K/mm3 Manual Slide Review Sodium 139 (136-145) mEq/L Potassium 3.8 (3.5-5.1) mEq/L Chloride 107 (98-107) mEq/L Carbon Dioxide 22 (21-32) mEq/L Anion Gap 13.8 (5-15) BUN 20 H (7-18) mg/dL Creatinine 0.8 (0.55-1.02) mg/dL Est Cr Clr Drug Dosing 52.15 mL/min Estimated GFR (MDRD) > 60 (>60) mL/min BUN/Creatinine Ratio 25.0 H (14-18) Glucose 232 H (83-115) mg/dL POC Glucose (83-110) mg/dL Hemoglobin A1c 7.60 H (4.50-6.20) % Lactic Acid 1.1 (0.4-2.0) mmol/L Calcium 8.9 (8.5-10.1) mg/dL Magnesium 2.2 (1.8-2.4) mg/dl C-Reactive Protein 14.2 H* (<1.0) mg/dL 11/18/16 11/18/16 Range/Units 06:42 10:51 WBC (3.98-10.04) K/mm3 RBC (3.98-5.22) M/mm3 Hgb (11.2-15.7) gm/L Hct (34.1-44.9) % MCV (79.4-94.8) fl MCH (25.6-32.2) pg MCHC (32.2-35.5) g/dl RDW Std Deviation (36.4-46.3) fL Plt Count (182-369) K/mm3 MPV (9.4-12.3) fl Neut % (Auto) (34.0-71.1) % Lymph % (Auto) (19.3-51.7) % [place] % (Auto) (4.7-12.5) % Eos % (Auto) (0.7-5.8) Baso % (Auto) (0.1-1.2) % Neut # (Auto) (1.56-6.13) K/mm3 Lymph # (Auto) (1.18-3.74) K/mm3 [place] # (Auto) (0.24-0.36) K/mm3 Eos # (Auto) (0.04-0.36) K/mm3 Baso # (Auto) (0.01-0.08) K/mm3 Manual Slide Review Sodium (136-145) mEq/L Potassium (3.5-5.1) mEq/L Chloride (98-107) mEq/L Carbon Dioxide (21-32) mEq/L Anion Gap (5-15) BUN (7-18) mg/dL Creatinine (0.55-1.02) mg/dL Est Cr Clr Drug Dosing mL/min Estimated GFR (MDRD) (>60) mL/min BUN/Creatinine Ratio (14-18) Glucose (83-115) mg/dL POC Glucose 226 H 351 H (83-110) mg/dL Hemoglobin A1c (4.50-6.20) % Lactic Acid (0.4-2.0) mmol/L Calcium (8.5-10.1) mg/dL Magnesium (1.8-2.4) mg/dl C-Reactive Protein (<1.0) mg/dL Med Orders - Current: Current Medications Alprazolam (Xanax) 0.25 mg PO DAILY PRN PRN Reason: Anxiety Amitriptyline HCl (Elavil) 50 mg PO BEDTIME [facility] Last Admin: 11/17/16 21:14 Dose: 50 mg Aspirin (Halfprin) 81 mg PO DAILY [facility] Last Admin: 11/18/16 08:20 Dose: 81 mg Calcium Carbonate (Calcium Carbonate/Vitamin D 1500 Mg-200 Unit) 1 tab PO BID [facility] Last Admin: 11/18/16 08:21 Dose: 1 tab Calcium Polycarbophil (Fibercon) 625 mg PO DAILY [facility] Last Admin: 11/18/16 08:21 Dose: 625 mg Dextrose/Water (Dextrose 50% In Water) 50 ml IVPUSH ASDIRECTED PRN PRN Reason: Hypoglycemia Enoxaparin Sodium (Lovenox) 40 mg SUBCUT DAILY [facility] Last Admin: 11/18/16 08:21 Dose: 40 mg Sodium Chloride (Sodium Chloride 0.45%) 1,000 mls @ 125 mls/hr IV ASDIRECTED [facility] Last Admin: 11/18/16 04:13 Dose: 125 mls/hr Meropenem 1 gm/ Sodium (Chloride) 100 mls @ 200 mls/hr IV Q8H [facility] Last Admin: 11/18/16 11:31 Dose: 200 mls/hr Levofloxacin/Dextrose 750 mg/ (Premix) 150 mls @ 100 mls/hr IV Q24H [facility] Insulin Aspart (Novolog) 0 unit SUBCUT QIDACANDBED [facility] PRN Reason: Protocol Last Admin: 11/18/16 11:31 Dose: 10 units Labetalol HCl (Normodyne) 100 mg PO BID [facility] Last Admin: 11/18/16 08:21 Dose: 100 mg Levothyroxine Sodium (Synthroid) 88 mcg PO DAILY [facility] Last Admin: 11/18/16 08:21 Dose: 88 mcg Methylprednisolone Sodium Succinate (Solu-Medrol) 80 mg IVPUSH BID [facility] Methylprednisolone Sodium Succinate (Solu-Medrol) 40 mg IVPUSH DAILY [facility] (Cyclosporine 1 Drop ) RestasisPt Own Med 0 drop EYEBOTH BID [facility] Last Admin: 11/18/16 08:21 Dose: 1 drop Pantoprazole Sodium (Protonix) 40 mg PO DAILY [facility] Last Admin: 11/18/16 08:21 Dose: 40 mg Systane 0.3-0.4% Eye (DropsPt Own Med) 0 each EYEBOTH BID [facility] Prednisolone Acetate (Pred Forte 1% Ophth Susp) 0 ml EYEBOTH DAILY [facility] Last Admin: 11/18/16 08:21 Dose: 1 drop Sodium Chloride (Saline Flush) 10 ml FLUSH ASDIRECTED PRN PRN Reason: Keep Vein Open Last Admin: 11/16/16 11:34 Dose: 10 ml Discontinued Medications Alprazolam (Xanax) 0.25 mg PO DAILY PRN PRN Reason: Anxiety Levofloxacin/Dextrose 750 mg/ (Premix) 150 mls @ 100 mls/hr IV ONETIME ONE Stop: 11/16/16 13:44 Last Admin: 11/16/16 12:22 Dose: 100 mls/hr Sodium Chloride (Normal Saline) 500 mls @ 999 mls/hr IV .BOLUS ONE Stop: 11/16/16 13:39 Last Admin: 11/16/16 13:26 Dose: 999 mls/hr Levofloxacin/Dextrose 750 mg/ (Premix) 150 mls @ 100 mls/hr IV Q48H [facility] Vancomycin HCl 1 gm/ Sodium (Chloride) 250 mls @ 250 mls/hr IV ONETIME ONE Stop: 11/16/16 16:59 Last Admin: 11/16/16 17:44 Dose: 250 mls/hr Vancomycin HCl 1 gm/ Sodium (Chloride) 250 mls @ 250 mls/hr IV Q24H [facility] Last Admin: 11/17/16 17:16 Dose: 250 mls/hr Vancomycin HCl 1 gm/ Sodium (Chloride) 250 mls @ 250 mls/hr IV Q12H [facility] Methylprednisolone Sodium Succinate (Solu-Medrol) 125 mg IVPUSH Q8H [facility] Last Admin: 11/18/16 08:21 Dose: 125 mg Propylene Glycol/Peg 400 [Systane 0.3-0. 4% Eye Drops] Pt Own Med 1 drop EYEBOTH BID [facility] Last Admin: 11/18/16 08:22 Dose: 1 drop Potassium Chloride (Potassium Chloride) 40 meq PO ONETIME ONE Stop: 11/18/16 09:43 Last Admin: 11/18/16 10:02 Dose: 40 meq Vancomycin HCl (Pharmacy To Dose - Vancomycin) 0 dose .XX ASDIRECTED PRN PRN Reason: RX TO DOSE VANCOMYCIN - Exam Quality Assessment: DVT Prophylaxis General: Alert, Oriented, Cooperative, No Acute Distress HEENT: Pupils Equal, Pupils Reactive, EOMI Neck: Supple, Trachea Midline, No JVD Lungs: Normal Respiratory Effort Cardiovascular: Regular Rate, Regular Rhythm GI/Abdominal Exam: Normal Bowel Sounds, Soft, Non-Tender, No Organomegaly, No Distention (Female) Exam: Deferred Back Exam: Normal Inspection Extremities: Normal Inspection, Normal Range of Motion, Non-Tender, No Pedal Edema Skin: Warm, Dry Neurological: No New Focal Deficit, Normal Gait, Normal Speech Psy/Mental Status: Alert, Normal Affect, Normal Mood - Problem List & Annotations (1) Pyelonephritis SNOMED Code(s): 20567828 Code(s): N12 - TUBULO-INTERSTITIAL NEPHRITIS, NOT SPCF ACUTE OR CHRONIC Status: Acute Current Visit: Yes (2) Acute renal insufficiency SNOMED Code(s): 893469383 Code(s): N28.9 - DISORDER OF KIDNEY AND URETER, UNSPECIFIED Status: Acute Current Visit: No (3) Elevated WBC count SNOMED Code(s): 141853704, 036397526 Code(s): D72.829 - ELEVATED WHITE BLOOD CELL COUNT, UNSPECIFIED Status: Acute Current Visit: No (4) Bacteremia SNOMED Code(s): 1204846 Code(s): R78.81 - BACTEREMIA Status: Acute Current Visit: Yes (5) Hyperlipidemia SNOMED Code(s): 78613266 Code(s): E78.5 - HYPERLIPIDEMIA, UNSPECIFIED Status: Acute Current Visit : Yes (6) Diabetes mellitus SNOMED Code(s): 73458529 Code(s): E11.9 - TYPE 2 DIABETES MELLITUS WITHOUT COMPLICATIONS Status: Acute Current Visit: Yes - Problem List Review Problem List Initiated/Reviewed/Updated: Yes - My Orders Last 24 Hours: My Active Orders 11/17/16 12:00 Meropenem [Merrem] 1 gm Sodium Chloride 0.9% [Normal Saline] 100 ml IV Q8H 11/17/16 15:09 Blood Glucose Check, Bedside [RC] QIDACANDBED 11/18/16 10:49 Patient's Own Medication [Ptom] 0 each EYEBOTH BID 11/18/16 10:56 ALPRAZolam [Xanax] 0.25 mg PO DAILY PRN 11/18/16 11:30 Levofloxacin/Dextrose 5%-Water [Levaquin in D5W 750 MG/150 ML] 750 mg Premix Bag 1 bag IV Q24H 11/18/16 21:00 methylPREDNISolone Sod Succ [Solu-MEDROL] 80 mg IVPUSH BID 11/19/16 05:00 BMP [BASIC METABOLIC PANEL,BMP] [CHEM] DAILY CBC WITH AUTO DIFF [HEME] DAILY CRP [C-REACTIVE PROTEIN] [CHEM] DAILY LACTIC ACID [CHEM] DAILY MAGNESIUM [CHEM] DAILY 11/19/16 08:00 Consult to Case Management [CONS] Routine 11/19/16 09:00 methylPREDNISolone Sod Succ [Solu-MEDROL] 40 mg IVPUSH DAILY 11/20/16 05:00 BMP [BASIC METABOLIC PANEL,BMP] [CHEM] DAILY CBC WITH AUTO DIFF [HEME] DAILY CRP [C-REACTIVE PROTEIN] [CHEM] DAILY LACTIC ACID [CHEM] DAILY MAGNESIUM [CHEM] DAILY - Plan Plan:: Impression: AUTI, G - Bacteremia, G +; recent MSSA infection with 5 days IV antibiotics 4/4 bottles are positive for SA, await sensitivity. Chronic HTN HLD DM type II PMR Plan: IVF IV ATBs based on sensitivty-->meropenem/levoquin Needs PICC Repeat BCs on 11/19/16 Decrease IV steroids, 11/19/16 IV steroids Home meds Daily Labs Contact isolation PT/OT/SW consults DVT/GI prophylaxis
[2016-11-18] MEDS: Levofloxacin/Dextrose 5%-Water 750 MG in Premix Bag 1 BAG IV SCH (12:14)
[2016-11-18] MEDS: Saccharomyces Boulardii (Probiotic) 250 MG Cap PO SCH ×2 (13:54→21:33)
[2016-11-18] MEDS ORDERED: Sodium Chloride 0.45% 1,000 ML IV SCH (14:00)
[2016-11-18] MEDS ORDERED: methylPREDNISolone Sodium Succinate 40 MG/1 ML SDV IVPUSH SCH (21:00)
[2016-11-18] MEDS: Amitriptyline 25 MG Tab PO SCH (21:32)
[2016-11-18] MEDS: EYE EYEBOTH SCH (21:33)
[2016-11-18] MEDS: SYSTANE EYEBOTH SCH (21:33)
[2016-11-19] MEDS: Meropenem 1 GM in Sodium Chloride 0.9% 100 ML IV SCH (04:57)
[2016-11-19] MEDS ORDERED: methylPREDNISolone Sodium Succinate 40 MG/1 ML SDV IVPUSH SCH (09:00)
[2016-11-19] MEDS: Insulin Aspart 100 Units/ML 3 ML Pen SUBCUT SCH ×4 (09:06→22:12)
[2016-11-19] MEDS: Levothyroxine 88 MCG Tab PO SCH (09:07)
[2016-11-19] MEDS: Calcium Carbonate/Vitamin D3 1500 MG-200 Units Tab PO SCH ×2 (09:08→21:04)
[2016-11-19] MEDS: Aspirin 81 MG Tab.EC PO SCH (09:08)
[2016-11-19] MEDS: Calcium Polycarbophil 625 MG Tab PO SCH (09:08)
[2016-11-19] MEDS: Pantoprazole 40 MG Tab.CR PO SCH (09:08)
[2016-11-19] MEDS: Labetalol 100 MG Tab PO SCH ×2 (09:08→21:05)
[2016-11-19] MEDS: Enoxaparin 40 MG/0.4 ML Syringe SUBCUT SCH (09:09)
[2016-11-19] MEDS: [UNRECOGNIZED DRUG - OTHER] EYEBOTH SCH ×2 (09:10→21:08)
[2016-11-19] MEDS: prednisoLONE Acetate 1% Ophth Susp 5 ML Bottle EYEBOTH SCH (09:10)
[2016-11-19] MEDS: EYE EYEBOTH SCH ×2 (09:10→21:08)
[2016-11-19] MEDS: SYSTANE EYEBOTH SCH ×2 (09:10→21:08)
[2016-11-19] MEDS: Saccharomyces Boulardii (Probiotic) 250 MG Cap PO SCH ×2 (09:12→21:07)
[2016-11-19] MEDS ORDERED: Diphtheria,Pertussis(Acell),Tetanus Vaccine 0.5 ML SDV IM ONE (09:48)
[2016-11-19] MEDS: Levofloxacin/Dextrose 5%-Water 750 MG in Premix Bag 1 BAG IV SCH (11:30)
--- NOTE | 2016-11-19 13:26 | PCM.PN ---
- General Info Date of Service: 11/19/16 Admission Dx/Problem (Free Text): Admission Diagnosis/Problem Admission Diagnosis/Problem Sepsis Shereen is seen this morning sitting up at bedside. States feels "good" today. Denies f/c/s, no n/v/d. No CP, SOB, abd or back pain. No dysuria, hematuria, urgency or frequency of urination. She slept well last night. Hx: denies having hx of heart murmur, no heart valve replacements, no joint replacements or metal in her body that she is aware of. No site of infection that she is aware of. No skin rash or wounds. She did have "normal" echo done in October of this year. She has been afebrile overnight. No new concerns. She is up independently in room, no dizziness, does not feel lightheaded or weak. Functional Status: Reports: Pain Controlled, Tolerating Diet, Ambulating, Urinating. Denies: New Symptoms - Review of Systems General: Reports: No Symptoms, Weakness (minimal) HEENT: Reports: No Symptoms Pulmonary: Reports: No Symptoms Cardiovascular: Reports: No Symptoms Gastrointestinal: Reports: No Symptoms Genitourinary: Reports: No Symptoms Musculoskeletal: Reports: No Symptoms Skin: Reports: No Symptoms Neurological: Reports: No Symptoms Psychiatric: Reports: No Symptoms - Patient Data Vitals - Most Recent: Last Vital Signs Temp 97.9 F 11/19/16 08:50 Pulse 80 11/19/16 09:08 Resp 14 11/19/16 08:50 BP 135/65 11/19/16 09:08 Pulse Ox 97 11/19/16 08:50 Weight - Most Recent: 159 lb 9.6 oz I&O - Last 24 Hours: Intake & Output 11/18/16 11/19/16 11/19/16 22:59 06:59 14:59 Intake Total 1875 795 180 Output Total 1600 1000 Balance 275 -205 180 Lab Results Last 24 Hours: Laboratory Results - last 24 hr 11/18/16 11/18/16 11/19/16 Range/Units 17:34 21:25 05:55 WBC (3.98-10.04) K/mm3 RBC (3.98-5.22) M/mm3 Hgb (11.2-15.7) gm/L Hct (34.1-44.9) % MCV (79.4-94.8) fl MCH (25.6-32.2) pg MCHC (32.2-35.5) g/dl RDW Std Deviation (36.4-46.3) fL Plt Count (182-369) K/mm3 MPV (9.4-12.3) fl Neut % (Auto) (34.0-71.1) % Lymph % (Auto) (19.3-51.7) % [place] % (Auto) (4.7-12.5) % Eos % (Auto) (0.7-5.8) Baso % (Auto) (0.1-1.2) % Neut # (Auto) (1.56-6.13) K/mm3 Lymph # (Auto) (1.18-3.74) K/mm3 [place] # (Auto) (0.24-0.36) K/mm3 Eos # (Auto) (0.04-0.36) K/mm3 Baso # (Auto) (0.01-0.08) K/mm3 Manual Slide Review Sodium (136-145) mEq/L Potassium (3.5-5.1) mEq/L Chloride (98-107) mEq/L Carbon Dioxide (21-32) mEq/L Anion Gap (5-15) BUN (7-18) mg/dL Creatinine (0.55-1.02) mg/dL Est Cr Clr Drug Dosing mL/min Estimated GFR (MDRD) (>60) mL/min BUN/Creatinine Ratio (14-18) Glucose (83-115) mg/dL POC Glucose 283 H 294 H 261 H (83-110) mg/dL Lactic Acid (0.4-2.0) mmol/L Calcium (8.5-10.1) mg/dL Magnesium (1.8-2.4) mg/dl C-Reactive Protein (<1.0) mg/dL 11/19/16 11/19/16 11/19/16 Range/Units 05:57 05:57 05:57 WBC 13.66 H (3.98-10.04) K/mm3 RBC 3.53 L (3.98-5.22) M/mm3 Hgb 9.1 L (11.2-15.7) gm/L Hct 29.0 L (34.1-44.9) % MCV 82.2 (79.4-94.8) fl MCH 25.8 (25.6-32.2) pg MCHC 31.4 L (32.2-35.5) g/dl RDW Std Deviation 43.4 (36.4-46.3) fL Plt Count 491 H (182-369) K/mm3 MPV 9.3 L (9.4-12.3) fl Neut % (Auto) 89.9 H (34.0-71.1) % Lymph % (Auto) 6.7 L (19.3-51.7) % [place] % (Auto) 2.9 L (4.7-12.5) % Eos % (Auto) 0 L (0.7-5.8) Baso % (Auto) 0.1 (0.1-1.2) % Neut # (Auto) 12.28 H (1.56-6.13) K/mm3 Lymph # (Auto) 0.92 L (1.18-3.74) K/mm3 [place] # (Auto) 0.39 H (0.24-0.36) K/mm3 Eos # (Auto) 0.00 L (0.04-0.36) K/mm3 Baso # (Auto) 0.01 (0.01-0.08) K/mm3 Manual Slide Review Sodium 139 (136-145) mEq/L Potassium 4.0 (3.5-5.1) mEq/L Chloride 107 (98-107) mEq/L Carbon Dioxide 24 (21-32) mEq/L Anion Gap 12.0 (5-15) BUN 27 H (7-18) mg/dL Creatinine 0.9 (0.55-1.02) mg/dL Est Cr Clr Drug Dosing 46.36 mL/min Estimated GFR (MDRD) > 60 (>60) mL/min BUN/Creatinine Ratio 30.0 H (14-18) Glucose 274 H (83-115) mg/dL POC Glucose (83-110) mg/dL Lactic Acid 1.8 (0.4-2.0) mmol/L Calcium 8.6 (8.5-10.1) mg/dL Magnesium 2.1 (1.8-2.4) mg/dl C-Reactive Protein 5.9 H* (<1.0) mg/dL 11/19/16 Range/Units 11:55 WBC (3.98-10.04) K/mm3 RBC (3.98-5.22) M/mm3 Hgb (11.2-15.7) gm/L Hct (34.1-44.9) % MCV (79.4-94.8) fl MCH (25.6-32.2) pg MCHC (32.2-35.5) g/dl RDW Std Deviation (36.4-46.3) fL Plt Count (182-369) K/mm3 MPV (9.4-12.3) fl Neut % (Auto) (34.0-71.1) % Lymph % (Auto) (19.3-51.7) % [place] % (Auto) (4.7-12.5) % Eos % (Auto) (0.7-5.8) Baso % (Auto) (0.1-1.2) % Neut # (Auto) (1.56-6.13) K/mm3 Lymph # (Auto) (1.18-3.74) K/mm3 [place] # (Auto) (0.24-0.36) K/mm3 Eos # (Auto) (0.04-0.36) K/mm3 Baso # (Auto) (0.01-0.08) K/mm3 Manual Slide Review Sodium (136-145) mEq/L Potassium (3.5-5.1) mEq/L Chloride (98-107) mEq/L Carbon Dioxide (21-32) mEq/L Anion Gap (5-15) BUN (7-18) mg/dL Creatinine (0.55-1.02) mg/dL Est Cr Clr Drug Dosing mL/min Estimated GFR (MDRD) (>60) mL/min BUN/Creatinine Ratio (14-18) Glucose (83-115) mg/dL POC Glucose 200 H (83-110) mg/dL Lactic Acid (0.4-2.0) mmol/L Calcium (8.5-10.1) mg/dL Magnesium (1.8-2.4) mg/dl C-Reactive Protein (<1.0) mg/dL Med Orders - Current: Current Medications Alprazolam (Xanax) 0.25 mg PO DAILY PRN PRN Reason: Anxiety Amitriptyline HCl (Elavil) 50 mg PO BEDTIME [facility] Last Admin: 11/18/16 21:32 Dose: 50 mg Aspirin (Halfprin) 81 mg PO DAILY [facility] Last Admin: 11/19/16 09:08 Dose: 81 mg Calcium Carbonate (Calcium Carbonate/Vitamin D 1500 Mg-200 Unit) 1 tab PO BID [facility] Last Admin: 11/19/16 09:08 Dose: 1 tab Calcium Polycarbophil (Fibercon) 625 mg PO DAILY [facility] Last Admin: 11/19/16 09:08 Dose: 625 mg Dextrose/Water (Dextrose 50% In Water) 50 ml IVPUSH ASDIRECTED PRN PRN Reason: Hypoglycemia Enoxaparin Sodium (Lovenox) 40 mg SUBCUT DAILY [facility] Last Admin: 11/19/16 09:09 Dose: 40 mg Levofloxacin/Dextrose 750 mg/ (Premix) 150 mls @ 100 mls/hr IV Q24H [facility] Last Admin: 11/19/16 11:30 Dose: 100 mls/hr Meropenem 500 mg/ Sodium (Chloride) 100 mls @ 200 mls/hr IV Q8H [facility] Insulin Aspart (Novolog) 0 unit SUBCUT QIDACANDBED [facility] PRN Reason: Protocol Last Admin: 11/19/16 11:58 Dose: 4 units Labetalol HCl (Normodyne) 100 mg PO BID [facility] Last Admin: 11/19/16 09:08 Dose: 100 mg Levothyroxine Sodium (Synthroid) 88 mcg PO DAILY [facility] Last Admin: 11/19/16 09:07 Dose: 88 mcg (Cyclosporine 1 Drop ) RestasisPt Own Med 0 drop EYEBOTH BID [facility] Last Admin: 11/19/16 09:10 Dose: 1 drop Pantoprazole Sodium (Protonix) 40 mg PO DAILY [facility] Last Admin: 11/19/16 09:08 Dose: 40 mg Systane 0.3-0.4% Eye (DropsPt Own Med) 0 each EYEBOTH BID [facility] Last Admin: 11/19/16 09:10 Dose: 1 each Prednisolone Acetate (Pred Forte 1% Ophth Susp) 0 ml EYEBOTH DAILY [facility] Last Admin: 11/19/16 09:10 Dose: 1 drop Prednisone (Prednisone) 20 mg PO WITHBREAKFAST [facility] Saccharomyces Boulardii (Florastor) 250 mg PO BID [facility] Last Admin: 11/19/16 09:12 Dose: 250 mg Sodium Chloride (Saline Flush) 10 ml FLUSH ASDIRECTED PRN PRN Reason: Keep Vein Open Last Admin: 11/16/16 11:34 Dose: 10 ml Discontinued Medications Alprazolam (Xanax) 0.25 mg PO DAILY PRN PRN Reason: Anxiety Diphtheria/Tetanus/Acell Pertussis (Adacel) 0.5 ml IM .ONCE ONE Stop: 11/19/16 09:49 Levofloxacin/Dextrose 750 mg/ (Premix) 150 mls @ 100 mls/hr IV ONETIME ONE Stop: 11/16/16 13:44 Last Admin: 11/16/16 12:22 Dose: 100 mls/hr Sodium Chloride (Normal Saline) 500 mls @ 999 mls/hr IV .BOLUS ONE Stop: 11/16/16 13:39 Last Admin: 11/16/16 13:26 Dose: 999 mls/hr Levofloxacin/Dextrose 750 mg/ (Premix) 150 mls @ 100 mls/hr IV Q48H [facility] Vancomycin HCl 1 gm/ Sodium (Chloride) 250 mls @ 250 mls/hr IV ONETIME ONE Stop: 11/16/16 16:59 Last Admin: 11/16/16 17:44 Dose: 250 mls/hr Sodium Chloride (Sodium Chloride 0.45%) 1,000 mls @ 125 mls/hr IV ASDIRECTED [facility] Last Admin: 11/18/16 04:13 Dose: 125 mls/hr Vancomycin HCl 1 gm/ Sodium (Chloride) 250 mls @ 250 mls/hr IV Q24H [facility] Last Admin: 11/17/16 17:16 Dose: 250 mls/hr Meropenem 1 gm/ Sodium (Chloride) 100 mls @ 200 mls/hr IV Q8H [facility] Last Admin: 11/19/16 04:57 Dose: 200 mls/hr Vancomycin HCl 1 gm/ Sodium (Chloride) 250 mls @ 250 mls/hr IV Q12H [facility] Sodium Chloride (Sodium Chloride 0.45%) 1,000 mls @ 70 mls/hr IV ASDIRECTED [facility] Stop: 11/18/16 20:00 Last Admin: 11/18/16 13:58 Dose: 70 mls/hr Methylprednisolone Sodium Succinate (Solu-Medrol) 125 mg IVPUSH Q8H [facility] Last Admin: 11/18/16 08:21 Dose: 125 mg Methylprednisolone Sodium Succinate (Solu-Medrol) 80 mg IVPUSH BID [facility] Stop: 11/18/16 23:00 Last Admin: 11/18/16 21:31 Dose: 80 mg Methylprednisolone Sodium Succinate (Solu-Medrol) 40 mg IVPUSH DAILY [facility] Last Admin: 11/19/16 11:32 Dose: 40 mg Propylene Glycol/Peg 400 [Systane 0.3-0. 4% Eye Drops] Pt Own Med 1 drop EYEBOTH BID [facility] Last Admin: 11/18/16 08:22 Dose: 1 drop Potassium Chloride (Potassium Chloride) 40 meq PO ONETIME ONE Stop: 11/18/16 09:43 Last Admin: 11/18/16 10:02 Dose: 40 meq Saccharomyces Boulardii (Florastor) 500 mg PO BID [facility] Last Admin: 11/18/16 21:33 Dose: Not Given Vancomycin HCl (Pharmacy To Dose - Vancomycin) 0 dose .XX ASDIRECTED PRN PRN Reason: RX TO DOSE VANCOMYCIN - Exam Quality Assessment: DVT Prophylaxis General: Alert, Oriented, Cooperative, No Acute Distress HEENT: Pupils Equal, EOMI, Mucous Membr. Moist/[address] Neck: Supple Lungs: Clear to Auscultation, Normal Respiratory Effort Cardiovascular: Regular Rate, Regular Rhythm, No Murmurs GI/Abdominal Exam: Normal Bowel Sounds, Soft, Non-Tender, No Organomegaly Back Exam: No: CVA Tenderness (L), CVA Tenderness (R) Extremities: No Pedal Edema, Normal Capillary Refill Peripheral Pulses: 1+: Dorsalis Pedis (L), Dorsalis Pedis (R) Neurological: No New Focal Deficit Psy/Mental Status: Alert, Normal Affect, Normal Mood - Problem List & Annotations (1) Sepsis SNOMED Code(s): 32625737 Code(s): A41.9 - SEPSIS, UNSPECIFIED ORGANISM Status: Resolved Priority: High Current Visit: Yes Qualifiers: Sepsis type: methicillin susceptible Staphylococcus aureus Qualified Code(s ): A41.01 - Sepsis due to Methicillin susceptible Staphylococcus aureus (2) Bacteremia SNOMED Code(s): 0609523 Code(s): R78.81 - BACTEREMIA Status: Acute Priority: High Current Visit : Yes (3) Pyelonephritis, acute SNOMED Code(s): 31350013 Code(s): N10 - ACUTE PYELONEPHRITIS Status: Acute Priority: High Current Visit: Yes (4) Thrombocytosis SNOMED Code(s): 3570079, 544123411 Code(s): D47.3 - ESSENTIAL (HEMORRHAGIC) THROMBOCYTHEMIA Status: Acute Priority: High Current Visit: Yes (5) Diabetes mellitus SNOMED Code(s): 19715074 Code(s): E11.9 - TYPE 2 DIABETES MELLITUS WITHOUT COMPLICATIONS Status: Chronic Priority: Medium Current Visit: Yes Qualifiers: Diabetes mellitus type: type 2 Diabetes mellitus complication status: with hyperglycemia 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 Qualified Code(s): E11.65 - Type 2 diabetes mellitus with hyperglycemia - Problem List Review Problem List Initiated/Reviewed/Updated: Yes - My Orders Last 24 Hours: My Active Orders 11/19/16 13:17 PICC Line Insertion [CR] Routine CULTURE BLOOD [BC] Stat CULTURE BLOOD [BC] Stat Blood Culture x2 Reflex Set [OM.PC] Stat 11/20/16 07:00 predniSONE 20 mg PO WITHBREAKFAST - Plan Plan:: Impression: EDUARDO G - Patient with hx of recurrent UTI in the remote past Has seen urology in the past Bacteremia, G +; recent MSSA infection with 5 days IV antibiotics- Hospitalized at [facility] in [place]- records rec'd and reviewed -07/10 bottles are positive for SA; sensitive to levaquin -Cont Levaquin -Plan repeat BC today Chronic HTN- fair to good control HLD DM type II- A1C 7. -CDE consult -Cont accuchecks with SSI coverage during hospital stay PMR- on chronic steroid therapy -Will taper solumedrol to oral prednisone Plan: IVF- taking in good PO fluids now, can DC IV ATBs based on sensitivty-->meropenem/levaquin Needs PICC- will have placed today or tomorrow- plan for 2 wks IV abx as outpatient -Consult ID as outpatient Repeat BCs on 11/19/16 Decrease IV steroids, 11/19/16 Home meds Daily Labs PT/OT/SW consults DVT/GI prophylaxis Patient is Full Code status LOS will be >96 hours d/t awaiting negative repeat blood cultures.
[2016-11-19] MEDS: Meropenem 500 MG in Sodium Chloride 0.9% 100 ML IV SCH ×2 (14:37→21:00)
--- NOTE | 2016-11-19 14:39 | CR ---
Chest: Frontal view of the chest was obtained. Comparison: Previous chest x-ray of 11/16/16. Tip of PICC line is difficult to see. PICC line lies at least at the right atrial and superior vena cava junction. Lungs are clear. Heart is enlarged. Bony structures are grossly intact. Impression: 1. Tip of PICC line is difficult to see but lies at least at the right atrial and superior vena cava junction. This could be withdrawn by about 2 cm to confirm optimal position. 2. Cardiomegaly. Diagnostic code #2
--- NOTE | 2016-11-19 15:11 | PCM.SN ---
- Free Text/Narrative Note: PICC Line Insertion Simple Note Template Date: 11/19/2016 Start:1350 Stop:[address] Miles for PICC placement for long term care social worker antibiotic use. Chart reviewed. Patient educated. Agrees to proceed. Consent signed. Site cleansed with ChloraPrep. Preexisting 20ga IV catheter accessed, site cleansed with chloraprep. Sterile gown, gloves and drape used. 4fr [place] NXT ClearVue PICC inserted 49cm per sterile technique at the right antecubital. Secured with statlock. Flushes well with NaCl with good blood return. Dressed with opsite with CHG. 6 cm PICC catheter remains out for measurement purposes. Chest Xray taken. Radiologist requesting PICC be withdrawn 2 cm. PICC pulled back to 47 cm. Dressed with opsite with CHG. 8 cm of PICC catheter remining out. Confirmed SCV placement per radiologist. Patient tolerated procedure well. No apparent complications noted. Louise Mehta CRNA
[2016-11-19] MEDS: Amitriptyline 25 MG Tab PO SCH (21:07)
[2016-11-20] MEDS: Meropenem 500 MG in Sodium Chloride 0.9% 100 ML IV SCH (03:12)
[2016-11-20] MEDS: predniSONE 20 MG Tab PO SCH (06:52)
[2016-11-20] MEDS: Insulin Aspart 100 Units/ML 3 ML Pen SUBCUT SCH ×4 (06:52→22:27)
[2016-11-20] MEDS: Enoxaparin 40 MG/0.4 ML Syringe SUBCUT SCH (08:12)
[2016-11-20] MEDS: Saccharomyces Boulardii (Probiotic) 250 MG Cap PO SCH ×2 (08:12→20:39)
[2016-11-20] MEDS: Labetalol 100 MG Tab PO SCH ×2 (08:13→20:39)
[2016-11-20] MEDS: Calcium Polycarbophil 625 MG Tab PO SCH (08:13)
[2016-11-20] MEDS: Pantoprazole 40 MG Tab.CR PO SCH (08:13)
[2016-11-20] MEDS: Aspirin 81 MG Tab.EC PO SCH (08:13)
[2016-11-20] MEDS: Levothyroxine 88 MCG Tab PO SCH (08:13)
[2016-11-20] MEDS: Calcium Carbonate/Vitamin D3 1500 MG-200 Units Tab PO SCH ×2 (08:13→20:39)
[2016-11-20] MEDS: prednisoLONE Acetate 1% Ophth Susp 5 ML Bottle EYEBOTH SCH (08:16)
[2016-11-20] MEDS: [UNRECOGNIZED DRUG - OTHER] EYEBOTH SCH ×2 (08:16→20:40)
[2016-11-20] MEDS: EYE EYEBOTH SCH ×2 (08:16→20:41)
[2016-11-20] MEDS: SYSTANE EYEBOTH SCH ×2 (08:16→20:41)
[2016-11-20] MEDS: Levofloxacin/Dextrose 5%-Water 750 MG in Premix Bag 1 BAG IV SCH (11:11)
[2016-11-20] MEDS ORDERED: Sodium Chloride 0.9% 500 ML IV ONE (12:43)
--- NOTE | 2016-11-20 12:51 | PCM.PN ---
- General Info Date of Service: 11/20/16 Admission Dx/Problem (Free Text): Admission Diagnosis/Problem Admission Diagnosis/Problem Sepsis Shereen is seen this morning sitting up at bedside. States feels "pretty good" today. Denies f/c/s. No CP, SOB or back pain. No dysuria, hematuria, urgency or frequency of urination. She does have LLQ discomfort and pain into her left groin area today and pain "over my pubic bone", states "I had pain like that before when I got sick". She does report loose stools today, none yesterday, no hematochezia or melena. Did not have abdominal imagining in ED or on admission. Has good appetite, no nausea or epigastric pain, no heartburn or GERD symptoms. Had PICC line inserted yesterday without incident per [employer]. Functional Status: Reports: Pain Controlled, Tolerating Diet, Ambulating, Urinating - Review of Systems General: Denies: Fever, Chills, Night Sweats HEENT: Reports: No Symptoms Pulmonary: Reports: No Symptoms Cardiovascular: Reports: No Symptoms Gastrointestinal: Reports: Abdominal Pain (LLQ into groin, mild to moderate pain ), Diarrhea (loose stool this morning). Denies: Constipation, Decreased Appetite, Hematochezia, Nausea, Vomiting Genitourinary: Reports: No Symptoms Musculoskeletal: Reports: No Symptoms Skin: Reports: No Symptoms Neurological: Reports: No Symptoms Psychiatric: Reports: No Symptoms - Patient Data Vitals - Most Recent: Last Vital Signs Temp 97.5 F 11/20/16 01:30 Pulse 73 11/20/16 08:15 Resp 16 11/20/16 08:15 BP 156/68 H 11/20/16 08:15 Pulse Ox 97 11/20/16 08:15 Weight - Most Recent: 158 lb 6.4 oz I&O - Last 24 Hours: Intake & Output 11/19/16 11/20/16 11/20/16 22:59 06:59 14:59 Intake Total 730 1400 360 Output Total 900 300 Balance -170 1100 360 Lab Results Last 24 Hours: Laboratory Results - last 24 hr 11/19/16 11/19/16 11/20/16 Range/Units 17:22 21:55 06:45 WBC 14.42 H (3.98-10.04) K/mm3 RBC 3.45 L (3.98-5.22) M/mm3 Hgb 9.0 L (11.2-15.7) gm/L Hct 28.2 L (34.1-44.9) % MCV 81.7 (79.4-94.8) fl MCH 26.1 (25.6-32.2) pg MCHC 31.9 L (32.2-35.5) g/dl RDW Std Deviation 43.6 (36.4-46.3) fL Plt Count 475 H (182-369) K/mm3 MPV 9.2 L (9.4-12.3) fl Neut % (Auto) 63.7 (34.0-71.1) % Lymph % (Auto) 24.7 (19.3-51.7) % [place] % (Auto) 11.3 (4.7-12.5) % Eos % (Auto) 0.2 L (0.7-5.8) Baso % (Auto) 0.1 (0.1-1.2) % Neut # (Auto) 9.19 H (1.56-6.13) K/mm3 Lymph # (Auto) 3.56 (1.18-3.74) K/mm3 [place] # (Auto) 1.63 H (0.24-0.36) K/mm3 Eos # (Auto) 0.03 L (0.04-0.36) K/mm3 Baso # (Auto) 0.01 (0.01-0.08) K/mm3 Manual Slide Review Abnormal smear Sodium (136-145) mEq/L Potassium (3.5-5.1) mEq/L Chloride (98-107) mEq/L Carbon Dioxide (21-32) mEq/L Anion Gap (5-15) BUN (7-18) mg/dL Creatinine (0.55-1.02) mg/dL Est Cr Clr Drug Dosing mL/min Estimated GFR (MDRD) (>60) mL/min BUN/Creatinine Ratio (14-18) Glucose (83-115) mg/dL POC Glucose 232 H 221 H (83-110) mg/dL Lactic Acid (0.4-2.0) mmol/L Calcium (8.5-10.1) mg/dL Magnesium (1.8-2.4) mg/dl C-Reactive Protein (<1.0) mg/dL 11/20/16 11/20/16 11/20/16 Range/Units 06:45 06:45 06:45 WBC (3.98-10.04) K/mm3 RBC (3.98-5.22) M/mm3 Hgb (11.2-15.7) gm/L Hct (34.1-44.9) % MCV (79.4-94.8) fl MCH (25.6-32.2) pg MCHC (32.2-35.5) g/dl RDW Std Deviation (36.4-46.3) fL Plt Count (182-369) K/mm3 MPV (9.4-12.3) fl Neut % (Auto) (34.0-71.1) % Lymph % (Auto) (19.3-51.7) % [place] % (Auto) (4.7-12.5) % Eos % (Auto) (0.7-5.8) Baso % (Auto) (0.1-1.2) % Neut # (Auto) (1.56-6.13) K/mm3 Lymph # (Auto) (1.18-3.74) K/mm3 [place] # (Auto) (0.24-0.36) K/mm3 Eos # (Auto) (0.04-0.36) K/mm3 Baso # (Auto) (0.01-0.08) K/mm3 Manual Slide Review Sodium 141 (136-145) mEq/L Potassium 3.6 (3.5-5.1) mEq/L Chloride 108 H (98-107) mEq/L Carbon Dioxide 27 (21-32) mEq/L Anion Gap 9.6 (5-15) BUN 26 H (7-18) mg/dL Creatinine 0.8 (0.55-1.02) mg/dL Est Cr Clr Drug Dosing 52.15 mL/min Estimated GFR (MDRD) > 60 (>60) mL/min BUN/Creatinine Ratio 32.5 H (14-18) Glucose 143 H (83-115) mg/dL POC Glucose 134 H (83-110) mg/dL Lactic Acid 1.3 (0.4-2.0) mmol/L Calcium 8.6 (8.5-10.1) mg/dL Magnesium 2.2 (1.8-2.4) mg/dl C-Reactive Protein 2.3 H* (<1.0) mg/dL 11/20/16 Range/Units 11:13 WBC (3.98-10.04) K/mm3 RBC (3.98-5.22) M/mm3 Hgb (11.2-15.7) gm/L Hct (34.1-44.9) % MCV (79.4-94.8) fl MCH (25.6-32.2) pg MCHC (32.2-35.5) g/dl RDW Std Deviation (36.4-46.3) fL Plt Count (182-369) K/mm3 MPV (9.4-12.3) fl Neut % (Auto) (34.0-71.1) % Lymph % (Auto) (19.3-51.7) % [place] % (Auto) (4.7-12.5) % Eos % (Auto) (0.7-5.8) Baso % (Auto) (0.1-1.2) % Neut # (Auto) (1.56-6.13) K/mm3 Lymph # (Auto) (1.18-3.74) K/mm3 [place] # (Auto) (0.24-0.36) K/mm3 Eos # (Auto) (0.04-0.36) K/mm3 Baso # (Auto) (0.01-0.08) K/mm3 Manual Slide Review Sodium (136-145) mEq/L Potassium (3.5-5.1) mEq/L Chloride (98-107) mEq/L Carbon Dioxide (21-32) mEq/L Anion Gap (5-15) BUN (7-18) mg/dL Creatinine (0.55-1.02) mg/dL Est Cr Clr Drug Dosing mL/min Estimated GFR (MDRD) (>60) mL/min BUN/Creatinine Ratio (14-18) Glucose (83-115) mg/dL POC Glucose 251 H (83-110) mg/dL Lactic Acid (0.4-2.0) mmol/L Calcium (8.5-10.1) mg/dL Magnesium (1.8-2.4) mg/dl C-Reactive Protein (<1.0) mg/dL Med Orders - Current: Current Medications Alprazolam (Xanax) 0.25 mg PO DAILY PRN PRN Reason: Anxiety Amitriptyline HCl (Elavil) 50 mg PO BEDTIME [facility] Last Admin: 11/19/16 21:07 Dose: 50 mg Aspirin (Halfprin) 81 mg PO DAILY [facility] Last Admin: 11/20/16 08:13 Dose: 81 mg Calcium Carbonate (Calcium Carbonate/Vitamin D 1500 Mg-200 Unit) 1 tab PO BID [facility] Last Admin: 11/20/16 08:13 Dose: 1 tab Calcium Polycarbophil (Fibercon) 625 mg PO DAILY [facility] Last Admin: 11/20/16 08:13 Dose: 625 mg Dextrose/Water (Dextrose 50% In Water) 50 ml IVPUSH ASDIRECTED PRN PRN Reason: Hypoglycemia Enoxaparin Sodium (Lovenox) 40 mg SUBCUT DAILY [facility] Last Admin: 11/20/16 08:12 Dose: 40 mg Levofloxacin/Dextrose 750 mg/ (Premix) 150 mls @ 100 mls/hr IV Q24H [facility] Last Admin: 11/20/16 11:11 Dose: 100 mls/hr Sodium Chloride (Normal Saline) 500 mls @ 999 mls/hr IV .BOLUS ONE Stop: 11/20/16 13:13 Insulin Aspart (Novolog) 0 unit SUBCUT QIDACANDBED [facility] PRN Reason: Protocol Last Admin: 11/20/16 11:18 Dose: 6 units Labetalol HCl (Normodyne) 100 mg PO BID [facility] Last Admin: 11/20/16 08:13 Dose: 100 mg Levothyroxine Sodium (Synthroid) 88 mcg PO DAILY [facility] Last Admin: 11/20/16 08:13 Dose: 88 mcg (Cyclosporine 1 Drop ) RestasisPt Own Med 0 drop EYEBOTH BID [facility] Last Admin: 11/20/16 08:16 Dose: 1 drop Pantoprazole Sodium (Protonix) 40 mg PO DAILY [facility] Last Admin: 11/20/16 08:13 Dose: 40 mg Systane 0.3-0.4% Eye (DropsPt Own Med) 0 each EYEBOTH BID [facility] Last Admin: 11/20/16 08:16 Dose: 1 each Prednisolone Acetate (Pred Forte 1% Ophth Susp) 0 ml EYEBOTH DAILY [facility] Last Admin: 11/20/16 08:16 Dose: 1 drop Prednisone (Prednisone) 20 mg PO WITHBREAKFAST [facility] Stop: 11/24/16 07:01 Last Admin: 11/20/16 06:52 Dose: 20 mg Prednisone (Prednisone) 10 mg PO DAILY [facility] Stop: 11/29/16 09:01 Saccharomyces Boulardii (Florastor) 250 mg PO BID [facility] Last Admin: 11/20/16 08:12 Dose: 250 mg Sodium Chloride (Saline Flush) 10 ml FLUSH ASDIRECTED PRN PRN Reason: Keep Vein Open Last Admin: 11/16/16 11:34 Dose: 10 ml Discontinued Medications Alprazolam (Xanax) 0.25 mg PO DAILY PRN PRN Reason: Anxiety Diphtheria/Tetanus/Acell Pertussis (Adacel) 0.5 ml IM .ONCE ONE Stop: 11/19/16 09:49 Levofloxacin/Dextrose 750 mg/ (Premix) 150 mls @ 100 mls/hr IV ONETIME ONE Stop: 11/16/16 13:44 Last Admin: 11/16/16 12:22 Dose: 100 mls/hr Sodium Chloride (Normal Saline) 500 mls @ 999 mls/hr IV .BOLUS ONE Stop: 11/16/16 13:39 Last Admin: 11/16/16 13:26 Dose: 999 mls/hr Levofloxacin/Dextrose 750 mg/ (Premix) 150 mls @ 100 mls/hr IV Q48H [facility] Vancomycin HCl 1 gm/ Sodium (Chloride) 250 mls @ 250 mls/hr IV ONETIME ONE Stop: 11/16/16 16:59 Last Admin: 11/16/16 17:44 Dose: 250 mls/hr Sodium Chloride (Sodium Chloride 0.45%) 1,000 mls @ 125 mls/hr IV ASDIRECTED [facility] Last Admin: 11/18/16 04:13 Dose: 125 mls/hr Vancomycin HCl 1 gm/ Sodium (Chloride) 250 mls @ 250 mls/hr IV Q24H [facility] Last Admin: 11/17/16 17:16 Dose: 250 mls/hr Meropenem 1 gm/ Sodium (Chloride) 100 mls @ 200 mls/hr IV Q8H [facility] Last Admin: 11/19/16 04:57 Dose: 200 mls/hr Vancomycin HCl 1 gm/ Sodium (Chloride) 250 mls @ 250 mls/hr IV Q12H [facility] Sodium Chloride (Sodium Chloride 0.45%) 1,000 mls @ 70 mls/hr IV ASDIRECTED [facility] Stop: 11/18/16 20:00 Last Admin: 11/18/16 13:58 Dose: 70 mls/hr Meropenem 500 mg/ Sodium (Chloride) 100 mls @ 200 mls/hr IV Q8H [facility] Last Admin: 11/20/16 03:12 Dose: 200 mls/hr Methylprednisolone Sodium Succinate (Solu-Medrol) 125 mg IVPUSH Q8H [facility] Last Admin: 11/18/16 08:21 Dose: 125 mg Methylprednisolone Sodium Succinate (Solu-Medrol) 80 mg IVPUSH BID [facility] Stop: 11/18/16 23:00 Last Admin: 11/18/16 21:31 Dose: 80 mg Methylprednisolone Sodium Succinate (Solu-Medrol) 40 mg IVPUSH DAILY [facility] Last Admin: 11/19/16 11:32 Dose: 40 mg Propylene Glycol/Peg 400 [Systane 0.3-0. 4% Eye Drops] Pt Own Med 1 drop EYEBOTH BID [facility] Last Admin: 11/18/16 08:22 Dose: 1 drop Potassium Chloride (Potassium Chloride) 40 meq PO ONETIME ONE Stop: 11/18/16 09:43 Last Admin: 11/18/16 10:02 Dose: 40 meq Saccharomyces Boulardii (Florastor) 500 mg PO BID [facility] Last Admin: 11/18/16 21:33 Dose: Not Given Vancomycin HCl (Pharmacy To Dose - Vancomycin) 0 dose .XX ASDIRECTED PRN PRN Reason: RX TO DOSE VANCOMYCIN - Exam Quality Assessment: DVT Prophylaxis General: Alert, Oriented, Cooperative, No Acute Distress HEENT: Pupils Equal, Pupils Reactive, EOMI, Mucous Membr. Moist/[place] Neck: Supple Lungs: Clear to Auscultation, Normal Respiratory Effort Cardiovascular: Regular Rate, Regular Rhythm, No Murmurs GI/Abdominal Exam: Normal Bowel Sounds, Soft, No Organomegaly, No Distention, No Mass, Tender (mild tenderness to LLQ of abdomen which seems to radiate into her groin), Other (discomfort with palpation over left side of pubic bone). No : Hernia, Mass, Hepatomegaly, Splenomegaly (Female) Exam: Deferred Back Exam: CVA Tenderness (L) (mild pain today). No: CVA Tenderness (R) Extremities: Normal Inspection, Non-Tender, No Pedal Edema, Other (teds bilat) Peripheral Pulses: 2+: Dorsalis Pedis (L), Dorsalis Pedis (R) Skin: Warm, Dry, Intact, Other (PICC site to rt AC without erythema or S/S of infection, dressing CDI) Neurological: No New Focal Deficit, Normal Speech, Normal Tone Psy/Mental Status: Alert, Normal Affect, Normal Mood - Problem List & Annotations (1) Sepsis SNOMED Code(s): 08603681 Code(s): A41.9 - SEPSIS, UNSPECIFIED ORGANISM Status: Resolved Priority: High Current Visit: Yes Qualifiers: Sepsis type: methicillin susceptible Staphylococcus aureus Qualified Code(s ): A41.01 - Sepsis due to Methicillin susceptible Staphylococcus aureus (2) Bacteremia SNOMED Code(s): 2836059 Code(s): R78.81 - BACTEREMIA Status: Acute Priority: High Current Visit : Yes (3) Pyelonephritis, acute SNOMED Code(s): 88539987 Code(s): N10 - ACUTE PYELONEPHRITIS Status: Acute Priority: High Current Visit: Yes (4) Thrombocytosis SNOMED Code(s): 8160425, 967911546 Code(s): D47.3 - ESSENTIAL (HEMORRHAGIC) THROMBOCYTHEMIA Status: Acute Priority: High Current Visit: Yes (5) Diabetes mellitus SNOMED Code(s): 24621149 Code(s): E11.9 - TYPE 2 DIABETES MELLITUS WITHOUT COMPLICATIONS Status: Chronic Priority: Medium Current Visit: Yes Qualifiers: Diabetes mellitus type: type 2 Diabetes mellitus complication status: with hyperglycemia Diabetes mellitus fpc insulin use: without fpc use Qualified Code(s): E11.65 - Type 2 diabetes mellitus with hyperglycemia (6) LLQ abdominal pain SNOMED Code(s): 982331891 Code(s): R10.32 - LEFT LOWER QUADRANT PAIN Status: Acute Priority: High Current Visit: Yes - Problem List Review Problem List Initiated/Reviewed/Updated: Yes - My Orders Last 24 Hours: My Active Orders 11/19/16 13:17 Blood Culture x2 Reflex Set [OM.PC] Stat 11/19/16 13:32 Consult to Diabetic Nurse Specialist [CONS] Routine OT Evaluation and Treatment [CONS] Routine PT Evaluation and Treatment [CONS] Routine 11/19/16 13:42 CULTURE BLOOD [BC] Stat 11/19/16 13:50 CULTURE BLOOD [BC] Stat 11/20/16 07:00 predniSONE 20 mg PO WITHBREAKFAST 11/20/16 12:41 Abdomen Pelvis w wo Cont [CT] Routine Pelvis 1V or 2V [CR] Routine 11/20/16 12:43 Sodium Chloride 0.9% [Normal Saline] 500 ml IV .BOLUS 11/21/16 05:11 C-REACTIVE PROTEIN [CHEM] AM CBC WITH AUTO DIFF [HEME] AM COMPREHENSIVE METABOLIC PN,CMP [CHEM] AM MAGNESIUM [CHEM] AM 11/25/16 09:00 predniSONE 10 mg PO DAILY - Plan Plan:: Impression: AUTI, gram negative- likely pyelonephritis IV levaquin and merrem--will DC merrem today Probiotic Patient with hx of recurrent UTI in the remote past Has seen urology in the past Bacteremia, G +; recent MSSA infection with 5 days IV antibiotics- Hospitalized at [facility] in [place]- records rec'd and reviewed -07/10 bottles are positive for SA; sensitive to levaquin -Cont Levaquin -Plan repeat BC yesterday--pending -Continues to be asymptomatic; no F/C/S LLQ abdominal pain/groin pain with pain onto pubic bone "happened before when I got sick"- -Will further eval with CT of abd/pelvis with contrast and plain films of pelvis today -Patient immunocompromised with chronic corticosteroid use due to PMR--high risk for other atypical infectious causes for recurrent bacteremia other than AUTI/pyelonephritis. Chronic HTN- fair to good control HLD DM type II- A1C 7. -CDE consult -Cont accuchecks with SSI coverage during hospital stay PMR- on chronic steroid therapy -Will taper solumedrol to oral prednisone then to usual home dose of prednisone 5mg PO BID Plan: IVF- taking in good PO fluids now, can DC IV ATBs based on sensitivty-->levaquin, will DC merrem today; continue florastor Needs PICC- will have placed today or tomorrow- plan for 2 wks IV abx as outpatient -Consult ID as outpatient--scheduled for Saturday of this week with [facility] in [place] Repeat BCs on 11/19/16 Decrease IV steroids, 11/19/16 Home meds Daily Labs PT/OT/SW consults DVT/GI prophylaxis Patient is Full Code status LOS will be >96 hours d/t awaiting negative repeat blood cultures--likely dc home within 24 hrs pending repeat blood culture results
[2016-11-20] MEDS ORDERED: Iopamidol 755 Mg/ML 100 ML Bottle IVPUSH ONE (14:01)
[2016-11-20] MEDS ORDERED: Sodium Chloride 0.9% 10 ML Syringe FLUSH PRN (14:01)
--- NOTE | 2016-11-20 14:23 | CR ---
Pelvis: AP view of the pelvis was obtained. Comparison: Study compared to previous CT exam of 07/03/14 and 02/21/10. Large sclerotic lesion is seen above the left hip. 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 Joint spaces within both hips are maintained. Sacroiliac joints are within normal limits. Degenerative change and mild scoliosis is partially visualized within the lumbar spine. No acute abnormality is identified. Bony structures are osteopenic. Impression: 1. Incidental findings as noted above. Diagnostic code #2
--- NOTE | 2016-11-20 14:40 | CT ---
CT abdomen and pelvis Technique: Multiple axial sections were obtained from above the dome of the diaphragm inferiorly through the pubic symphysis. Intravenous and oral contrast was utilized. Delayed images were obtained through the bladder. Comparison: Previous abdominal and pelvic CT exam performed as a renal stone protocol dated 07/03/14. Findings: Slight atelectasis seen within the left lung base. Liver shows no focal parenchymal abnormality. Spleen appears within normal limits. Adrenal glands show no nodule. Gallbladder shows no calcified gallstones. Kidneys show symmetric contrast enhancement. Incidental extrarenal pelvis noted within the right kidney. No ureteral dilatation is seen. Pancreas appears within normal limits. Aorta and iliac vessels show atherosclerotic change without aneurysmal dilatation. No retroperitoneal adenopathy or mesenteric abnormalities are seen. No pelvic mass or adenopathy is seen. Delayed images show contrast within the bladder. Appendix not visualized. Mild increased stool seen within the right colon and transverse colon. Degenerative change and scoliosis are noted within the spine. Impression: 1. Mild increased stool. 2. Other incidental findings. Nothing acute is appreciated. Diagnostic code #2
[2016-11-20] MEDS: Amitriptyline 25 MG Tab PO SCH (20:39)
[2016-11-21] MEDS: Insulin Aspart 100 Units/ML 3 ML Pen SUBCUT SCH (06:40)
[2016-11-21] MEDS: predniSONE 20 MG Tab PO SCH (06:46)
--- NOTE | 2016-11-21 07:29 | PCM.DCSUM1 ---
<Karen Miles - Last Filed: 11/22/16 08:35> Discharge Summary - Hospital Course Free Text/Narrative:: 76 year old female recently admitted with acute encephalopathy, treated at [facility]. The patient was discharged roughly 3 weeks [employer]. She was called by the hospital after blood cultures drawn less than 24 hours ago were positive. The blood cultures grew gram positive cocci; the patient was treated with IV antibiotics for MSSA 3 weeks ago in [place]. Last night the patient presented with dizziness associated with fatigue. She also reported fever and chills, she was discharged with a Bactrim DS prescription for a UTI. As a result of the blood cultures last night, she was notified by the hospital to come to the emergency room. Hospitalist service was consulted for admission for bacteremia. She was admitted to med surg unit. Started on IV abx, merrem and levaquin based on UA/UC sensitivity, ecoli and MSSA blood culture. She did well. Was up ambulatory, worked with PT/OT. Records rec'd from [facility] and reviewed- echo was obtained and reviewed, WNL. Repeat BC were negative. She had complaints of LLQ pain and pain to lt pubic bone. CT of abd/pelvis with contrast and plain films of pelvis were obtained for further eval; both unremarkable. She is discharged home. Consult with ID is set up for Saturday11/23/16 in [facility]. She will continue with IV abx via PICC as outpatient x 2 weeks unless directed otherwise by ID. She will have f/up with PCP Dr. Richardson early next week. - Discharge Data Discharge Date: 11/21/16 (admit date11/16/16) Discharge Disposition: Home, Self-Care 01 Condition: Good - Discharge Diagnosis/Problem(s) (1) Sepsis SNOMED Code(s): 36422566 ICD Code: A41.9 - SEPSIS, UNSPECIFIED ORGANISM Status: Resolved Priority : High Qualifiers: Sepsis type: methicillin susceptible Staphylococcus aureus Qualified Code(s ): A41.01 - Sepsis due to Methicillin susceptible Staphylococcus aureus (2) Bacteremia SNOMED Code(s): 8744226 ICD Code: R78.81 - BACTEREMIA Status: Acute Priority: High (3) Pyelonephritis, acute SNOMED Code(s): 77092457 ICD Code: N10 - ACUTE PYELONEPHRITIS Status: Acute Priority: High (4) Thrombocytosis SNOMED Code(s): 6764595, 642647003 ICD Code: D47.3 - ESSENTIAL (HEMORRHAGIC) THROMBOCYTHEMIA Status: Acute Priority: High (5) Diabetes mellitus SNOMED Code(s): 41571878 ICD Code: E11.9 - TYPE 2 DIABETES MELLITUS WITHOUT COMPLICATIONS Status: Chronic Priority: Medium Qualifiers: Diabetes mellitus type: type 2 Diabetes mellitus complication status: with hyperglycemia Diabetes mellitus gang leader insulin use: without gang leader use Qualified Code(s): E11.65 - Type 2 diabetes mellitus with hyperglycemia (6) LLQ abdominal pain SNOMED Code(s): 090486505 ICD Code: R10.32 - LEFT LOWER QUADRANT PAIN Status: Acute Priority: High - Patient Summary/Data Operative Procedure(s) Performed: None Complications: None Consults: Consultations 11/19/16 08:00 Consult to Case Management [CONS] Routine 11/19/16 13:32 Consult to Diabetic Nurse Specialist [CONS] Routine OT Evaluation and Treatment [CONS] Routine PT Evaluation and Treatment [CONS] Routine Labs Pending at D/C: None Recommended Follow-up Testing/Procedures: IV antibiotic, Levaquin 750mg QD via PICC as outpatient Follow up with ID as scheduled on Saturday11/23/16 Follow up with PCP, Dr. Richardson, early next week for recheck. Planned Operative Procedure(s) after DC: None Hospital Course: As above - Patient Instructions Diet: Usual Diet as Tolerated Activity: As Tolerated Showering/Bathing: May Shower (keep PICC line site covered, clean and dry) Notify Provider of: Fever, Increased Pain, Swelling and Redness, Nausea and/or Vomiting - Discharge Plan Prescriptions/Med Rec: Prednisone [IJD: Prednisone] 10 mg PO DAILY #11 tab Home Medications: Home Meds ALPRAZolam [Xanax] 0.25 mg PO DAILY PRN 07/03/14 [History] Amitriptyline [Elavil] 50 mg PO BEDTIME 07/03/14 [History] Calcium Carbonate/Vitamin D3 [Calcium 600 + Vit D 400] 1 tab PO BID 07/03/14 [ History] Levothyroxine [Synthroid] 88 mcg PO DAILY 07/03/14 [History] metFORMIN [Glucophage] 500 mg PO BID 07/03/14 [History] Aspirin 81 mg PO DAILY 01/31/15 [History] Labetalol [Normodyne] 100 mg PO BID 01/31/15 [History] cycloSPORINE [Restasis] 1 drop EYEBOTH BID 01/31/15 [History] prednisoLONE Acetate [Pred Forte 1% Ophth Susp] 1 drop EYEBOTH DAILY 03/14/16 [ History] Methylcellulose [Fiber] 1 tab PO DAILY 10/27/16 [History] Omeprazole 20 mg PO DAILY 10/27/16 [History] Propylene Glycol/Peg 400 [Systane 0.3-0.4% Eye Drops] 1 drop EYEBOTH BID [History] Losartan [Cozaar] 25 mg PO DAILY 11/16/16 [History] Prednisone [IJD: Prednisone] 10 mg PO DAILY #11 tab 11/21/16 [Rx] Patient Handouts: Pyelonephritis, Adult, [id number], Staphylococcal Infection , Sepsis, Adult, PICC Insertion, Care After, PICC Home Guide, Central Lines, [id number], Bacteremia Referrals: Haseeb Oconnor MD [Ordering Only Provider] - 11/23/16 11:00 am (appointment at 11:00 ( time) on november 23 at [facility] in [place],, please come 30 minutes prior to the appointment to register , bring photo ID and insurance cards ) Phu Leavitt MD [Primary Care Provider] - 11/28/16 10:45 am (Please follow-up with Dr. Leavitt on Saturday, November 28 at 1045am. Please come 15 minutes prior to the appointment bring photo id & insurance cards.) - Discharge Summary/Plan Comment DC Time >30 min.: Yes (40 min) - General Info Date of Service: 11/21/16 Admission Dx/Problem (Free Text: Admission Diagnosis/Problem Admission Diagnosis/Problem Sepsis Shereen is seen this morning sitting up at bedside. Has just had shower. Feels good, is ready for discharge today. Repeat BC are negative. She has been afebrile. She continues to have lt sided pain to "pubic bone" pain. No further loose stools this morning. PICC site is not bothering her. Functional Status: Reports: Pain Controlled, Tolerating Diet, Ambulating, Urinating. Denies: New Symptoms - Review of Systems General: Reports: No Symptoms HEENT: Reports: No Symptoms Pulmonary: Reports: No Symptoms Cardiovascular: Reports: No Symptoms Gastrointestinal: Reports: No Symptoms Genitourinary: Reports: No Symptoms Musculoskeletal: Reports: Other (pain to left pubic bone) Skin: Reports: No Symptoms Neurological: Reports: No Symptoms Psychiatric: Reports: No Symptoms - Patient Data Vitals - Most Recent: Last Vital Signs Temp 97.2 F 11/21/16 02:30 Pulse 73 11/21/16 02:30 Resp 16 11/21/16 02:30 BP 136/90 11/21/16 02:30 Pulse Ox 97 11/21/16 02:30 Weight - Most Recent: 70.76 kg I&O - Last 24 hours: Intake & Output 11/20/16 11/21/16 11/21/16 22:59 06:59 14:59 Intake Total 1750 700 Output Total 1650 Balance 100 700 Lab Results - Last 24 hrs: Laboratory Results - last 24 hr 11/20/16 11/20/16 11/20/16 Range/Units 06:45 06:45 11:13 WBC 14.42 H (3.98-10.04) K/mm3 RBC 3.45 L (3.98-5.22) M/mm3 Hgb 9.0 L (11.2-15.7) gm/L Hct 28.2 L (34.1-44.9) % MCV 81.7 (79.4-94.8) fl MCH 26.1 (25.6-32.2) pg MCHC 31.9 L (32.2-35.5) g/dl RDW Std Deviation 43.6 (36.4-46.3) fL Plt Count 475 H (182-369) K/mm3 MPV 9.2 L (9.4-12.3) fl Neut % (Auto) 63.7 (34.0-71.1) % Lymph % (Auto) 24.7 (19.3-51.7) % Gregory % (Auto) 11.3 (4.7-12.5) % Eos % (Auto) 0.2 L (0.7-5.8) Baso % (Auto) 0.1 (0.1-1.2) % Neut # (Auto) 9.19 H (1.56-6.13) K/mm3 Lymph # (Auto) 3.56 (1.18-3.74) K/mm3 Gregory # (Auto) 1.63 H (0.24-0.36) K/mm3 Eos # (Auto) 0.03 L (0.04-0.36) K/mm3 Baso # (Auto) 0.01 (0.01-0.08) K/mm3 Manual Slide Review Abnormal smear POC Glucose 251 H (83-110) mg/dL Lactic Acid 1.3 (0.4-2.0) mmol/L 11/20/16 11/20/16 11/21/16 Range/Units 17:09 20:46 05:11 WBC 14.92 H (3.98-10.04) K/mm3 RBC 3.64 L (3.98-5.22) M/mm3 Hgb 9.3 L (11.2-15.7) gm/L Hct 29.8 L (34.1-44.9) % MCV 81.9 (79.4-94.8) fl MCH 25.5 L (25.6-32.2) pg MCHC 31.2 L (32.2-35.5) g/dl RDW Std Deviation 43.0 (36.4-46.3) fL Plt Count 417 H (182-369) K/mm3 MPV 9.0 L (9.4-12.3) fl Neut % (Auto) 64.5 (34.0-71.1) % Lymph % (Auto) 22.5 (19.3-51.7) % Gregory % (Auto) 10.1 (4.7-12.5) % Eos % (Auto) 1.9 (0.7-5.8) Baso % (Auto) 0.1 (0.1-1.2) % Neut # (Auto) 9.63 H (1.56-6.13) K/mm3 Lymph # (Auto) 3.35 (1.18-3.74) K/mm3 Gregory # (Auto) 1.51 H (0.24-0.36) K/mm3 Eos # (Auto) 0.28 (0.04-0.36) K/mm3 Baso # (Auto) 0.01 (0.01-0.08) K/mm3 Manual Slide Review POC Glucose 183 H 193 H (83-110) mg/dL Lactic Acid (0.4-2.0) mmol/L 11/21/16 Range/Units 06:33 WBC (3.98-10.04) K/mm3 RBC (3.98-5.22) M/mm3 Hgb (11.2-15.7) gm/L Hct (34.1-44.9) % MCV (79.4-94.8) fl MCH (25.6-32.2) pg MCHC (32.2-35.5) g/dl RDW Std Deviation (36.4-46.3) fL Plt Count (182-369) K/mm3 MPV (9.4-12.3) fl Neut % (Auto) (34.0-71.1) % Lymph % (Auto) (19.3-51.7) % Gregory % (Auto) (4.7-12.5) % Eos % (Auto) (0.7-5.8) Baso % (Auto) (0.1-1.2) % Neut # (Auto) (1.56-6.13) K/mm3 Lymph # (Auto) (1.18-3.74) K/mm3 Gregory # (Auto) (0.24-0.36) K/mm3 Eos # (Auto) (0.04-0.36) K/mm3 Baso # (Auto) (0.01-0.08) K/mm3 Manual Slide Review POC Glucose 128 H (83-110) mg/dL Lactic Acid (0.4-2.0) mmol/L RAEANN Results - Last 24 hrs: Microbiology 11/19/16 13:42 Aerobic Blood Culture - Preliminary Blood - Venous - Lab Draw NO GROWTH AFTER 1 DAY Anaerobic Blood Culture - Preliminary NO GROWTH AFTER 1 DAY 11/19/16 13:50 Aerobic Blood Culture - Preliminary Blood - Venous NO GROWTH AFTER 1 DAY Anaerobic Blood Culture - Preliminary NO GROWTH AFTER 1 DAY Med Orders - Current: Current Medications Alprazolam (Xanax) 0.25 mg PO DAILY PRN PRN Reason: Anxiety Amitriptyline HCl (Elavil) 50 mg PO BEDTIME [facility] Last Admin: 11/20/16 20:39 Dose: 50 mg Aspirin (Halfprin) 81 mg PO DAILY [facility] Last Admin: 11/20/16 08:13 Dose: 81 mg Calcium Carbonate (Calcium Carbonate/Vitamin D 1500 Mg-200 Unit) 1 tab PO BID [facility] Last Admin: 11/20/16 20:39 Dose: 1 tab Calcium Polycarbophil (Fibercon) 625 mg PO DAILY [facility] Last Admin: 11/20/16 08:13 Dose: 625 mg Dextrose/Water (Dextrose 50% In Water) 50 ml IVPUSH ASDIRECTED PRN PRN Reason: Hypoglycemia Enoxaparin Sodium (Lovenox) 40 mg SUBCUT DAILY [facility] Last Admin: 11/20/16 08:12 Dose: 40 mg Levofloxacin/Dextrose 750 mg/ (Premix) 150 mls @ 100 mls/hr IV Q24H [facility] Last Admin: 11/20/16 11:11 Dose: 100 mls/hr Insulin Aspart (Novolog) 0 unit SUBCUT QIDACANDBED [facility] PRN Reason: Protocol Last Admin: 11/21/16 06:40 Dose: Not Given Labetalol HCl (Normodyne) 100 mg PO BID [facility] Last Admin: 11/20/16 20:39 Dose: 100 mg Levothyroxine Sodium (Synthroid) 88 mcg PO DAILY [facility] Last Admin: 11/20/16 08:13 Dose: 88 mcg (Cyclosporine 1 Drop ) RestasisPt Own Med 0 drop EYEBOTH BID [facility] Last Admin: 11/20/16 20:40 Dose: 1 drop Pantoprazole Sodium (Protonix) 40 mg PO DAILY [facility] Last Admin: 11/20/16 08:13 Dose: 40 mg Systane 0.3-0.4% Eye (DropsPt Own Med) 0 each EYEBOTH BID [facility] Last Admin: 11/20/16 20:41 Dose: 1 each Prednisolone Acetate (Pred Forte 1% Ophth Susp) 0 ml EYEBOTH DAILY [facility] Last Admin: 11/20/16 08:16 Dose: 1 drop Prednisone (Prednisone) 20 mg PO WITHBREAKFAST [facility] Stop: 11/24/16 07:01 Last Admin: 11/21/16 06:46 Dose: 20 mg Prednisone (Prednisone) 10 mg PO DAILY [facility] Stop: 11/29/16 09:01 Saccharomyces Boulardii (Florastor) 250 mg PO BID [facility] Last Admin: 11/20/16 20:39 Dose: 250 mg Sodium Chloride (Saline Flush) 10 ml FLUSH ONETIME PRN PRN Reason: IV FLUSH Last Admin: 11/20/16 14:20 Dose: 10 ml Discontinued Medications Alprazolam (Xanax) 0.25 mg PO DAILY PRN PRN Reason: Anxiety Diphtheria/Tetanus/Acell Pertussis (Adacel) 0.5 ml IM .ONCE ONE Stop: 11/19/16 09:49 Levofloxacin/Dextrose 750 mg/ (Premix) 150 mls @ 100 mls/hr IV ONETIME ONE Stop: 11/16/16 13:44 Last Admin: 11/16/16 12:22 Dose: 100 mls/hr Sodium Chloride (Normal Saline) 500 mls @ 999 mls/hr IV .BOLUS ONE Stop: 11/16/16 13:39 Last Admin: 11/16/16 13:26 Dose: 999 mls/hr Levofloxacin/Dextrose 750 mg/ (Premix) 150 mls @ 100 mls/hr IV Q48H [facility] Vancomycin HCl 1 gm/ Sodium (Chloride) 250 mls @ 250 mls/hr IV ONETIME ONE Stop: 11/16/16 16:59 Last Admin: 11/16/16 17:44 Dose: 250 mls/hr Sodium Chloride (Sodium Chloride 0.45%) 1,000 mls @ 125 mls/hr IV ASDIRECTED [facility] Last Admin: 11/18/16 04:13 Dose: 125 mls/hr Vancomycin HCl 1 gm/ Sodium (Chloride) 250 mls @ 250 mls/hr IV Q24H [facility] Last Admin: 11/17/16 17:16 Dose: 250 mls/hr Meropenem 1 gm/ Sodium (Chloride) 100 mls @ 200 mls/hr IV Q8H [facility] Last Admin: 11/19/16 04:57 Dose: 200 mls/hr Vancomycin HCl 1 gm/ Sodium (Chloride) 250 mls @ 250 mls/hr IV Q12H [facility] Sodium Chloride (Sodium Chloride 0.45%) 1,000 mls @ 70 mls/hr IV ASDIRECTED [facility] Stop: 11/18/16 20:00 Last Admin: 11/18/16 13:58 Dose: 70 mls/hr Meropenem 500 mg/ Sodium (Chloride) 100 mls @ 200 mls/hr IV Q8H [facility] Last Admin: 11/20/16 03:12 Dose: 200 mls/hr Sodium Chloride (Normal Saline) 500 mls @ 999 mls/hr IV .BOLUS ONE Stop: 11/20/16 13:13 Last Admin: 11/20/16 14:39 Dose: 999 mls/hr Iopamidol (Isovue-370 (76%)) 100 ml IVPUSH ONETIME ONE Stop: 11/20/16 14:02 Last Admin: 11/20/16 14:20 Dose: 100 ml Methylprednisolone Sodium Succinate (Solu-Medrol) 125 mg IVPUSH Q8H [facility] Last Admin: 11/18/16 08:21 Dose: 125 mg Methylprednisolone Sodium Succinate (Solu-Medrol) 80 mg IVPUSH BID [facility] Stop: 11/18/16 23:00 Last Admin: 11/18/16 21:31 Dose: 80 mg Methylprednisolone Sodium Succinate (Solu-Medrol) 40 mg IVPUSH DAILY [facility] Last Admin: 11/19/16 11:32 Dose: 40 mg Propylene Glycol/Peg 400 [Systane 0.3-0. 4% Eye Drops] Pt Own Med 1 drop EYEBOTH BID [facility] Last Admin: 11/18/16 08:22 Dose: 1 drop Potassium Chloride (Potassium Chloride) 40 meq PO ONETIME ONE Stop: 11/18/16 09:43 Last Admin: 11/18/16 10:02 Dose: 40 meq Saccharomyces Boulardii (Florastor) 500 mg PO BID [facility] Last Admin: 11/18/16 21:33 Dose: Not Given Sodium Chloride (Saline Flush) 10 ml FLUSH ASDIRECTED PRN PRN Reason: Keep Vein Open Last Admin: 11/16/16 11:34 Dose: 10 ml Vancomycin HCl (Pharmacy To Dose - Vancomycin) 0 dose .XX ASDIRECTED PRN PRN Reason: RX TO DOSE VANCOMYCIN - Exam Quality Assessment: Reports: DVT Prophylaxis General: Reports: Alert, Oriented, Cooperative, No Acute Distress HEENT: Reports: Pupils Equal, Pupils Reactive, EOMI, Mucous Membr. Moist/Beach Neck: Reports: Supple Lungs: Reports: Clear to Auscultation, Normal Respiratory Effort Cardiovascular: Reports: Regular Rate, Regular Rhythm, No Murmurs GI/Abdominal Exam: Normal Bowel Sounds, Soft, Tender (minimal LLQ tenderness) (Female) Exam: Deferred Rectal (Female) Exam: Deferred Back Exam: Reports: Normal Inspection Extremities: No Pedal Edema, Normal Capillary Refill Neurological: Reports: No New Focal Deficit Psy/Mental Status: Reports: Alert, Normal Affect, Normal Mood *Q Meaningful Use (DIS) - VTE *Q VTE Criteria *Q: - Stroke *Q Stroke Criteria *Q: - AMI *Q AMI Criteria *Q: <Kala Davis - Last Filed: 11/22/16 14:12> Discharge Summary - Hospital Course Free Text/Narrative:: Decision for VICKIE per ID or Cardiology, see above for recommendations. NOTA BENE THE CHOICE OF LEVOQUIN WAS BASED ON SENSITIVTY; SEE LAB REPORT! - Discharge Diagnosis/Problem(s) (1) Pyelonephritis SNOMED Code(s): 86290640 ICD Code: N12 - TUBULO-INTERSTITIAL NEPHRITIS, NOT SPCF ACUTE OR CHRONIC Status: Acute (2) Acute renal insufficiency SNOMED Code(s): 333345935 ICD Code: N28.9 - DISORDER OF KIDNEY AND URETER, UNSPECIFIED Status: Acute (3) Elevated WBC count SNOMED Code(s): 830561434, 271401082 ICD Code: D72.829 - ELEVATED WHITE BLOOD CELL COUNT, UNSPECIFIED Status: Acute (4) Bacteremia SNOMED Code(s): 8885443 ICD Code: R78.81 - BACTEREMIA Status: Acute Priority: High (5) Hyperlipidemia SNOMED Code(s): 33180344 ICD Code: E78.5 - HYPERLIPIDEMIA, UNSPECIFIED Status: Acute (6) Diabetes mellitus SNOMED Code(s): 21593628 ICD Code: E11.9 - TYPE 2 DIABETES MELLITUS WITHOUT COMPLICATIONS Status: Chronic Priority: Medium Qualifiers: Diabetes mellitus type: type 2 Diabetes mellitus complication status: with hyperglycemia Diabetes mellitus gang leader insulin use: without gang leader use Qualified Code(s): E11.65 - Type 2 diabetes mellitus with hyperglycemia - Patient Summary/Data Consults: Consultations 11/19/16 08:00 Consult to Case Management [CONS] Routine 11/19/16 13:32 Consult to Diabetic Nurse Specialist [CONS] Routine OT Evaluation and Treatment [CONS] Routine PT Evaluation and Treatment [CONS] Routine - Patient Data Vitals - Most Recent: Last Vital Signs Temp 36.8 C 11/21/16 09:00 Pulse 90 11/21/16 09:00 Resp 18 11/21/16 09:00 BP 117/65 11/21/16 09:00 Pulse Ox 93 L 11/21/16 09:00 RAEANN Results - Last 24 hrs: Microbiology 11/19/16 13:42 Aerobic Blood Culture - Preliminary Blood - Venous - Lab Draw NO GROWTH AFTER 3 DAYS Anaerobic Blood Culture - Preliminary NO GROWTH AFTER 3 DAYS 11/19/16 13:50 Aerobic Blood Culture - Preliminary Blood - Venous NO GROWTH AFTER 3 DAYS Anaerobic Blood Culture - Preliminary NO GROWTH AFTER 3 DAYS Med Orders - Current: Current Medications Discontinued Medications Alprazolam (Xanax) 0.25 mg PO DAILY PRN PRN Reason: Anxiety Alprazolam (Xanax) 0.25 mg PO DAILY PRN PRN Reason: Anxiety Amitriptyline HCl (Elavil) 50 mg PO BEDTIME [facility] Last Admin: 11/20/16 20:39 Dose: 50 mg Aspirin (Halfprin) 81 mg PO DAILY [facility] Last Admin: 11/21/16 08:17 Dose: 81 mg Calcium Carbonate (Calcium Carbonate/Vitamin D 1500 Mg-200 Unit) 1 tab PO BID [facility] Last Admin: 11/21/16 08:16 Dose: 1 tab Calcium Polycarbophil (Fibercon) 625 mg PO DAILY [facility] Last Admin: 11/21/16 08:16 Dose: 625 mg Dextrose/Water (Dextrose 50% In Water) 50 ml IVPUSH ASDIRECTED PRN PRN Reason: Hypoglycemia Diphtheria/Tetanus/Acell Pertussis (Adacel) 0.5 ml IM .ONCE ONE Stop: 11/19/16 09:49 Last Admin: 11/21/16 10:55 Dose: 0.5 ml Enoxaparin Sodium (Lovenox) 40 mg SUBCUT DAILY [facility] Last Admin: 11/21/16 08:33 Dose: 40 mg Levofloxacin/Dextrose 750 mg/ (Premix) 150 mls @ 100 mls/hr IV ONETIME ONE Stop: 11/16/16 13:44 Last Admin: 11/16/16 12:22 Dose: 100 mls/hr Sodium Chloride (Normal Saline) 500 mls @ 999 mls/hr IV .BOLUS ONE Stop: 11/16/16 13:39 Last Admin: 11/16/16 13:26 Dose: 999 mls/hr Levofloxacin/Dextrose 750 mg/ (Premix) 150 mls @ 100 mls/hr IV Q48H [facility] Vancomycin HCl 1 gm/ Sodium (Chloride) 250 mls @ 250 mls/hr IV ONETIME ONE Stop: 11/16/16 16:59 Last Admin: 11/16/16 17:44 Dose: 250 mls/hr Sodium Chloride (Sodium Chloride 0.45%) 1,000 mls @ 125 mls/hr IV ASDIRECTED [facility] Last Admin: 11/18/16 04:13 Dose: 125 mls/hr Vancomycin HCl 1 gm/ Sodium (Chloride) 250 mls @ 250 mls/hr IV Q24H [facility] Last Admin: 11/17/16 17:16 Dose: 250 mls/hr Meropenem 1 gm/ Sodium (Chloride) 100 mls @ 200 mls/hr IV Q8H [facility] Last Admin: 11/19/16 04:57 Dose: 200 mls/hr Vancomycin HCl 1 gm/ Sodium (Chloride) 250 mls @ 250 mls/hr IV Q12H [facility] Levofloxacin/Dextrose 750 mg/ (Premix) 150 mls @ 100 mls/hr IV Q24H [facility] Last Admin: 11/21/16 08:15 Dose: 100 mls/hr Sodium Chloride (Sodium Chloride 0.45%) 1,000 mls @ 70 mls/hr IV ASDIRECTED [facility] Stop: 11/18/16 20:00 Last Admin: 11/18/16 13:58 Dose: 70 mls/hr Meropenem 500 mg/ Sodium (Chloride) 100 mls @ 200 mls/hr IV Q8H [facility] Last Admin: 11/20/16 03:12 Dose: 200 mls/hr Sodium Chloride (Normal Saline) 500 mls @ 999 mls/hr IV .BOLUS ONE Stop: 11/20/16 13:13 Last Admin: 11/20/16 14:39 Dose: 999 mls/hr Insulin Aspart (Novolog) 0 unit SUBCUT QIDACANDBED [facility] PRN Reason: Protocol Last Admin: 11/21/16 06:40 Dose: Not Given Iopamidol (Isovue-370 (76%)) 100 ml IVPUSH ONETIME ONE Stop: 11/20/16 14:02 Last Admin: 11/20/16 14:20 Dose: 100 ml Labetalol HCl (Normodyne) 100 mg PO BID [facility] Last Admin: 11/21/16 08:33 Dose: 100 mg Levothyroxine Sodium (Synthroid) 88 mcg PO DAILY [facility] Last Admin: 11/21/16 08:17 Dose: 88 mcg Methylprednisolone Sodium Succinate (Solu-Medrol) 125 mg IVPUSH Q8H [facility] Last Admin: 11/18/16 08:21 Dose: 125 mg Methylprednisolone Sodium Succinate (Solu-Medrol) 80 mg IVPUSH BID [facility] Stop: 11/18/16 23:00 Last Admin: 11/18/16 21:31 Dose: 80 mg Methylprednisolone Sodium Succinate (Solu-Medrol) 40 mg IVPUSH DAILY [facility] Last Admin: 11/19/16 11:32 Dose: 40 mg (Cyclosporine 1 Drop ) RestasisPt Own Med 0 drop EYEBOTH BID [facility] Last Admin: 11/21/16 08:39 Dose: 1 drop Propylene Glycol/Peg 400 [Systane 0.3-0. 4% Eye Drops] Pt Own Med 1 drop EYEBOTH BID [facility] Last Admin: 11/18/16 08:22 Dose: 1 drop Pantoprazole Sodium (Protonix) 40 mg PO DAILY [facility] Last Admin: 11/21/16 08:17 Dose: 40 mg Systane 0.3-0.4% Eye (DropsPt Own Med) 0 each EYEBOTH BID [facility] Last Admin: 11/21/16 08:36 Dose: 1 each Potassium Chloride (Potassium Chloride) 40 meq PO ONETIME ONE Stop: 11/18/16 09:43 Last Admin: 11/18/16 10:02 Dose: 40 meq Prednisolone Acetate (Pred Forte 1% Ophth Susp) 0 ml EYEBOTH DAILY [facility] Last Admin: 11/21/16 08:36 Dose: 1 drop Prednisone (Prednisone) 20 mg PO WITHBREAKFAST [facility] Stop: 11/24/16 07:01 Last Admin: 11/21/16 06:46 Dose: 20 mg Prednisone (Prednisone) 10 mg PO DAILY [facility] Stop: 11/29/16 09:01 Saccharomyces Boulardii (Florastor) 500 mg PO BID [facility] Last Admin: 11/18/16 21:33 Dose: Not Given Saccharomyces Boulardii (Florastor) 250 mg PO BID [facility] Last Admin: 11/21/16 08:39 Dose: 250 mg Sodium Chloride (Saline Flush) 10 ml FLUSH ASDIRECTED PRN PRN Reason: Keep Vein Open Last Admin: 11/16/16 11:34 Dose: 10 ml Sodium Chloride (Saline Flush) 10 ml FLUSH ONETIME PRN PRN Reason: IV FLUSH Last Admin: 11/20/16 14:20 Dose: 10 ml Vancomycin HCl (Pharmacy To Dose - Vancomycin) 0 dose .XX ASDIRECTED PRN PRN Reason: RX TO DOSE VANCOMYCIN *Q Meaningful Use (DIS) - VTE *Q VTE Criteria *Q: - Stroke *Q Stroke Criteria *Q: - AMI *Q AMI Criteria *Q:
[2016-11-21] MEDS: Levofloxacin/Dextrose 5%-Water 750 MG in Premix Bag 1 BAG IV SCH (08:15)
[2016-11-21] MEDS: Calcium Carbonate/Vitamin D3 1500 MG-200 Units Tab PO SCH (08:16)
[2016-11-21] MEDS: Calcium Polycarbophil 625 MG Tab PO SCH (08:16)
[2016-11-21] MEDS: Aspirin 81 MG Tab.EC PO SCH (08:17)
[2016-11-21] MEDS: Levothyroxine 88 MCG Tab PO SCH (08:17)
[2016-11-21] MEDS: Pantoprazole 40 MG Tab.CR PO SCH (08:17)
[2016-11-21] MEDS: Enoxaparin 40 MG/0.4 ML Syringe SUBCUT SCH (08:33)
[2016-11-21] MEDS: Labetalol 100 MG Tab PO SCH (08:33)
[2016-11-21] MEDS: prednisoLONE Acetate 1% Ophth Susp 5 ML Bottle EYEBOTH SCH (08:36)
[2016-11-21] MEDS: SYSTANE EYEBOTH SCH (08:36)
[2016-11-21] MEDS: EYE EYEBOTH SCH (08:36)
[2016-11-21 08:37] VITALS: BP 117/65
[2016-11-21] MEDS: [UNRECOGNIZED DRUG - OTHER] EYEBOTH SCH (08:39)
[2016-11-21] MEDS: Saccharomyces Boulardii (Probiotic) 250 MG Cap PO SCH (08:39)
[2016-11-25] MEDS ORDERED: predniSONE 10 MG Tab PO SCH (09:00)
== END 2016-11-21 11:00 | disposition home or self-care (01) | DRG 872 ==
LOC: JD.ED 11:02 → JD.MS 13:44 → UNDOADMIN 13:44 → JD.MS 14:19
PROVIDERS: ADMIT Internal Medicine Cardiovascular Disease; ATTEND Internal Medicine Cardiovascular Disease
PROC: 02HV33Z Insertion of Infusion Device into Superior Vena Cava, Percutaneous Approach (ICD-10-PCS; principal; 2016-11-19)
DX: A41.9 Sepsis, unspecified organism (principal); A41.01 Sepsis due to Methicillin susceptible Staphylococcus aureus; E78.00 Pure hypercholesterolemia, unspecified; R78.81 Bacteremia; N10 Acute pyelonephritis; E03.9 Hypothyroidism, unspecified; Z86.73 Personal history of transient ischemic attack (TIA), and cerebral infarction without residual deficits; D47.3 Essential (hemorrhagic) thrombocythemia; R10.32 Left lower quadrant pain; I10 Essential (primary) hypertension; E78.5 Hyperlipidemia, unspecified; E11.9 Type 2 diabetes mellitus without complications; Z79.84 Long term (current) use of oral hypoglycemic drugs; M35.3 Polymyalgia rheumatica; N28.9 Disorder of kidney and ureter, unspecified; R42 Dizziness and giddiness; R53.83 Other fatigue; Z79.82 Long term (current) use of aspirin; Z79.899 Other long term (current) drug therapy
CPT/HCPCS: 36415; 71010; 80053; 83605; 85025; 86140; 87040; 96365; 96366; 99285; J1956; J7040; J7050; 36569; 72170; 72170-26; 74177; 74177-26; 80048; 82962; 83036; 83735; 90715; 97110-GP; 97161-GP; 97165-GO; 99284; A9270-GY; C1751; J1650; J1815-GY; J2185; J2920; J2930; J3370; J7030; Q9967

== ENCOUNTER 2017-01-07 16:09 | Inpatient (IN) | payer MEDICARE, BC ==
[2017-01-07] MEDS ORDERED: Sodium Chloride 0.9% 10 ML Syringe FLUSH PRN (16:55)
--- NOTE | 2017-01-07 17:08 | EDM.PDOC ---
ED HPI GENERAL MEDICAL PROBLEM - General Chief Complaint: Genitourinary Problem Stated Complaint: POSS BLOOD INFECTION Time Seen by Provider: 01/07/17 16:53 Source of Information: Reports: Patient History Limitations: Reports: No Limitations - History of Present Illness INITIAL COMMENTS - FREE TEXT/NARRATIVE: Patient is 68-year-old female who presents to the ED complaining of feeling flushed, hematuria, dysuria, increased frequency, and decrease amount. Patient states approx 2 weeks ago she completed a 4 week course of Ancef 3 times a day via PICC line. Patient was admitted here in [place] 11/20/2016 for positive urine and blood cultures. Cultures grew out Escherichia coli and MSSA. Patient was discharged home November 21, 2016. Since completion of IV antibiotics patient has been doing quite well up until today. She has been drinking plenty of fluids and monitoring blood sugars closely. Currently denies any fever, nausea/ vomiting, chest pain, shortness of breath, dizziness, abdominal pain, lightheadedness, diarrhea, or any additional complaints. Patient has chronic back discomfort requiring surgery and states unclear if she has CVA tenderness or not. She is concerned about developing bacteremia and thus is here to have aggressive treatment if infection present. Of note October 26, 2016 was admitted to [facility] for septicemia requiring a 5 day hospitalization and 10 day course of oral antibiotics post discharge. 10 days later patient developed dysuria and was evaluated in the ED diagnosed with a UTI sent home on oral antibiotic. The following day she was notified that her blood cultures were positive and thus returned to the ED and admitted for IV antibiotics. She was admitted to [facility]Sur unit. Start on IV antibiotics merrem and Levaquin based on UA/UC culture and sensitivity. Cultures grew out Escherichia coli and MSSA. She did very well and was discharged home November 21, 2016. Evaluated by I&D 11/23/2016. - Related Data Allergies Allergy/AdvReac Type Severity Reaction Status Date / Time No Known Allergies Allergy Verified 01/07/17 16:41 Home Meds: Home Meds ALPRAZolam [Xanax] 0.25 mg PO DAILY PRN 07/03/14 [History] Amitriptyline [Elavil] 50 mg PO BEDTIME 07/03/14 [History] Calcium Carbonate/Vitamin D3 [Calcium 600 + Vit D 400] 1 tab PO BID 07/03/14 [ History] Levothyroxine [Synthroid] 88 mcg PO DAILY 07/03/14 [History] Aspirin 81 mg PO DAILY 01/31/15 [History] Labetalol [Normodyne] 100 mg PO BID 01/31/15 [History] cycloSPORINE [Restasis] 1 drop EYEBOTH BID 01/31/15 [History] prednisoLONE Acetate [Pred Forte 1% Ophth Susp] 1 drop EYEBOTH DAILY 03/14/16 [ History] Methylcellulose [Fiber] 1 tab PO DAILY 10/27/16 [History] Omeprazole 20 mg PO DAILY 10/27/16 [History] Propylene Glycol/Peg 400 [Systane 0.3-0.4% Eye Drops] 1 drop EYEBOTH BID [History] Losartan [Cozaar] 25 mg PO DAILY 11/16/16 [History] Past Medical History HEENT History: Reports: Impaired Vision Cardiovascular History: Reports: High Cholesterol, Hypertension 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: Reports: GERD 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: Musculoskeletal History: Reports: Arthritis Neurological History: Reports: TIA Endocrine/Metabolic History: Reports: Diabetes, Type II, Hypothyroidism - Past Surgical History HEENT Surgical History: Reports: Cataract Surgery, Other (See Below) Other HEENT Surgeries/Procedures: cornea transplants Social & Family History - Family History Cardiac: Reports: [place] - Tobacco Use Smoking Status *Q: Never Smoker Second Hand Smoke Exposure: No - Caffeine Use Caffeine Use: Reports: None - Alcohol Use Days Per Week of Alcohol Use: 0 - Recreational Drug Use Recreational Drug Use: No - Living Situation & Occupation Living situation: Reports: , Alone Occupation: Retired ED ROS GENERAL - Review of Systems Review Of Systems: See Below Constitutional: Denies: Fever, Chills, Malaise, Weakness, Decreased Appetite Respiratory: Reports: No Symptoms Cardiovascular: Reports: No Symptoms GI/Abdominal: Denies: Abdominal Pain, Diarrhea, Nausea, Vomiting : Reports: Dysuria, Frequency, Hematuria, Urgency, Urinary Retention. Denies : Discharge, Flank Pain Musculoskeletal: Denies: Back Pain Neurological: Denies: Dizziness, Headache ED EXAM, RENAL/ - Physical Exam Exam: See Below Exam Limited By: No Limitations General Appearance: Alert, WD/WN, No Apparent Distress Ears: Hearing Grossly Normal Nose: Normal Inspection Throat/Mouth: Normal Voice, No Airway Compromise Neck: Normal Inspection, Supple, Non-Tender, Full Range of Motion. No: Lymphadenopathy (L), Lymphadenopathy (R) Respiratory/Chest: No Respiratory Distress, Lungs Clear, Normal Breath Sounds, No Accessory Muscle Use, Chest Non-Tender Cardiovascular: Normal Peripheral Pulses, Regular Rate, Rhythm GI/Abdominal: Normal Bowel Sounds, Soft, Non-Tender, No Organomegaly, No Distention Neurological: Alert, Oriented, CN II-XII Intact, Normal Cognition, No Motor/ Sensory Deficits Psychiatric: Normal Affect, Normal Mood Skin Exam: Warm, Dry, Intact, Normal Color Course - Vital Signs Last Recorded V/S: Last Vital Signs Temp 97.9 F 01/07/17 16:39 Pulse 90 01/07/17 19:13 Resp 18 01/07/17 19:13 BP 162/63 H 01/07/17 19:13 Pulse Ox 98 01/07/17 19:13 - Orders/Labs/Meds Orders: Active Orders 24 hr Category Date Time Status Peripheral IV Care [RC] . DIRECTED Care 01/07/17 16:55 Active Abdomen Pelvis w Cont [CT] Stat Exams 01/07/17 20:31 Ordered CULTURE BLOOD [BC] Stat Lab 01/07/17 17:25 Received CULTURE BLOOD [BC] Stat Lab 01/07/17 17:30 Received CULTURE URINE [RM] Stat Lab 01/07/17 17:15 Received Levofloxacin/Dextrose 5%-Water [Levaquin in D5W 750 MG/ Med 01/07/17 21:09 Ordered 150 ML] 750 mg Premix Bag 1 bag IV ONETIME Sodium Chloride 0.9% [Normal Saline] 1,000 ml Med 01/07/17 17:15 Active IV ASDIRECTED Sodium Chloride 0.9% [Saline Flush] Med 01/07/17 16:55 Active 10 ml FLUSH ASDIRECTED PRN Vancomycin 1 gm Med 01/07/17 21:09 Ordered Sodium Chloride 0.9% [Normal Saline] 250 ml IV ONETIME Blood Culture x2 Reflex Set [OM.PC] Stat Oth 01/07/17 17:05 Ordered Peripheral IV Insertion Adult [OM.PC] Stat Oth 01/07/17 16:55 Ordered Medication Orders Sodium Chloride (Normal Saline) 1,000 mls @ 125 mls/hr IV ASDIRECTED [facility] Last Admin: 01/07/17 17:34 Dose: 125 mls/hr Levofloxacin/Dextrose 750 mg/ (Premix) 150 mls @ 100 mls/hr IV ONETIME ONE Stop: 01/07/17 22:38 Vancomycin HCl 1 gm/ Sodium (Chloride) 250 mls @ 250 mls/hr IV ONETIME ONE Stop: 01/07/17 22:08 Last Admin: 01/07/17 21:22 Dose: 250 mls/hr Sodium Chloride (Saline Flush) 10 ml FLUSH ASDIRECTED PRN PRN Reason: Keep Vein Open Last Admin: 01/07/17 17:34 Dose: 10 ml Labs: Laboratory Tests 01/07/17 01/07/17 01/07/17 Range/Units 17:10 17:10 17:15 WBC 11.46 H (3.98-10.04) K/mm3 RBC 4.44 (3.98-5.22) M/mm3 Hgb 10.9 L (11.2-15.7) gm/L Hct 35.7 (34.1-44.9) % MCV 80.4 (79.4-94.8) fl MCH 24.5 L (25.6-32.2) pg MCHC 30.5 L (32.2-35.5) g/dl RDW Std Deviation 45.7 (36.4-46.3) fL Plt Count 480 H (182-369) K/mm3 MPV 9.1 L (9.4-12.3) fl Neut % (Auto) 62.4 (34.0-71.1) % Lymph % (Auto) 27.3 (19.3-51.7) % [place] % (Auto) 7.4 (4.7-12.5) % Eos % (Auto) 2.4 (0.7-5.8) Baso % (Auto) 0.3 (0.1-1.2) % Neut # (Auto) 7.15 H (1.56-6.13) K/mm3 Lymph # (Auto) 3.13 (1.18-3.74) K/mm3 [place] # (Auto) 0.85 H (0.24-0.36) K/mm3 Eos # (Auto) 0.27 (0.04-0.36) K/mm3 Baso # (Auto) 0.04 (0.01-0.08) K/mm3 Sodium 141 (136-145) mEq/L Potassium 3.9 (3.5-5.1) mEq/L Chloride 104 (98-107) mEq/L Carbon Dioxide 25 (21-32) mEq/L Anion Gap 15.9 H (5-15) BUN 23 H (7-18) mg/dL Creatinine 0.8 (0.55-1.02) mg/dL Est Cr Clr Drug Dosing 52.15 mL/min Estimated GFR (MDRD) > 60 (>60) mL/min BUN/Creatinine Ratio 28.8 H (14-18) Glucose 111 (83-115) mg/dL Calcium 9.7 (8.5-10.1) mg/dL Total Bilirubin 0.2 (0.2-1.0) mg/dL AST 15 (15-37) U/L ALT 16 (14-59) U/L Alkaline Phosphatase 252 H (46-116) U/L C-Reactive Protein 2.1 H* (<1.0) mg/dL Total Protein 7.9 (6.4-8.2) g/dl Albumin 3.5 (3.4-5.0) g/dl Globulin 4.4 gm/dL Albumin/Globulin Ratio 0.8 L (1-2) Urine Color [place] H (Yellow) Urine Appearance Slt cloudy H (Clear) Urine pH 6.0 (5.0-8.0) Ur Specific [place] 1.010 (1.005-1.030) Urine Protein 1+ H (Negative) Urine Glucose (UA) 1+ H (Negative) Urine Ketones Negative (Negative) Urine Occult Blood 3+ H (Negative) Urine Nitrite Negative (Negative) Urine Bilirubin Negative (Negative) Urine Urobilinogen 0.2 (0.2-1.0) Ur Leukocyte Esterase 2+ H (Negative) Urine RBC 50-75 H (0-5) /hpf Urine WBC 30-40 H (0-5) /hpf Urine WBC Clumps Occasional (NOT SEEN) /hpf Ur Epithelial Cells 0-5 (0-5) /hpf Urine Bacteria Moderate H (FEW) /hpf Urine Mucus Not seen (FEW) /hpf Meds: Medications Generic Name Dose Route Start Last Admin Trade Name Freq PRN Reason Stop Dose Admin Sodium Chloride 1,000 mls @ 125 mls/hr 01/07/17 17:15 01/07/17 17:34 Normal Saline IV 125 mls/hr ASDIRECTED MOISES Administration Levofloxacin/Dextrose 750 mg/ 150 mls @ 100 mls/hr 01/07/17 21:09 Premix IV 01/07/17 22:38 ONETIME ONE Vancomycin HCl 1 gm/ Sodium 250 mls @ 250 mls/hr 01/07/17 21:09 01/07/17 21: 22 Chloride IV 01/07/17 22:08 250 mls/hr ONETIME ONE Administration Sodium Chloride 10 ml 01/07/17 16:55 01/07/17 17:34 Saline Flush FLUSH 10 ml ASDIRECTED PRN Administration Keep Vein Open Discontinued Medications Generic Name Dose Route Start Last Admin Trade Name Freq PRN Reason Stop Dose Admin Iopamidol 125 ml 01/07/17 21:10 01/07/17 21:27 Isovue-300 (61%) IVPUSH 01/07/17 21:11 125 ml ONETIME ONE Administration - Re-Assessments/Exams Free Text/Narrative Re-Assessment/Exam: Peripheral IV will be started with normal saline 125 mL per hour. Initial labs and studies include: CBC, chem 14, CRP, blood cultures 2, UA plus urine culture. Labs reviewed:White blood count 11.46, hemoglobin 10.9, platelet count 480, total neutrophilia, sodium 141, potassium 3.9, AG 15.9, creatinine 0.8, glucose 111, alk phosphatase 252, and CRP 2.1. UA: appearance cloudy, protein one plus, glucose 1+, occult blood 3+, leukocyte esterase 2+, urine rbc's 50-75, urine wbc's 30-40, bacteria moderate. 01/07/17 20:[address] 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 He will happily admit the patient for recurrent urinary tract infection. Requested CT the abdomen and pelvis be obtained. Patient has chronic back pain thus cannot give a definitive yes or no for CVA tenderness. Patient was recently discharged from [facility] November 21, 2016 for acute pyelonephritis. Patient received IV antibiotics for 4 weeks on outpatient basis. She has been followed by infectious disease. Unclear why patient's having recurrent urinary tract infections. Patient is quite concerned about experiencing another bout of bacteremia. I did inform the patient if admitted to [place] that she may require transferring to [place] for further treatment if she does not improve. Patient is aware of that and understands it may be difficult to arrange transfer. She may require Infectious Disease Consultation. Patient states she does have appointment with Dr. Mcguire with infectious disease 23 of January. Patient request being admitted to the hospital here in [place]. I have ordered CT of the abdomen and pelvis with IV contrast only. 210 MCG was completed patient meets inpatient admission. Awaiting for CT to be completed. Discussed with what IV antibiotic he prefers to start. Request levaquin 750 and vancomycin 1 gram. Departure - Departure Time of Disposition: 21:44 Disposition: Admitted As Inpatient 64 Clinical Impression: UTI, Urinary tract infectious disease - Discharge Information Referrals: Phu Leavitt MD [Primary Care Provider] - Forms: ED Department Discharge - My Orders Last 24 Hours: My Active Orders 01/07/17 16:55 Peripheral IV Care [RC] . DIRECTED Sodium Chloride 0.9% [Saline Flush] 10 ml FLUSH ASDIRECTED PRN Peripheral IV Insertion Adult [OM.PC] Stat 01/07/17 17:05 Blood Culture x2 Reflex Set [OM.PC] Stat 01/07/17 17:15 CULTURE URINE [RM] Stat Sodium Chloride 0.9% [Normal Saline] 1,000 ml IV ASDIRECTED 01/07/17 17:25 CULTURE BLOOD [BC] Stat 01/07/17 17:30 CULTURE BLOOD [BC] Stat 01/07/17 20:31 Abdomen Pelvis w Cont [CT] Stat 01/07/17 21:09 Levofloxacin/Dextrose 5%-Water [Levaquin in D5W 750 MG/150 ML] 750 mg Premix Bag 1 bag IV ONETIME Vancomycin 1 gm Sodium Chloride 0.9% [Normal Saline] 250 ml IV ONETIME - Assessment/Plan Last 24 Hours: My Active Orders 01/07/17 16:55 Peripheral IV Care [RC] . DIRECTED Sodium Chloride 0.9% [Saline Flush] 10 ml FLUSH ASDIRECTED PRN Peripheral IV Insertion Adult [OM.PC] Stat 01/07/17 17:05 Blood Culture x2 Reflex Set [OM.PC] Stat 01/07/17 17:15 CULTURE URINE [RM] Stat Sodium Chloride 0.9% [Normal Saline] 1,000 ml IV ASDIRECTED 01/07/17 17:25 CULTURE BLOOD [BC] Stat 01/07/17 17:30 CULTURE BLOOD [BC] Stat 01/07/17 20:31 Abdomen Pelvis w Cont [CT] Stat 01/07/17 21:09 Levofloxacin/Dextrose 5%-Water [Levaquin in D5W 750 MG/150 ML] 750 mg Premix Bag 1 bag IV ONETIME Vancomycin 1 gm Sodium Chloride 0.9% [Normal Saline] 250 ml IV ONETIME
[2017-01-07] MEDS: Sodium Chloride 0.9% 1,000 ML IV SCH (17:34)
[2017-01-07] MEDS ORDERED: Levofloxacin/Dextrose 5%-Water 750 MG in Premix Bag 1 BAG IV ONE (21:09)
[2017-01-07] MEDS ORDERED: Iopamidol 612 MG/ML 150 ML Bottle IVPUSH ONE (21:10)
--- NOTE | 2017-01-07 21:55 | PCM.HP ---
H&P History of Present Illness - General Date of Service: 01/07/17 Admit Problem/Dx: Admission Diagnosis/Problem Admission Diagnosis/Problem UTI, Urinary tract infectious disease Source of Information: Patient, Old Records, Provider, RN Notes Reviewed History Limitations: Reports: No Limitations - History of Present Illness Initial Comments - Free Text/Narative: This is a 76-year-old elderly white female with past medical history of impaired vision, hypertension, hyperlipidemia, type 2 diabetes, hypothyroidism, GERD, or short arthritis, TIA, and chronic back pain who presents to the emergency department with complains of genitourinary symptoms such as hematuria , increased frequency, urinary retention and dysuria. Patient carries a history of recurrent UTIs. She was recently hospitalized about a month ago for urinary tract infection and bacteremia. She just completed her intravenous antibiotic for bacteremia. Per patient, she is being followed by Dr. Oconnor (ID) in [facility]. She denies any signs of systemic infection. Patient has been evaluated for genitourinary symptoms about a year ago by Dr. Vazquez with benign findings. She has not seen him in over a year. Patient is here today for concerns of developing bacteremia related to UTI. A review of her e-medical records show that patient was admitted in October in [facility] for septicemia and completed a 10 day course of antibiotic after discharge. 10 days after that, the patient developed dysuria and was diagnosed with urinary tract infection. Her initial workup in emergency department shows a CBC remarkable for WBC of 11.46, hemoglobin of 10.9, MCH of 24.5, MCHC of 30.5, platelet of 480, neutrophils counts of 7.15 and monocyte counts of 0.85. Her chemistry is remarkable for anion gap of 15.9, BUN of 23, alkaline phosphatase of 252, CRP of 2.1. Her UA is highly suggestive of urinary tract infection. Abdominal pelvic CT scan showed no acute pyelonephritis. Patient received initial treatment before she was sent to the floor for further management. She is being admitted for acute on chronic UTI. She is full code. Lower Back Pain Score (Numeric/FACES): 4 - Related Data Allergies/Adverse Reactions: Allergies Allergy/AdvReac Type Severity Reaction Status Date / Time No Known Allergies Allergy Verified 01/07/17 22:05 Home Medications: Home Meds ALPRAZolam [Xanax] 0.25 mg PO DAILY PRN 07/03/14 [History] Amitriptyline [Elavil] 50 mg PO BEDTIME 07/03/14 [History] Calcium Carbonate/Vitamin D3 [Calcium 600 + Vit D 400] 1 tab PO BID 07/03/14 [ History] Levothyroxine [Synthroid] 88 mcg PO DAILY 07/03/14 [History] Aspirin 81 mg PO DAILY 01/31/15 [History] Labetalol [Normodyne] 100 mg PO BID 01/31/15 [History] cycloSPORINE [Restasis] 1 drop EYEBOTH BID 01/31/15 [History] prednisoLONE Acetate [Pred Forte 1% Ophth Susp] 1 drop EYEBOTH DAILY 03/14/16 [ History] Methylcellulose [Fiber] 1 tab PO DAILY 10/27/16 [History] Omeprazole 20 mg PO DAILY 10/27/16 [History] Propylene Glycol/Peg 400 [Systane 0.3-0.4% Eye Drops] 1 drop EYEBOTH BID [History] Losartan [Cozaar] 25 mg PO DAILY 11/16/16 [History] Canagliflozin/Metformin HCl [Invokamet 50-500 mg Tablet] 1 each PO BID 01/07/17 [History] Ferrous Gluconate [Iron] 240 mg PO DAILY 01/07/17 [History] Hydrocodone/Acetaminophen [[place] 5-325] 1 - 2 tab PO Q4H PRN 01/08/17 [History] Past Medical History HEENT History: Reports: Impaired Vision Cardiovascular History: Reports: High Cholesterol, Hypertension 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: Reports: GERD 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: Musculoskeletal History: Reports: Arthritis Neurological History: Reports: TIA Endocrine/Metabolic History: Reports: Diabetes, Type II, Hypothyroidism - Past Surgical History HEENT Surgical History: Reports: Cataract Surgery, Other (See Below) Other HEENT Surgeries/Procedures: cornea transplants Social & Family History - Family History Cardiac: Reports: [place] - Tobacco Use Smoking Status *Q: Never Smoker Second Hand Smoke Exposure: No - Caffeine Use Caffeine Use: Reports: None - Alcohol Use Days Per Week of Alcohol Use: 0 - Recreational Drug Use Recreational Drug Use: No - Living Situation & Occupation Living situation: Reports: , Alone Occupation: Retired H&P Review of Systems - Review of Systems: Review Of Systems: See Below General: Denies: Fever, Chills, Malaise, Weakness, Fatigue HEENT: Reports: No Symptoms Pulmonary: Denies: Shortness of Breath Cardiovascular: Denies: Chest Pain, Palpitations, Dyspnea on Exertion, Lightheadedness Gastrointestinal: Denies: Abdominal Pain, Diarrhea, Nausea, Vomiting Genitourinary: Reports: Frequency, Urgency, Hematuria, Retention. Denies: Dysuria, Incontinence, Discharge, Abnormal Menses, Dysmenorrhea, Flank Pain Musculoskeletal: Reports: Back Pain Skin: Denies: Cyanosis, Pallor, Diaphoresis, Rash Psychiatric: Denies: Confusion, Depression, Anxiety, Agitation, Hallucinations, Suicidal Ideation Neurological: Denies: Confusion, Dizziness, Seizure, Difficulty Walking, Weakness, Gait Disturbance Hematologic/Lymphatic: Reports: No Symptoms Immunologic: Reports: No Symptoms Exam - Exam Exam: See Below - Vital Signs Vital Signs: Last Vital Signs Temp 36.6 C 01/07/17 16:39 Pulse 90 01/07/17 19:13 Resp 18 01/07/17 19:13 BP 162/63 H 01/07/17 19:13 Pulse Ox 98 01/07/17 19:13 Weight: 66.678 kg - Exam General: Alert, Oriented, Cooperative. No: Mild Distress HEENT: Conjunctiva Clear, EACs Clear, EOMI, Hearing Intact, Mucosa Moist & [place] , Normal Nasal Septum, Posterior Pharynx Clear, Pupils Equal, Pupils Reactive, TMs Clear Neck: Supple, Trachea Midline, +2 Carotid Pulse wo Bruit, Full Range of Motion. No: JVD Lungs: Clear to Auscultation, Normal Respiratory Effort Cardiovascular: Regular Rate, Regular Rhythm GI/Abdominal Exam: Normal Bowel Sounds, Soft, Non-Tender, No Organomegaly, No Distention, No Abnormal Bruit (Female) Exam: Deferred Rectal (Female) Exam: Deferred Back Exam: Normal Inspection, Decreased Range of Motion Extremities: Normal Inspection, Non-Tender, No Pedal Edema, Normal Capillary Refill, Other (varicose veins) Peripheral Pulses: 3+: Posterior Tibial (L), Posterior Tibial (R), Dorsalis Pedis (L), Dorsalis Pedis (R) Skin: Warm, Dry, Intact Neuro Extensive - Mental Status: Oriented x3, Normal Cognition, Memory Intact Neuro Extensive - Motor, Sensory, Reflexes: CN II-XII Intact, Normal Gait Psychiatric: Alert, Normal Affect, Normal Mood - Patient Data Result Diagrams: 01/08/17 06:15 01/08/17 06:15 *Q Meaningful Use (ADM) - VTE *Q VTE Criteria *Q: - Stroke *Q Stroke Criteria *Q: - AMI *Q AMI Criteria *Q: Problem List Initiated/Reviewed/Updated: Yes Orders Last 24hrs: Active Orders 24 hr Category Date Time Status Admission Status [Patient Status] [ADT] Routine ADT 01/07/17 21:44 Active Cardiac Monitoring [RC] . DIRECTED Care 01/07/17 21:44 Active Levofloxacin/Dextrose 5%-Water [Levaquin in D5W 750 MG/ Med 01/07/17 21:09 Active 150 ML] 750 mg Premix Bag 1 bag IV ONETIME Vancomycin 1 gm Med 01/07/17 21:09 Active Sodium Chloride 0.9% [Normal Saline] 250 ml IV ONETIME Medication Orders Sodium Chloride (Normal Saline) 1,000 mls @ 125 mls/hr IV ASDIRECTED [facility] Last Admin: 01/07/17 17:34 Dose: 125 mls/hr Levofloxacin/Dextrose 750 mg/ (Premix) 150 mls @ 100 mls/hr IV ONETIME ONE Stop: 01/07/17 22:38 Vancomycin HCl 1 gm/ Sodium (Chloride) 250 mls @ 250 mls/hr IV ONETIME ONE Stop: 01/07/17 22:08 Last Admin: 01/07/17 21:22 Dose: 250 mls/hr Sodium Chloride (Saline Flush) 10 ml FLUSH ASDIRECTED PRN PRN Reason: Keep Vein Open Last Admin: 01/07/17 17:34 Dose: 10 ml Assessment/Plan Comment:: Assessment/Plan: Acute: Acute UTI - Hx/o Recurrent UTI and Bacteremia - She needs urology eval with hematuria; she was seen by [facility] about a year ago - No hx/o renal stones or hemorrhagic cystatitis - She denies any hx/o malignancy - She has hx/o E. coli, MSSA , Klebsiella Penumoniae and Citrobacter Koseri - IV Vancomycin and Levaquin Hx/o Bacteremia - 2/2 Staph Aureus - Completed IV ATB Chronic: Impaired Vision HTN HLD GERD OA TIA DM2 Hypothyroidism Plan: Admit to Med-Surg Routine AM Labs Blood Cx x2 Resume home Meds SW/CM for d/c planning Additional orders as above Code status: 1
[2017-01-07] MEDS ORDERED: Albuterol/Ipratropium 3.0-0.5 MG/3 ML Neb Soln NEB PRN (22:21)
[2017-01-07] MEDS ORDERED: HYDROmorphone 0.5 MG/0.5 ML Syringe IVPUSH PRN (22:21)
[2017-01-07] MEDS ORDERED: Acetaminophen 325 MG Tab PO PRN (22:21)
[2017-01-07] MEDS ORDERED: Docusate Sodium 100 MG Cap PO PRN (22:21)
[2017-01-07] MEDS ORDERED: Bisacodyl 5 MG Tab PO PRN (22:21)
[2017-01-07] MEDS ORDERED: Temazepam 7.5 MG Cap PO PRN (22:21)
[2017-01-07] MEDS ORDERED: Polyethylene Glycol 3350 Powder 17 GM Packet PO PRN (22:21)
[2017-01-07] MEDS ORDERED: Promethazine 12.5 MG in Sodium Chloride 0.9% 50 ML IV PRN (22:21)
[2017-01-07] MEDS ORDERED: Ondansetron 4 MG/2 ML SDV IV PRN (22:21)
[2017-01-07] MEDS ORDERED: LORazepam 2 MG/ML MDV IV PRN (22:21)
[2017-01-07] MEDS ORDERED: ALPRAZolam 0.5 MG Tab PO PRN (22:26)
[2017-01-07] MEDS ORDERED: LORazepam 2 MG/ML MDV IVPUSH PRN (22:51)
[2017-01-07] MEDS ORDERED: Metoprolol Tartrate 5 MG/5 ML SDV IVPUSH PRN (22:51)
[2017-01-07] MEDS ORDERED: hydrALAZINE 20 MG/ML SDV IVPUSH PRN (22:51)
[2017-01-07] MEDS: Acetaminophen/HYDROcodone 325-5 MG Tab PO PRN (23:00)
[2017-01-08] MEDS: Sodium Chloride 0.9% 1,000 ML IV SCH ×3 (02:26→19:43)
[2017-01-08] MEDS: Pantoprazole 40 MG Tab.CR PO SCH (07:16)
[2017-01-08] MEDS: Levothyroxine 88 MCG Tab PO SCH (07:18)
[2017-01-08] MEDS: Levofloxacin/Dextrose 5%-Water 500 MG in Premix Bag 1 BAG IV SCH (08:08)
[2017-01-08] MEDS: Labetalol 100 MG Tab PO SCH ×2 (08:11→20:24)
[2017-01-08] MEDS: Losartan 25 MG Tab PO SCH ×2 (08:14→08:32)
[2017-01-08] MEDS: Ferrous Sulfate 325 MG Tab PO SCH (08:14)
[2017-01-08] MEDS: Aspirin 81 MG Tab.Chew PO SCH (08:15)
[2017-01-08] MEDS: RESTASIS OPTH EYEBOTH SCH ×2 (08:15→20:25)
[2017-01-08] MEDS: prednisoLONE Acetate 1% Ophth Susp 5 ML Bottle EYEBOTH SCH (08:36)
[2017-01-08] MEDS: Hypromellose 0.5% Ophth Soln 15 ML Bottle EYEBOTH SCH ×2 (08:36→20:25)
[2017-01-08] MEDS ORDERED: CANAGLIFLOZIN PO SCH (09:00)
[2017-01-08] MEDS ORDERED: METFORMIN HCL PO SCH (09:00)
--- NOTE | 2017-01-08 09:13 | PCM.PN ---
<Mary Beth Regalado - Last Filed: 01/08/17 11:10> - General Info Date of Service: 01/08/17 Admission Dx/Problem (Free Text): Admission Diagnosis/Problem Admission Diagnosis/Problem UTI, Urinary tract infectious disease Functional Status: Reports: Pain Controlled, Tolerating Diet, Ambulating (with walker), Urinating. Denies: New Symptoms - Review of Systems General: Denies: Fatigue, Malaise, Chills HEENT: Denies: Dysphasia, Sore Throat Pulmonary: Denies: Shortness of Breath, Cough, Hemoptysis Cardiovascular: Denies: Chest Pain, Palpitations, Dyspnea on Exertion, Edema, Lightheadedness Gastrointestinal: Reports: Other (has had an unintentional weight loss of about 15 lbs over the last 1-2 months). Denies: Abdominal Pain, Constipation, Decreased Appetite, Diarrhea, Difficulty Swallowing, Hematochezia, Melena, Nausea, Vomiting Genitourinary: Reports: Pain (perineal area), Hematuria, Other (pressure). Denies: Burning, Urgency, Retention, Flank Pain Musculoskeletal: Reports: No Symptoms, Other (reports joint aches all over due to fibromyalgia) Skin: Denies: Cyanosis, Jaundice, Diaphoresis, Rash Neurological: Denies: Confusion, Dizziness, Headache, Numbness, Tingling Psychiatric: Reports: No Symptoms. Denies: Confusion, Anxiety, Agitation Systems Review Comment:: Upon further conversation with the patient, it was found that although the patient has had no change in appetite, she has unintentionally lost around 15lbs in the last 1-2 months. She has a family history of leukemia in her mother who is at 80yo, father who passed from [place] at 84yo, a sister from [facility], and one sister that is still living with current diagnosis of COPD. The patient reports having fallen to which she thought was her knees in April of this year, and has been using a walker for stability purposes. She also reports having had a consult with neurosurgery (Dr. Carvalho) this last saturday, and she mentioned that he told her that she had a sacral fracture at the time; but did not want to perform surgery due to recurrent infections. - Patient Data Vitals - Most Recent: Last Vital Signs Temp 98.4 F 01/08/17 02:38 Pulse 85 01/08/17 08:12 Resp 14 01/08/17 02:38 BP 139/74 01/08/17 08:12 Pulse Ox 98 01/08/17 08:12 Weight - Most Recent: 67.631 kg I&O - Last 24 Hours: Intake & Output 01/07/17 01/08/17 01/08/17 22:59 06:59 14:59 Intake Total 1436 Output Total 1000 Balance 436 Imaging Impressions - Last 24 Hours: CT report impression: inflammatory process in and around the pubic symphysis which is resulting in some bony destruction or erosions of the pubic bones adjacent to the symphysis. Prior CT done in November 2016, showed a fluid density that has resolved, but the CT report today noted that the erosive process has progressed, with no acute fracture or dislocation. Lab Results Last 24 Hours: Laboratory Results - last 24 hr 01/08/17 01/08/17 01/08/17 Range/Units 06:15 06:15 06:16 WBC 8.82 (3.98-10.04) K/mm3 RBC 3.89 L (3.98-5.22) M/mm3 Hgb 9.6 L (11.2-15.7) gm/L Hct 31.6 L (34.1-44.9) % MCV 81.2 (79.4-94.8) fl MCH 24.7 L (25.6-32.2) pg MCHC 30.4 L (32.2-35.5) g/dl RDW Std Deviation 46.7 H (36.4-46.3) fL Plt Count 412 H (182-369) K/mm3 MPV 9.0 L (9.4-12.3) fl Neut % (Auto) 49.6 (34.0-71.1) % Lymph % (Auto) 35.5 (19.3-51.7) % [place] % (Auto) 11.0 (4.7-12.5) % Eos % (Auto) 3.4 (0.7-5.8) Baso % (Auto) 0.3 (0.1-1.2) % Neut # (Auto) 4.37 (1.56-6.13) K/mm3 Lymph # (Auto) 3.13 (1.18-3.74) K/mm3 [place] # (Auto) 0.97 H (0.24-0.36) K/mm3 Eos # (Auto) 0.30 (0.04-0.36) K/mm3 Baso # (Auto) 0.03 (0.01-0.08) K/mm3 Sodium 141 (136-145) mEq/L Potassium 4.0 (3.5-5.1) mEq/L Chloride 108 H (98-107) mEq/L Carbon Dioxide 24 (21-32) mEq/L Anion Gap 13.0 (5-15) BUN 18 (7-18) mg/dL Creatinine 0.7 (0.55-1.02) mg/dL Est Cr Clr Drug Dosing 59.60 mL/min Estimated GFR (MDRD) > 60 (>60) mL/min BUN/Creatinine Ratio 25.7 H (14-18) Glucose 87 (83-115) mg/dL POC Glucose 75 L (83-110) mg/dL Calcium 8.7 (8.5-10.1) mg/dL Magnesium 2.0 (1.8-2.4) mg/dl C-Reactive Protein 1.6 H* (<1.0) mg/dL 01/08/17 Range/Units 07:02 WBC (3.98-10.04) K/mm3 RBC (3.98-5.22) M/mm3 Hgb (11.2-15.7) gm/L Hct (34.1-44.9) % MCV (79.4-94.8) fl MCH (25.6-32.2) pg MCHC (32.2-35.5) g/dl RDW Std Deviation (36.4-46.3) fL Plt Count (182-369) K/mm3 MPV (9.4-12.3) fl Neut % (Auto) (34.0-71.1) % Lymph % (Auto) (19.3-51.7) % [place] % (Auto) (4.7-12.5) % Eos % (Auto) (0.7-5.8) Baso % (Auto) (0.1-1.2) % Neut # (Auto) (1.56-6.13) K/mm3 Lymph # (Auto) (1.18-3.74) K/mm3 [place] # (Auto) (0.24-0.36) K/mm3 Eos # (Auto) (0.04-0.36) K/mm3 Baso # (Auto) (0.01-0.08) K/mm3 Sodium (136-145) mEq/L Potassium (3.5-5.1) mEq/L Chloride (98-107) mEq/L Carbon Dioxide (21-32) mEq/L Anion Gap (5-15) BUN (7-18) mg/dL Creatinine (0.55-1.02) mg/dL Est Cr Clr Drug Dosing mL/min Estimated GFR (MDRD) (>60) mL/min BUN/Creatinine Ratio (14-18) Glucose (83-115) mg/dL POC Glucose 135 H (83-110) mg/dL Calcium (8.5-10.1) mg/dL Magnesium (1.8-2.4) mg/dl C-Reactive Protein (<1.0) mg/dL Med Orders - Current: Current Medications Acetaminophen (Tylenol) 650 mg PO Q4H PRN PRN Reason: Pain (Mild 1-3)/fever Hydrocodone Bitart/Acetaminophen ([place] 325-5 Mg) 1 tab PO Q4H PRN PRN Reason: Pain (moderate 4-6) Last Admin: 01/07/17 23:00 Dose: 1 tab Albuterol/Ipratropium (Duoneb 3.0-0.5 Mg/3 Ml) 3 ml NEB Q4H PRN PRN Reason: Shortness Of Breath/wheezing Alprazolam (Xanax) 0.25 mg PO DAILY PRN PRN Reason: Anxiety Amitriptyline HCl (Elavil) 50 mg PO BEDTIME [facility] Artificial Tears (Isopto Tears 0.5% Ophth Soln) 0 ml EYEBOTH BID [facility] Last Admin: 01/08/17 08:36 Dose: 1 drop Aspirin (Aspirin) 81 mg PO DAILY [facility] Last Admin: 01/08/17 08:15 Dose: 81 mg Bisacodyl (Dulcolax) 5 mg PO DAILY PRN PRN Reason: Constipation Docusate Sodium (Colace) 100 mg PO BID PRN PRN Reason: Constipation Ferrous Sulfate (Ferrous Sulfate) 325 mg PO DAILY [facility] Last Admin: 01/08/17 08:14 Dose: 325 mg Hydralazine HCl (Apresoline) 20 mg IVPUSH Q4H PRN PRN Reason: Hypertension Hydromorphone HCl (Dilaudid) 0.25 mg IVPUSH Q2H PRN PRN Reason: Pain (severe 7-10) Sodium Chloride (Normal Saline) 1,000 mls @ 125 mls/hr IV ASDIRECTED [facility] Last Admin: 01/08/17 02:26 Dose: 125 mls/hr Promethazine HCl 12.5 mg/ (Sodium Chloride) 50.5 mls @ 100 mls/hr IV Q6H PRN PRN Reason: Nausea/Vomiting Levofloxacin/Dextrose 500 mg/ (Premix) 100 mls @ 100 mls/hr IV Q24H [facility] Last Admin: 01/08/17 08:08 Dose: 100 mls/hr Vancomycin HCl 1 gm/ Sodium (Chloride) 250 mls @ 250 mls/hr IV Q12H [facility] Labetalol HCl (Normodyne) 100 mg PO BID [facility] Last Admin: 01/08/17 08:11 Dose: 100 mg Levothyroxine Sodium (Synthroid) 88 mcg PO ACBREAKFAST [facility] Last Admin: 01/08/17 07:18 Dose: 88 mcg Lorazepam (Ativan) 0.5 mg IV Q6H PRN PRN Reason: Anxiety Lorazepam (Ativan) 2 mg IVPUSH Q4H PRN PRN Reason: Seizures Losartan Potassium (Cozaar) 25 mg PO DAILY [facility] Last Admin: 01/08/17 08:32 Dose: Not Given Magnesium Sulfate (Pharmacy To Dose - Magnesium Replacement) 0 dose .XX ASDIRECTED PRN PRN Reason: RX TO WATCH MAG LEVELS Metoprolol Tartrate (Lopressor) 5 mg IVPUSH Q4H PRN PRN Reason: Tachycardia Ondansetron HCl (Zofran) 4 mg IV Q6H PRN PRN Reason: Nausea/Vomiting Pantoprazole Sodium (Protonix) 40 mg PO DAILY@0700 [facility] Last Admin: 01/08/17 07:16 Dose: 40 mg Canagliflozin/Metformin Hcl [ Invokamet 50-500 Mg Tablet] 0 each PO BID [facility] Restasis ( Cyclosporine) Opth Solution 0 each EYEBOTH BID [facility] Last Admin: 01/08/17 08:15 Dose: 1 each Polyethylene Glycol (Miralax) 17 gm PO DAILY PRN PRN Reason: Constipation Potassium Chloride (Pharmacy To Dose - Potassium Replacement) 0 dose .XX ASDIRECTED PRN PRN Reason: RX TO WATCH K LEVELS Prednisolone Acetate (Pred Forte 1% Ophth Susp) 0 ml EYEBOTH DAILY [facility] Last Admin: 01/08/17 08:36 Dose: 1 drop Senna/Docusate Sodium (Senna Plus) 1 tab PO BID PRN PRN Reason: Constipation Sodium Chloride (Saline Flush) 10 ml FLUSH ASDIRECTED PRN PRN Reason: Keep Vein Open Last Admin: 01/07/17 17:34 Dose: 10 ml Temazepam (Restoril) 7.5 mg PO BEDTIME PRN PRN Reason: Sleep Discontinued Medications Levofloxacin/Dextrose 750 mg/ (Premix) 150 mls @ 100 mls/hr IV ONETIME ONE Stop: 01/07/17 22:38 Last Admin: 01/07/17 22:14 Dose: 100 mls/hr Vancomycin HCl 1 gm/ Sodium (Chloride) 250 mls @ 250 mls/hr IV ONETIME ONE Stop: 01/07/17 22:08 Last Admin: 01/07/17 21:22 Dose: 250 mls/hr Iopamidol (Isovue-300 (61%)) 125 ml IVPUSH ONETIME ONE Stop: 01/07/17 21:11 Last Admin: 01/07/17 21:27 Dose: 125 ml - Exam Quality Assessment: DVT Prophylaxis (SCD's on). No: Skin Breakdown General: Alert, Oriented, Cooperative, No Acute Distress HEENT: Pupils Equal, Pupils Reactive, EOMI, Mucous Membr. Moist/[place] Neck: Supple, Trachea Midline, No JVD, No Thyromegaly. No: Lymphadenopathy Lungs: Clear to Auscultation, Normal Respiratory Effort. No: Rhonchi, Wheezing Cardiovascular: Regular Rate, Regular Rhythm, No Murmurs GI/Abdominal Exam: Normal Bowel Sounds, Soft, Non-Tender, No Organomegaly, No Distention, No Abnormal Bruit, No Mass, Pelvis Stable (Female) Exam: Deferred (reported having pelvic exam done with Primary care DrTomi at last physical this summer w/no abnormalities appreciated.) Back Exam: Normal Inspection, Full Range of Motion. No: CVA Tenderness (L), CVA Tenderness (R) Extremities: Normal Inspection, Normal Range of Motion, Non-Tender, No Pedal Edema, Normal Capillary Refill. No: Joint Swelling, Leg Pain Peripheral Pulses: 2+: Radial (L), Radial (R), Dorsalis Pedis (L), Dorsalis Pedis (R) Skin: Warm, Dry, Intact. No: Rash, Ecchymosis Neurological: Normal Speech, Normal Tone, Reflexes Equal Bilateral, Sensation Intact, Cranial Nerves Intact Psy/Mental Status: Alert, Normal Affect, Normal Mood - Problem List Review Problem List Initiated/Reviewed/Updated: Yes - Plan Plan:: Assessment/Plan: Acute: Acute UTI - Hx/o Recurrent UTI and Bacteremia - She needs urology eval with hematuria; she was seen by [facility] about a year ago - No hx/o renal stones or hemorrhagic cystitis - She denies any hx/o malignancy - She has hx/o E. coli, MSSA , Klebsiella Penumoniae and Citrobacter Koseri - Continue IV Levaquin, D/C Vancomycin - hx of MSSA organisms Hx/o Bacteremia - 2/2 Staph Aureus - Completed IV ATB (hx of merrem, ancef, and levaquin) Chronic: Impaired Vision HTN HLD GERD OA TIA DM2 Hypothyroidism Plan: Due to CT report, it was emphasized to pt that we should get another referral going so that she can see a urologist to figure out what might be causing the recurrent UTIs and hematuria. Blood Cx x2 - awaiting report Continue Meds and other orders as ordered Start Probiotic BID for C. Diff prophylaxis-hx of prolonged ABX therapy SW/CM for d/c planning- Pt has f/u appointment with ID (Dr. Oconnor) on Thursday 01/11. Has appointment with urology (Dr. Bowden) in February for this. Code status: 1 <Joleen Tran T - Last Filed: 01/08/17 18:37> - General Info Subjective Update: Follow Up Functional Status: Reports: Pain Controlled, Tolerating Diet, Ambulating, Urinating. Denies: New Symptoms - Review of Systems General: Denies: Fever, Fatigue, Malaise, Chills HEENT: Denies: Dysphasia Pulmonary: Denies: Shortness of Breath, Hemoptysis Cardiovascular: Denies: Chest Pain, Palpitations, Dyspnea on Exertion, Edema, Lightheadedness Gastrointestinal: Reports: Other. Denies: Abdominal Pain, Constipation, Diarrhea, Nausea, Vomiting Genitourinary: Reports: Other. Denies: Frequency, Burning, Urgency, Hematuria, Flank Pain Musculoskeletal: Reports: Other Skin: Denies: Cyanosis, Jaundice, Diaphoresis, Rash Neurological: Denies: Confusion, Dizziness, Headache, Numbness, Tingling, Difficulty Walking, Weakness, Gait Disturbance Psychiatric: Denies: Confusion, Depression, Anxiety, Agitation, Hallucinations Systems Review Comment:: No significant overnight or acute issues. She slept well. She does not look ill at all. She has no new complaints. She is afebrile with resolved leukocytosis. her CRP is 1.6 this am. - Patient Data Vitals - Most Recent: Last Vital Signs Temp 36.9 C 01/08/17 02:38 Pulse 85 01/08/17 08:12 Resp 14 01/08/17 02:38 BP 139/74 01/08/17 08:12 Pulse Ox 98 01/08/17 08:12 I&O - Last 24 Hours: Intake & Output 01/08/17 01/08/17 01/08/17 06:59 14:59 22:59 Intake Total 2706 173 0886 Output Total 1000 1650 Balance 436 560 -610 Lab Results Last 24 Hours: Laboratory Results - last 24 hr 01/08/17 01/08/17 01/08/17 Range/Units 06:15 06:15 06:16 WBC 8.82 (3.98-10.04) K/mm3 RBC 3.89 L (3.98-5.22) M/mm3 Hgb 9.6 L (11.2-15.7) gm/L Hct 31.6 L (34.1-44.9) % MCV 81.2 (79.4-94.8) fl MCH 24.7 L (25.6-32.2) pg MCHC 30.4 L (32.2-35.5) g/dl RDW Std Deviation 46.7 H (36.4-46.3) fL Plt Count 412 H (182-369) K/mm3 MPV 9.0 L (9.4-12.3) fl Neut % (Auto) 49.6 (34.0-71.1) % Lymph % (Auto) 35.5 (19.3-51.7) % [place] % (Auto) 11.0 (4.7-12.5) % Eos % (Auto) 3.4 (0.7-5.8) Baso % (Auto) 0.3 (0.1-1.2) % Neut # (Auto) 4.37 (1.56-6.13) K/mm3 Lymph # (Auto) 3.13 (1.18-3.74) K/mm3 [place] # (Auto) 0.97 H (0.24-0.36) K/mm3 Eos # (Auto) 0.30 (0.04-0.36) K/mm3 Baso # (Auto) 0.03 (0.01-0.08) K/mm3 Sodium 141 (136-145) mEq/L Potassium 4.0 (3.5-5.1) mEq/L Chloride 108 H (98-107) mEq/L Carbon Dioxide 24 (21-32) mEq/L Anion Gap 13.0 (5-15) BUN 18 (7-18) mg/dL Creatinine 0.7 (0.55-1.02) mg/dL Est Cr Clr Drug Dosing 59.60 mL/min Estimated GFR (MDRD) > 60 (>60) mL/min BUN/Creatinine Ratio 25.7 H (14-18) Glucose 87 (83-115) mg/dL POC Glucose 75 L (83-110) mg/dL Calcium 8.7 (8.5-10.1) mg/dL Magnesium 2.0 (1.8-2.4) mg/dl C-Reactive Protein 1.6 H* (<1.0) mg/dL 01/08/17 01/08/17 01/08/17 Range/Units 07:02 11:29 17:44 WBC (3.98-10.04) K/mm3 RBC (3.98-5.22) M/mm3 Hgb (11.2-15.7) gm/L Hct (34.1-44.9) % MCV (79.4-94.8) fl MCH (25.6-32.2) pg MCHC (32.2-35.5) g/dl RDW Std Deviation (36.4-46.3) fL Plt Count (182-369) K/mm3 MPV (9.4-12.3) fl Neut % (Auto) (34.0-71.1) % Lymph % (Auto) (19.3-51.7) % [place] % (Auto) (4.7-12.5) % Eos % (Auto) (0.7-5.8) Baso % (Auto) (0.1-1.2) % Neut # (Auto) (1.56-6.13) K/mm3 Lymph # (Auto) (1.18-3.74) K/mm3 [place] # (Auto) (0.24-0.36) K/mm3 Eos # (Auto) (0.04-0.36) K/mm3 Baso # (Auto) (0.01-0.08) K/mm3 Sodium (136-145) mEq/L Potassium (3.5-5.1) mEq/L Chloride (98-107) mEq/L Carbon Dioxide (21-32) mEq/L Anion Gap (5-15) BUN (7-18) mg/dL Creatinine (0.55-1.02) mg/dL Est Cr Clr Drug Dosing mL/min Estimated GFR (MDRD) (>60) mL/min BUN/Creatinine Ratio (14-18) Glucose (83-115) mg/dL POC Glucose 135 H 97 184 H (83-110) mg/dL Calcium (8.5-10.1) mg/dL Magnesium (1.8-2.4) mg/dl C-Reactive Protein (<1.0) mg/dL Med Orders - Current: Current Medications Acetaminophen (Tylenol) 650 mg PO Q4H PRN PRN Reason: Pain (Mild 1-3)/fever Hydrocodone Bitart/Acetaminophen ([place] 325-5 Mg) 1 tab PO Q4H PRN PRN Reason: Pain (moderate 4-6) Last Admin: 01/08/17 09:50 Dose: 1 tab Albuterol/Ipratropium (Duoneb 3.0-0.5 Mg/3 Ml) 3 ml NEB Q4H PRN PRN Reason: Shortness Of Breath/wheezing Alprazolam (Xanax) 0.25 mg PO DAILY PRN PRN Reason: Anxiety Amitriptyline HCl (Elavil) 50 mg PO BEDTIME [facility] Artificial Tears (Isopto Tears 0.5% Ophth Soln) 0 ml EYEBOTH BID [facility] Last Admin: 10/03/17 08:36 Dose: 1 drop Aspirin (Aspirin) 81 mg PO DAILY [facility] Last Admin: 01/08/17 08:15 Dose: 81 mg Bisacodyl (Dulcolax) 5 mg PO DAILY PRN PRN Reason: Constipation Docusate Sodium (Colace) 100 mg PO BID PRN PRN Reason: Constipation Ferrous Sulfate (Ferrous Sulfate) 325 mg PO DAILY [facility] Last Admin: 01/08/17 08:14 Dose: 325 mg Hydralazine HCl (Apresoline) 20 mg IVPUSH Q4H PRN PRN Reason: Hypertension Hydromorphone HCl (Dilaudid) 0.25 mg IVPUSH Q2H PRN PRN Reason: Pain (severe 7-10) Sodium Chloride (Normal Saline) 1,000 mls @ 125 mls/hr IV ASDIRECTED [facility] Last Admin: 01/08/17 10:55 Dose: 125 mls/hr Promethazine HCl 12.5 mg/ (Sodium Chloride) 50.5 mls @ 100 mls/hr IV Q6H PRN PRN Reason: Nausea/Vomiting Levofloxacin/Dextrose 500 mg/ (Premix) 100 mls @ 100 mls/hr IV Q24H [facility] Last Admin: 01/08/17 08:08 Dose: 100 mls/hr Labetalol HCl (Normodyne) 100 mg PO BID [facility] Last Admin: 01/08/17 08:11 Dose: 100 mg Levothyroxine Sodium (Synthroid) 88 mcg PO ACBREAKFAST [facility] Last Admin: 01/08/17 07:18 Dose: 88 mcg Lorazepam (Ativan) 0.5 mg IV Q6H PRN PRN Reason: Anxiety Lorazepam (Ativan) 2 mg IVPUSH Q4H PRN PRN Reason: Seizures Losartan Potassium (Cozaar) 25 mg PO DAILY [facility] Last Admin: 01/08/17 08:32 Dose: Not Given Magnesium Sulfate (Pharmacy To Dose - Magnesium Replacement) 0 dose .XX ASDIRECTED PRN PRN Reason: RX TO WATCH MAG LEVELS Metoprolol Tartrate (Lopressor) 5 mg IVPUSH Q4H PRN PRN Reason: Tachycardia Ondansetron HCl (Zofran) 4 mg IV Q6H PRN PRN Reason: Nausea/Vomiting Pantoprazole Sodium (Protonix) 40 mg PO DAILY@0700 [facility] Last Admin: 01/08/17 07:16 Dose: 40 mg Canagliflozin/Metformin Hcl [ Invokamet 50-500 Mg Tablet] 0 each PO BID [facility] Restasis ( Cyclosporine) Opth Solution 0 each EYEBOTH BID [facility] Last Admin: 01/08/17 08:15 Dose: 1 each Polyethylene Glycol (Miralax) 17 gm PO DAILY PRN PRN Reason: Constipation Potassium Chloride (Pharmacy To Dose - Potassium Replacement) 0 dose .XX ASDIRECTED PRN PRN Reason: RX TO WATCH K LEVELS Prednisolone Acetate (Pred Forte 1% Ophth Susp) 0 ml EYEBOTH DAILY [facility] Last Admin: 01/08/17 08:36 Dose: 1 drop Senna/Docusate Sodium (Senna Plus) 1 tab PO BID PRN PRN Reason: Constipation Sodium Chloride (Saline Flush) 10 ml FLUSH ASDIRECTED PRN PRN Reason: Keep Vein Open Last Admin: 01/07/17 17:34 Dose: 10 ml Temazepam (Restoril) 7.5 mg PO BEDTIME PRN PRN Reason: Sleep Discontinued Medications Levofloxacin/Dextrose 750 mg/ (Premix) 150 mls @ 100 mls/hr IV ONETIME ONE Stop: 01/07/17 22:38 Last Admin: 01/07/17 22:14 Dose: 100 mls/hr Vancomycin HCl 1 gm/ Sodium (Chloride) 250 mls @ 250 mls/hr IV ONETIME ONE Stop: 01/07/17 22:08 Last Admin: 01/07/17 21:22 Dose: 250 mls/hr Vancomycin HCl 1 gm/ Sodium (Chloride) 250 mls @ 250 mls/hr IV Q12H [facility] Last Admin: 01/08/17 10:56 Dose: Not Given Vancomycin HCl 1 gm/ Sodium (Chloride) 250 mls @ 250 mls/hr IV Q12H [facility] Last Admin: 01/08/17 09:51 Dose: 250 mls/hr Iopamidol (Isovue-300 (61%)) 125 ml IVPUSH ONETIME ONE Stop: 01/07/17 21:11 Last Admin: 01/07/17 21:27 Dose: 125 ml - Exam Quality Assessment: DVT Prophylaxis General: Alert, Oriented, Cooperative, No Acute Distress HEENT: Pupils Equal, Pupils Reactive, EOMI, Mucous Membr. Moist/[place] Neck: Supple, Trachea Midline, No JVD, No Thyromegaly Lungs: Clear to Auscultation, Normal Respiratory Effort Cardiovascular: Regular Rate, Regular Rhythm, No Murmurs GI/Abdominal Exam: Normal Bowel Sounds, Soft, Non-Tender, No Organomegaly, No Distention (Female) Exam: Deferred Back Exam: Normal Inspection, Decreased Range of Motion Extremities: Normal Inspection, Normal Range of Motion, Non-Tender, No Pedal Edema. No: Joint Swelling, Leg Pain Peripheral Pulses: 2+: Dorsalis Pedis (L), Dorsalis Pedis (R) Skin: Warm, Dry, Intact Neurological: No New Focal Deficit Psy/Mental Status: Alert, Normal Affect, Normal Mood - Problem List Review Problem List Initiated/Reviewed/Updated: Yes - My Orders Last 24 Hours: My Active Orders 01/07/17 22:21 Height and Weight [RC] 04 Oxygen Therapy [RC] PRN Up With Assistance [RC] QSHIFT Up ad Dolly [RC] QSHIFT VTE/DVT Education [RC] BID Vital Signs [RC] Q4HR Acetaminophen [Tylenol] 650 mg PO Q4H PRN Acetaminophen/HYDROcodone [[place] 325-5 MG] 1 tab PO Q4H PRN Albuterol/Ipratropium [DuoNeb 3.0-0.5 MG/3 ML] 3 ml NEB Q4H PRN Bisacodyl [Dulcolax] 5 mg PO DAILY PRN Docusate Sodium [Colace] 100 mg PO BID PRN Docusate Sodium/Sennosides [Senna Plus] 1 tab PO BID PRN HYDROmorphone [Dilaudid] 0.25 mg IVPUSH Q2H PRN LORazepam [Ativan] 0.5 mg IV Q6H PRN Ondansetron [Zofran] 4 mg IV Q6H PRN Polyethylene Glycol 3350 [MiraLAX] 17 gm PO DAILY PRN Promethazine [Phenergan] 12.5 mg Sodium Chloride 0.9% [Normal Saline] 50 ml IV Q6H Temazepam [Restoril] 7.5 mg PO BEDTIME PRN Resuscitation Status Routine 01/07/17 22:22 Intake and Output [RC] 04,16 Sequential Compression Device [OM.PC] Per Unit Routine 01/07/17 22:23 Antiembolic Devices [RC] BID 01/07/17 22:24 RT Aerosol Therapy [RC] ASDIRECTED Consult to Case Management [CONS] Routine Consult to Sales Marketing Director [CONS] Routine Consult to Spiritual Care [CONS] Routine OT Evaluation and Treatment [CONS] Routine PT Evaluation and Treatment [CONS] Routine 01/07/17 22:26 ALPRAZolam [Xanax] 0.25 mg PO DAILY PRN 01/07/17 22:51 LORazepam [Ativan] 2 mg IVPUSH Q4H PRN Metoprolol Tartrate [Lopressor] 5 mg IVPUSH Q4H PRN hydrALAZINE [Apresoline] 20 mg IVPUSH Q4H PRN 01/07/17 23:00 Magnesium Rep Pharmacy to Dose [Pharmacy to Dose - Magnesium Replacement] 0 dose .XX ASDIRECTED PRN Potassium Rep Pharmacy to Dose [Pharmacy to Dose - Potassium Replacement] 0 dose .XX ASDIRECTED PRN 01/08/17 02:10 Blood Glucose Check, Bedside [RC] QIDACANDBED 01/08/17 07:00 Levothyroxine [Synthroid] 88 mcg PO ACBREAKFAST Pantoprazole [ProTONIX] 40 mg PO DAILY@0700 01/08/17 09:00 Aspirin 81 mg PO DAILY Ferrous Sulfate 325 mg PO DAILY Hypromellose [Isopto Tears 0.5% Ophth Soln] 0 ml EYEBOTH BID Labetalol [Normodyne] 100 mg PO BID Levofloxacin/Dextrose 5%-Water [Levaquin in D5W 500 MG/100 ML] 500 mg Premix Bag 1 bag IV Q24H Losartan [Cozaar] 25 mg PO DAILY Patient's Own Medication [Ptom] 0 each EYEBOTH BID Patient's Own Medication [Ptom] 0 each PO BID prednisoLONE Acetate [Pred Forte 1% Ophth Susp] 0 ml EYEBOTH DAILY 01/08/17 21:00 Amitriptyline [Elavil] 50 mg PO BEDTIME 01/09/17 05:11 BASIC METABOLIC PANEL,BMP [CHEM] AM C-REACTIVE PROTEIN [CHEM] AM CBC WITH AUTO DIFF [HEME] AM MAGNESIUM [CHEM] AM 01/10/17 05:11 BASIC METABOLIC PANEL,BMP [CHEM] AM C-REACTIVE PROTEIN [CHEM] AM CBC WITH AUTO DIFF [HEME] AM MAGNESIUM [CHEM] AM 01/11/17 05:11 BASIC METABOLIC PANEL,BMP [CHEM] AM C-REACTIVE PROTEIN [CHEM] AM CBC WITH AUTO DIFF [HEME] AM MAGNESIUM [CHEM] AM - Plan Plan:: Assessment/Plan: Acute: Acute UTI - Hx/o Recurrent UTI and Bacteremia - She needs urology eval with hematuria; she was seen by [facility] about a year ago - No hx/o renal stones or hemorrhagic cystitis - She denies any hx/o malignancy - She has hx/o E. coli, MSSA, Klebsiella Penumoniae and Citrobacter Koseri - UA no growth for 1 day - Continue IV Levaquin, D/C Vancomycin - hx of MSSA organisms Hx/o Bacteremia - 2/2 Staph Aureus - Completed IV ATB (hx of merrem, ancef, and levaquin) - Blood Culture x1 not growth for 1 day Chronic: Impaired Vision HTN HLD GERD OA TIA DM2 Hypothyroidism Plan: She is clinically stable Continue current treatment Continue Meds and other orders as ordered Start Probiotic BID for C. Diff prophylaxis-hx of prolonged ABX therapy SW/CM for d/c planning- Pt has f/u appointment with ID (Dr. Oconnor) on Thursday 01/11. Has appointment with urology (Dr. Bowden) in February for this Code status: 1 Possible d/c in AM if cultures remain negative
[2017-01-08] MEDS: Acetaminophen/HYDROcodone 325-5 MG Tab PO PRN ×2 (09:50→20:42)
[2017-01-08] MEDS ORDERED: FLU Vacc TS 2017-18 (65yr UP)/PF 180 MCG/0.5 ML Syringe IM ONE (10:00)
--- NOTE | 2017-01-08 12:53 | CT ---
CT abdomen and pelvis Technique: Multiple axial sections were obtained from above the dome of the diaphragm inferiorly through the pubic symphysis. Intravenous contrast was utilized. No oral contrast has been given. Delayed images were obtained through the bladder. Comparison: Previous CT abdomen and pelvis exam of 11/20/16. Findings: Small portion of the visualized lung bases are clear. Liver shows no focal parenchymal abnormality. Spleen appears within normal limits. Adrenal glands show no nodule. Kidneys show symmetric contrast enhancement without hydronephrosis or mass. Pancreas is normal. Gallbladder shows no calcified gallstones. Aorta and iliac vessels shows atherosclerotic change without aneurysm. No retroperitoneal adenopathy or mesenteric abnormalities are seen. No pelvic mass or adenopathy is seen. Mild increased stool noted within the colon. Delayed images show contrast within the distal ureters and within the bladder. Soft tissue material is seen around the pubic symphysis. Mild cortical erosions are seen within the pubic symphysis. Findings have progressed from previous exam. Degenerative change and mild scoliosis present within the spine. Impression: 1. Inflammatory change and slight erosions within the pubic symphysis. Findings have progressed from prior exam. Please correlate if patient has any symptoms to this area or any symptoms of osteomyelitis. 2. Other incidental findings as noted above. Nothing acute is otherwise seen. Diagnostic code #3 I agree with preliminary report issued by [employer] ([facility] report finalized on 01/07/17, 10:47 PM Central Time)
[2017-01-08] MEDS: metFORMIN 500 MG Tab PO SCH (20:25)
[2017-01-08] MEDS ORDERED: Amitriptyline 25 MG Tab PO SCH (21:00)
[2017-01-09] MEDS: Sodium Chloride 0.9% 1,000 ML IV SCH (03:52)
[2017-01-09] MEDS: Pantoprazole 40 MG Tab.CR PO SCH (06:53)
[2017-01-09] MEDS: Levothyroxine 88 MCG Tab PO SCH (06:53)
[2017-01-09] MEDS: metFORMIN 500 MG Tab PO SCH (06:53)
[2017-01-09 07:46] VITALS: BP 154/75
[2017-01-09] MEDS: Levofloxacin/Dextrose 5%-Water 500 MG in Premix Bag 1 BAG IV SCH (08:27)
[2017-01-09] MEDS: Losartan 25 MG Tab PO SCH (08:28)
[2017-01-09] MEDS: Labetalol 100 MG Tab PO SCH (08:28)
[2017-01-09] MEDS: prednisoLONE Acetate 1% Ophth Susp 5 ML Bottle EYEBOTH SCH (08:29)
[2017-01-09] MEDS: Aspirin 81 MG Tab.Chew PO SCH (08:29)
[2017-01-09] MEDS: Ferrous Sulfate 325 MG Tab PO SCH (08:29)
[2017-01-09] MEDS: Hypromellose 0.5% Ophth Soln 15 ML Bottle EYEBOTH SCH (08:29)
[2017-01-09] MEDS: RESTASIS OPTH EYEBOTH SCH (08:30)
--- NOTE | 2017-01-09 11:04 | PCM.DCSUM1 ---
Discharge Summary - Hospital Course Brief History: This is a 76-year-old elderly white female with past medical history of impaired vision, hypertension, hyperlipidemia, type 2 diabetes, hypothyroidism, GERD, or short arthritis, TIA, and chronic back pain who presents to the emergency department with complains of genitourinary symptoms such as hematuria, increased frequency, urinary retention and dysuria. She was admitted for medical treatment of presumptive UTI. - Discharge Data Discharge Date: 01/09/17 Discharge Disposition: Home, Self-Care 01 Condition: Good - Discharge Diagnosis/Problem(s) (1) UTI, Urinary tract infectious disease SNOMED Code(s): 26789818 ICD Code: N39.0 - URINARY TRACT INFECTION, SITE NOT SPECIFIED Status: Suspected (2) Elevated WBC count SNOMED Code(s): 327185604 ICD Code: D72.829 - ELEVATED WHITE BLOOD CELL COUNT, UNSPECIFIED Status: Resolved Qualifiers: Leukocytosis type: unspecified Qualified Code(s): D72.829 - Elevated white blood cell count, unspecified (3) Erosive (osteo)arthritis SNOMED Code(s): 739848806 ICD Code: M15.4 - EROSIVE (OSTEO)ARTHRITIS Status: Acute - Patient Summary/Data Operative Procedure(s) Performed: None Complications: None Consults: Consultations 01/07/17 22:24 Consult to Case Management [CONS] Routine Consult to Scale Tank Operator [CONS] Routine Consult to Spiritual Care [CONS] Routine OT Evaluation and Treatment [CONS] Routine PT Evaluation and Treatment [CONS] Routine Labs Pending at D/C: None Recommended Follow-up Testing/Procedures: None Planned Operative Procedure(s) after DC: None Hospital Course: Patient was primarily admitted for medical treatment of presumptive urinary tract infection. He carried a past medical history of recurrent UTI and most recently completed treatment related to bacteremia. She presented to the emergency department with complaints. Her initial workup in the emergency department revealed patient UA was positive for UTI. In ED she received initial treatment to include intravenous antibiotics before she was sent to the floor for further treatment. On the floor, we continued supportive care and intravenous antibiotics based on her previous sensitivities. The patient improved clinically without worsening of presenting illness. We expected her cultures would be positive but none revealed any organismal growth to include her urine culture. Therefore we stopped all antibiotics immediately. Her hospital course was uncomplicated. The rest of her chronic medical illness remained stable during this admission. We discussed an abnormal finding related to pelvic inflammatory changes noted on her recent abdominal/pelvic CT scan. We felt this was due to erosive arthropathy and was advised to be monitored and followed-up on by her PCP outpatient. Patient was discharged in stable condition. She was advised to follow-up with ID and Urology as initially scheduled. She was further advised to follow-up with her PCP as needed right after discharge. The patient expressed understanding and in agreement with the plans as discussed above. All questions were answered. - Patient Instructions Diet: Usual Diet as Tolerated Activity: As Tolerated Driving: Do Not Drive Notify Provider of: Fever, Increased Pain, Nausea and/or Vomiting Other/Special Instructions: - Please take all medications as directed. - Keep all appointments as initially scheduled. - Call or follow up with your doctor if you have any questions or concerns right after discharge - Discharge Plan Prescriptions/Med Rec: metFORMIN [Glucophage] 500 mg PO BIDMEALS #60 tablet Home Medications: Home Meds ALPRAZolam [Xanax] 0.25 mg PO DAILY PRN 07/03/14 [History] Amitriptyline [Elavil] 50 mg PO BEDTIME 07/03/14 [History] Calcium Carbonate/Vitamin D3 [Calcium 600 + Vit D 400] 1 tab PO BID 07/03/14 [ History] Levothyroxine [Synthroid] 88 mcg PO DAILY 07/03/14 [History] Aspirin 81 mg PO DAILY 01/31/15 [History] Labetalol [Normodyne] 100 mg PO BID 01/31/15 [History] cycloSPORINE [Restasis] 1 drop EYEBOTH BID 01/31/15 [History] prednisoLONE Acetate [Pred Forte 1% Ophth Susp] 1 drop EYEBOTH DAILY 03/14/16 [ History] Methylcellulose [Fiber] 1 tab PO DAILY 10/27/16 [History] Omeprazole 20 mg PO DAILY 10/27/16 [History] Propylene Glycol/Peg 400 [Systane 0.3-0.4% Eye Drops] 1 drop EYEBOTH BID [History] Ferrous Gluconate [Iron] 240 mg PO DAILY 01/07/17 [History] Hydrocodone/Acetaminophen [[place] 5-325] 1 - 2 tab PO Q4H PRN 01/08/17 [History] metFORMIN [Glucophage] 500 mg PO BIDMEALS #60 tablet 01/09/17 [Rx] Patient Handouts: Urinary Tract Infection, Adult, [id number], Hematuria, Adult Referrals: Naresh Mora MD [Ordering Only Provider] - 02/18/17 10:45 am (please cone 15 minutes prior to the appoinment and bring insurance cards and photo id) Phu Leavitt MD [Primary Care Provider] - (Please see Dr. Richardson on Saturday at 4:15 PM.) - Discharge Summary/Plan Comment DC Time >30 min.: Yes (45 mins) Discharge Summary/Plan Comment: Discharge to Home - General Info Date of Service: 01/09/17 Admission Dx/Problem (Free Text: Admission Diagnosis/Problem Admission Diagnosis/Problem UTI, Urinary tract infectious disease Subjective Update: Follow Up Functional Status: Reports: Pain Controlled, Tolerating Diet, Ambulating, Urinating. Denies: New Symptoms - Review of Systems General: Denies: Fever, Weakness, Fatigue, Malaise, Chills HEENT: Reports: No Symptoms Gastrointestinal: Denies: Abdominal Pain, Nausea, Vomiting Genitourinary: Reports: No Symptoms Musculoskeletal: Reports: No Symptoms Skin: Denies: Cyanosis, Pallor, Diaphoresis, Rash Neurological: Denies: Confusion, Difficulty Walking, Weakness, Gait Disturbance Psychiatric: Denies: Depression, Anxiety, Agitation, Cravings, Hallucinations Systems Review Comment: No significant overnight or acute issues. She slept well. She is doing pretty good. She has no new complaints. - Patient Data Vitals - Most Recent: Last Vital Signs Temp 36.7 C 01/09/17 07:45 Pulse 80 01/09/17 08:28 Resp 14 01/09/17 07:45 BP 154/75 H 01/09/17 08:28 Pulse Ox 99 01/09/17 07:45 Weight - Most Recent: 69.218 kg I&O - Last 24 hours: Intake & Output 01/08/17 01/09/17 01/09/17 22:59 06:59 14:59 Intake Total 2621 1641 180 Output Total 1650 1150 Balance 971 491 180 Lab Results - Last 24 hrs: Laboratory Results - last 24 hr 01/08/17 01/08/17 01/08/17 Range/Units 11:29 17:44 19:56 WBC (3.98-10.04) K/mm3 RBC (3.98-5.22) M/mm3 Hgb (11.2-15.7) gm/L Hct (34.1-44.9) % MCV (79.4-94.8) fl MCH (25.6-32.2) pg MCHC (32.2-35.5) g/dl RDW Std Deviation (36.4-46.3) fL Plt Count (182-369) K/mm3 MPV (9.4-12.3) fl Neut % (Auto) (34.0-71.1) % Lymph % (Auto) (19.3-51.7) % [place] % (Auto) (4.7-12.5) % Eos % (Auto) (0.7-5.8) Baso % (Auto) (0.1-1.2) % Neut # (Auto) (1.56-6.13) K/mm3 Lymph # (Auto) (1.18-3.74) K/mm3 [place] # (Auto) (0.24-0.36) K/mm3 Eos # (Auto) (0.04-0.36) K/mm3 Baso # (Auto) (0.01-0.08) K/mm3 Sodium (136-145) mEq/L Potassium (3.5-5.1) mEq/L Chloride (98-107) mEq/L Carbon Dioxide (21-32) mEq/L Anion Gap (5-15) BUN (7-18) mg/dL Creatinine (0.55-1.02) mg/dL Est Cr Clr Drug Dosing mL/min Estimated GFR (MDRD) (>60) mL/min BUN/Creatinine Ratio (14-18) Glucose (83-115) mg/dL POC Glucose 97 184 H 107 (83-110) mg/dL Calcium (8.5-10.1) mg/dL Magnesium (1.8-2.4) mg/dl C-Reactive Protein (<1.0) mg/dL 01/09/17 01/09/17 01/09/17 Range/Units 05:40 05:40 06:13 WBC 7.71 (3.98-10.04) K/mm3 RBC 3.96 L (3.98-5.22) M/mm3 Hgb 9.7 L (11.2-15.7) gm/L Hct 32.2 L (34.1-44.9) % MCV 81.3 (79.4-94.8) fl MCH 24.5 L (25.6-32.2) pg MCHC 30.1 L (32.2-35.5) g/dl RDW Std Deviation 47.5 H (36.4-46.3) fL Plt Count 385 H (182-369) K/mm3 MPV 9.0 L (9.4-12.3) fl Neut % (Auto) 54.1 (34.0-71.1) % Lymph % (Auto) 32.0 (19.3-51.7) % [place] % (Auto) 9.2 (4.7-12.5) % Eos % (Auto) 4.2 (0.7-5.8) Baso % (Auto) 0.4 (0.1-1.2) % Neut # (Auto) 4.17 (1.56-6.13) K/mm3 Lymph # (Auto) 2.47 (1.18-3.74) K/mm3 [place] # (Auto) 0.71 H (0.24-0.36) K/mm3 Eos # (Auto) 0.32 (0.04-0.36) K/mm3 Baso # (Auto) 0.03 (0.01-0.08) K/mm3 Sodium 142 (136-145) mEq/L Potassium 3.7 (3.5-5.1) mEq/L Chloride 110 H (98-107) mEq/L Carbon Dioxide 23 (21-32) mEq/L Anion Gap 12.7 (5-15) BUN 17 (7-18) mg/dL Creatinine 0.6 (0.55-1.02) mg/dL Est Cr Clr Drug Dosing 69.53 mL/min Estimated GFR (MDRD) > 60 (>60) mL/min BUN/Creatinine Ratio 28.3 H (14-18) Glucose 118 H (83-115) mg/dL POC Glucose 106 (83-110) mg/dL Calcium 8.6 (8.5-10.1) mg/dL Magnesium 2.0 (1.8-2.4) mg/dl C-Reactive Protein 1.1 H* (<1.0) mg/dL Med Orders - Current: Current Medications Acetaminophen (Tylenol) 650 mg PO Q4H PRN PRN Reason: Pain (Mild 1-3)/fever Hydrocodone Bitart/Acetaminophen ([place] 325-5 Mg) 1 tab PO Q4H PRN PRN Reason: Pain (moderate 4-6) Last Admin: 01/08/17 20:42 Dose: 1 tab Albuterol/Ipratropium (Duoneb 3.0-0.5 Mg/3 Ml) 3 ml NEB Q4H PRN PRN Reason: Shortness Of Breath/wheezing Alprazolam (Xanax) 0.25 mg PO DAILY PRN PRN Reason: Anxiety Amitriptyline HCl (Elavil) 50 mg PO BEDTIME [facility] Last Admin: 01/08/17 20:24 Dose: 50 mg Artificial Tears (Isopto Tears 0.5% Ophth Soln) 0 ml EYEBOTH BID [facility] Last Admin: 01/09/17 08:29 Dose: 1 drop Aspirin (Aspirin) 81 mg PO DAILY [facility] Last Admin: 01/09/17 08:29 Dose: 81 mg Bisacodyl (Dulcolax) 5 mg PO DAILY PRN PRN Reason: Constipation Docusate Sodium (Colace) 100 mg PO BID PRN PRN Reason: Constipation Ferrous Sulfate (Ferrous Sulfate) 325 mg PO DAILY [facility] Last Admin: 01/09/17 08:29 Dose: 325 mg Hydralazine HCl (Apresoline) 20 mg IVPUSH Q4H PRN PRN Reason: Hypertension Hydromorphone HCl (Dilaudid) 0.25 mg IVPUSH Q2H PRN PRN Reason: Pain (severe 7-10) Sodium Chloride (Normal Saline) 1,000 mls @ 125 mls/hr IV ASDIRECTED [facility] Last Admin: 01/09/17 03:52 Dose: 125 mls/hr Promethazine HCl 12.5 mg/ (Sodium Chloride) 50.5 mls @ 100 mls/hr IV Q6H PRN PRN Reason: Nausea/Vomiting Levofloxacin/Dextrose 500 mg/ (Premix) 100 mls @ 100 mls/hr IV Q24H [facility] Last Admin: 01/09/17 08:27 Dose: 100 mls/hr Labetalol HCl (Normodyne) 100 mg PO BID [facility] Last Admin: 01/09/17 08:28 Dose: 100 mg Levothyroxine Sodium (Synthroid) 88 mcg PO ACBREAKFAST [facility] Last Admin: 01/09/17 06:53 Dose: 88 mcg Lorazepam (Ativan) 0.5 mg IV Q6H PRN PRN Reason: Anxiety Lorazepam (Ativan) 2 mg IVPUSH Q4H PRN PRN Reason: Seizures Losartan Potassium (Cozaar) 25 mg PO DAILY [facility] Last Admin: 01/09/17 08:28 Dose: Not Given Magnesium Sulfate (Pharmacy To Dose - Magnesium Replacement) 0 dose .XX ASDIRECTED PRN PRN Reason: RX TO WATCH MAG LEVELS Metformin HCl (Glucophage) 500 mg PO BIDMEALS [facility] Last Admin: 01/09/17 06:53 Dose: 500 mg Metoprolol Tartrate (Lopressor) 5 mg IVPUSH Q4H PRN PRN Reason: Tachycardia Ondansetron HCl (Zofran) 4 mg IV Q6H PRN PRN Reason: Nausea/Vomiting Pantoprazole Sodium (Protonix) 40 mg PO DAILY@0700 [facility] Last Admin: 01/09/17 06:53 Dose: 40 mg Restasis ( Cyclosporine) Opth Solution 0 each EYEBOTH BID [facility] Last Admin: 01/09/17 08:30 Dose: 1 each Polyethylene Glycol (Miralax) 17 gm PO DAILY PRN PRN Reason: Constipation Potassium Chloride (Pharmacy To Dose - Potassium Replacement) 0 dose .XX ASDIRECTED PRN PRN Reason: RX TO WATCH K LEVELS Prednisolone Acetate (Pred Forte 1% Ophth Susp) 0 ml EYEBOTH DAILY [facility] Last Admin: 01/09/17 08:29 Dose: 1 drop Senna/Docusate Sodium (Senna Plus) 1 tab PO BID PRN PRN Reason: Constipation Sodium Chloride (Saline Flush) 10 ml FLUSH ASDIRECTED PRN PRN Reason: Keep Vein Open Last Admin: 01/07/17 17:34 Dose: 10 ml Temazepam (Restoril) 7.5 mg PO BEDTIME PRN PRN Reason: Sleep Discontinued Medications Levofloxacin/Dextrose 750 mg/ (Premix) 150 mls @ 100 mls/hr IV ONETIME ONE Stop: 01/07/17 22:38 Last Admin: 01/07/17 22:14 Dose: 100 mls/hr Vancomycin HCl 1 gm/ Sodium (Chloride) 250 mls @ 250 mls/hr IV ONETIME ONE Stop: 01/07/17 22:08 Last Admin: 01/07/17 21:22 Dose: 250 mls/hr Vancomycin HCl 1 gm/ Sodium (Chloride) 250 mls @ 250 mls/hr IV Q12H [facility] Last Admin: 01/08/17 10:56 Dose: Not Given Vancomycin HCl 1 gm/ Sodium (Chloride) 250 mls @ 250 mls/hr IV Q12H [facility] Last Admin: 01/08/17 09:51 Dose: 250 mls/hr Iopamidol (Isovue-300 (61%)) 125 ml IVPUSH ONETIME ONE Stop: 01/07/17 21:11 Last Admin: 01/07/17 21:27 Dose: 125 ml Canagliflozin/Metformin Hcl [ Invokamet 50-500 Mg Tablet] 0 each PO BID [facility] Last Admin: 01/08/17 19:50 Dose: Not Given - Exam General: Reports: Alert, Oriented, Cooperative, No Acute Distress HEENT: Reports: Pupils Equal, Pupils Reactive, EOMI, Mucous Membr. Moist/[place] Neck: Reports: Supple, Trachea Midline, No JVD Lungs: Reports: Clear to Auscultation, Normal Respiratory Effort Cardiovascular: Reports: Regular Rate, Regular Rhythm GI/Abdominal Exam: Normal Bowel Sounds, Soft, Non-Tender, No Organomegaly, No Distention (Female) Exam: Deferred Rectal (Female) Exam: Deferred Back Exam: Reports: Normal Inspection, Decreased Range of Motion Extremities: Normal Inspection, Normal Range of Motion, Non-Tender, No Pedal Edema Skin: Reports: Warm, Dry, Intact Neurological: Reports: No New Focal Deficit Psy/Mental Status: Reports: Alert, Normal Affect, Normal Mood *Q Meaningful Use (DIS) - VTE *Q VTE Criteria *Q: - Stroke *Q Stroke Criteria *Q: - AMI *Q AMI Criteria *Q:
== END 2017-01-09 11:57 | disposition home or self-care (01) | DRG 690 ==
LOC: JD.ED 16:09 → UNDOADMIN 20:58 → JD.MS 20:58 → UNDODISIN 01-09 11:57
PROVIDERS: ADMIT Internal Medicine; ATTEND Internal Medicine
DX: N39.0 Urinary tract infection, site not specified (principal); H54.7 Unspecified visual loss; E78.00 Pure hypercholesterolemia, unspecified; I10 Essential (primary) hypertension; E78.5 Hyperlipidemia, unspecified; E11.9 Type 2 diabetes mellitus without complications; M19.90 Unspecified osteoarthritis, unspecified site; E03.9 Hypothyroidism, unspecified; K21.9 Gastro-esophageal reflux disease without esophagitis; M15.4 Erosive (osteo)arthritis; Z86.73 Personal history of transient ischemic attack (TIA), and cerebral infarction without residual deficits; G89.29 Other chronic pain; M54.9 Dorsalgia, unspecified; Z79.82 Long term (current) use of aspirin; Z79.899 Other long term (current) drug therapy
CPT/HCPCS: 36415; 80053; 81001; 85025; 86140; 87040 ×2; 87086; 96361; 99285; J7040; J7050; P9612; 74177; 74177-26; 80048; 82962; 83735; 96365; 97161-GP; 97165-GO; 99221; 99232; 99239; A9270-GY; J1956; J3370; Q9967

== ENCOUNTER 2019-03-31 12:16 | Emergency (ER) | payer MEDICARE, BC ==
[2019-03-31 12:28] VITALS: BP 148/76; PULSE 80
[2019-03-31] MEDS ORDERED: Sodium Chloride 0.9% 10 ML Syringe FLUSH PRN (13:11)
--- NOTE | 2019-03-31 14:10 | CR ---
Chest: Portable view of the chest was obtained. Comparison: Prior chest x-ray of 02/02/18. Heart size and mediastinum are within normal limits for portable technique. Lungs are clear. Scoliosis is noted within the spine. Bony structures show nothing acute. Impression: 1. Nothing acute is appreciated on portable chest x-ray. Diagnostic code #2 This report was dictated in [place] Standard Time
--- NOTE | 2019-03-31 14:57 | EDM.PDOC ---
ED HPI GENERAL MEDICAL PROBLEM - General Chief Complaint: Chest Pain Stated Complaint: CHEST PAIN Time Seen by Provider: 03/31/19 13:02 Source of Information: Reports: Patient, RN Notes Reviewed - History of Present Illness INITIAL COMMENTS - FREE TEXT/NARRATIVE: 78-year-old lady comes in with off-and-on chest pain over the last 2-3 days. That became more bothersome last evening and then again this morning after awakening. This as a burning discomfort anterior chest with some radiation up to the base of her neck. Have history of hypertension. She does not have history of coronary artery disease. She also does have type 2 diabetes on metformin. She does not smoke. She takes occasional [place] as needed for acid reflux. She's not short of breath. His been no cough, fever, chills, nausea or vomiting. Chest Pain Score (Numeric/FACES): 9 - Related Data Allergies Allergy/AdvReac Type Severity Reaction Status Date / Time No Known Allergies Allergy Verified 11/22/18 04:57 Home Meds: Home Meds ALPRAZolam [Xanax] 0.25 mg PO DAILY PRN 07/03/14 [History] Amitriptyline [Elavil] 50 mg PO BEDTIME 07/03/14 [History] Calcium Carbonate/Vitamin D3 [Calcium 600 + Vit D 400] 1 tab PO DAILY 07/03/14 [ History] Levothyroxine [Synthroid] 88 mcg PO DAILY 07/03/14 [History] Aspirin 81 mg PO DAILY 01/31/15 [History] Labetalol [Normodyne] 150 mg PO BID 01/31/15 [History] cycloSPORINE [Restasis] 1 drop EYEBOTH BID 01/31/15 [History] prednisoLONE Acetate [Pred Forte 1% Ophth Susp] 1 drop EYEBOTH DAILY 03/14/16 [ History] Methylcellulose [Fiber] 1 tab PO DAILY 10/27/16 [History] Propylene Glycol/Peg 400 [Systane 0.3-0.4% Eye Drops] 1 drop EYEBOTH BID [History] metFORMIN [Glucophage] 500 mg PO BIDMEALS #60 tablet 01/09/17 [Rx] methylPREDNISolone [Medrol] 1 tab PO ASDIRECTED 01/31/18 [History] Alpha Lipoic Acid 200 mg PO DAILY 11/22/18 [History] Biotin 1 mg PO DAILY 11/22/18 [History] Cranberry 500 mg PO DAILY 11/22/18 [History] amLODIPine Besylate [Amlodipine Besylate] 10 mg PO DAILY 11/22/18 [History] Losartan [Cozaar] 12.5 mg PO DAILY 03/31/19 [History] Rosuvastatin [Crestor] 10 mg PO TID 03/31/19 [History] Past Medical History HEENT History: Reports: Impaired Vision Cardiovascular History: Reports: High Cholesterol, Hypertension 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: Reports: GERD Genitourinary History: Reports: UTI, Recurrent [employer]INK[employer] 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 - Past Surgical History HEENT Surgical History: Reports: Cataract Surgery, Other (See Below) Other HEENT Surgeries/Procedures: cornea transplants Social & Family History - Family History Family Medical History: Noncontributory Cardiac: Reports: [place] - Tobacco Use Smoking Status *Q: Never Smoker - Caffeine Use Caffeine Use: Reports: Coffee - Recreational Drug Use Recreational Drug Use: No - Living Situation & Occupation Living situation: Reports: , Alone Occupation: Retired ED ROS GENERAL - Review of Systems Review Of Systems: See Below Constitutional: Denies: Fever, Chills, Diaphoresis HEENT: Reports: No Symptoms Respiratory: Denies: Shortness of Breath, Pleuritic Chest Pain, Cough Cardiovascular: Reports: Chest Pain GI/Abdominal: Denies: Abdominal Pain, Nausea, Vomiting Musculoskeletal: Denies: Shoulder Pain, Arm Pain Skin: Reports: No Symptoms Neurological: Reports: No Symptoms ED EXAM, GENERAL - Physical Exam Exam: See Below General Appearance: Alert, No Apparent Distress Eye Exam: Bilateral Eye: PERRL Head: Atraumatic. No: Facial Swelling Neck: Supple, Full Range of Motion, Other (No JVD) Respiratory/Chest: No Respiratory Distress, Lungs Clear, Normal Breath Sounds Cardiovascular: Regular Rate, Rhythm Neurological: Alert, Oriented, No Motor/Sensory Deficits Skin Exam: Warm, Dry, Normal Color EKG INTERPRETATION EKG Date: 04/07/19 Rhythm: NSR [place]: Normal P-Wave: Present QRS: Normal ST-T: Normal Course - Vital Signs Last Recorded V/S: Last Vital Signs Temp 97.1 F 03/31/19 12:26 Pulse 80 03/31/19 12:26 Resp 12 03/31/19 12:26 BP 148/76 H 03/31/19 12:26 Pulse Ox 99 03/31/19 12:26 - Orders/Labs/Meds Labs: Laboratory Tests 03/31/19 03/31/19 03/31/19 Range/Units 13:44 13:44 15:23 WBC 8.54 (3.98-10.04) K/mm3 RBC 4.30 (3.98-5.22) M/mm3 Hgb 11.9 (11.2-15.7) gm/dl Hct 37.1 (34.1-44.9) % MCV 86.3 (79.4-94.8) fl MCH 27.7 (25.6-32.2) pg MCHC 32.1 L (32.2-35.5) g/dl RDW Std Deviation 44.8 (36.4-46.3) fL Plt Count 333 (182-369) K/mm3 MPV 9.1 L (9.4-12.3) fl Neut % (Auto) 59.5 (34.0-71.1) % Lymph % (Auto) 29.3 (19.3-51.7) % [place] % (Auto) 8.0 (4.7-12.5) % Eos % (Auto) 2.6 (0.7-5.8) Baso % (Auto) 0.4 (0.1-1.2) % Neut # (Auto) 5.09 (1.56-6.13) K/mm3 Lymph # (Auto) 2.50 (1.18-3.74) K/mm3 [place] # (Auto) 0.68 H (0.24-0.36) K/mm3 Eos # (Auto) 0.22 (0.04-0.36) K/mm3 Baso # (Auto) 0.03 (0.01-0.08) K/mm3 Sodium 149 H (136-145) mEq/L Potassium 3.7 (3.5-5.1) mEq/L Chloride 109 H (98-107) mEq/L Carbon Dioxide 31 (21-32) mEq/L Anion Gap 12.7 (5-15) BUN 16 (7-18) mg/dL Creatinine 0.9 (0.55-1.02) mg/dL Est Cr Clr Drug Dosing 43.05 mL/min Estimated GFR (MDRD) > 60 (>60) mL/min BUN/Creatinine Ratio 17.8 (14-18) Glucose 107 (83-115) mg/dL Calcium 9.3 (8.5-10.1) mg/dL Total Bilirubin 0.4 (0.2-1.0) mg/dL AST 14 L (15-37) U/L ALT 23 (14-59) U/L Alkaline Phosphatase 80 (46-116) U/L Troponin I < 0.017 < 0.017 (0.00-0.056) ng/mL Total Protein 7.3 (6.4-8.2) g/dl Albumin 3.9 (3.4-5.0) g/dl Globulin 3.4 gm/dL Albumin/Globulin Ratio 1.2 (1-2) Meds: Medications Discontinued Medications Generic Name Dose Route Start Last Admin Trade Name Freq PRN Reason Stop Dose Admin Sodium Chloride 10 ml 03/31/19 13:11 Saline Flush FLUSH ASDIRECTED PRN Keep Vein Open - Re-Assessments/Exams Free Text/Narrative Re-Assessment/Exam: 04/01/19 15:55 Initial troponins negative, chest x-ray normal, secondary trocar also negative. Discharge instructions as documented. Departure - Departure Time of Disposition: 15:05 Disposition: Home, Self-Care 01 Condition: Fair Clinical Impression: Atypical chest pain, GERD (gastroesophageal reflux disease) Instructions: Gastroesophageal Reflux Disease, Adult, [id number] Referrals: Phu Leavitt MD [Primary Care Provider] - Forms: ED Department Discharge Additional Instructions: Avoid fatty and spicy foods for now, Tylenol every 6-8 hours as needed for chest wall discomfort, Pepcid or famotidine which is available OTC once or twice daily which will lower the acid of your stomach and help with acid reflux discomfort. You can also alternate ice and heat over anterior chest as needed. Follow up with your regular medical provider in 7-10 days for recheck, return to ED as needed if symptoms worsening in any way. Sepsis Event Note - Evaluation Sepsis Screening Result: No Definite Risk - Focused Exam Date Exam was Performed: 04/01/19 Time Exam was Performed: 15:54
== END 2019-03-31 15:40 | disposition home or self-care (01) ==
LOC: JD.ED 12:16
DX: R07.89 Other chest pain (principal); K21.9 Gastro-esophageal reflux disease without esophagitis; E78.00 Pure hypercholesterolemia, unspecified; E11.9 Type 2 diabetes mellitus without complications; I10 Essential (primary) hypertension; E03.9 Hypothyroidism, unspecified; Z79.82 Long term (current) use of aspirin; Z86.73 Personal history of transient ischemic attack (TIA), and cerebral infarction without residual deficits; Z79.899 Other long term (current) drug therapy
CPT/HCPCS: 36415; 71045; 71045-26; 80053; 84484; 85025; 93005; 93010; 99283; 99285-25

== ENCOUNTER 2022-09-30 21:25 | Emergency (ER) | payer MEDICARE, BC ==
[2022-09-30 21:39] VITALS: BP 193/70; PULSE 80
== END 2022-09-30 22:25 | disposition home or self-care (01) ==
LOC: JD.ED 21:25
DX: I10 Essential (primary) hypertension (principal); E03.9 Hypothyroidism, unspecified; E78.00 Pure hypercholesterolemia, unspecified; E11.9 Type 2 diabetes mellitus without complications; Z79.899 Other long term (current) drug therapy; Z79.82 Long term (current) use of aspirin; Z79.84 Long term (current) use of oral hypoglycemic drugs; Z87.891 Personal history of nicotine dependence
CPT/HCPCS: 99283

== ENCOUNTER → 2024-02-10 | Day surgery (SDC) | payer MEDICARE, BC ==
[~2024-02-10] MED LIST: Dexamethasone 4 MG/ML 5 ML MDV ONE; EPINEPHrine 1 MG/ML SDV ONE; HYDROmorphone 0.5 MG/0.5 ML Syringe IVPUSH PRN; Ketorolac 15 MG/ML SDV ONE; Lactated Ringers 1,000 ML ONE; Lidocaine 1% 5 ML VIAL ONE; Midazolam 1 MG/ML 2 ML SDV ONE; Ondansetron 4 MG/2 ML SDV IVPUSH PRN; Ondansetron 4 MG/2 ML SDV ONE; Phenylephrine 1% 10 MG/ML SDV ONE; Propofol 200 MG/20 ML SDV ONE; Rocuronium 50 MG/5 ML Vial ONE; Ropivacaine 0.5% 5 MG/ML 30 ML SDV ONE; Sodium Chloride 0.9% 10 ML Syringe FLUSH PRN; Sodium Chloride 0.9% 10 ML Syringe FLUSH SCH; Sugammadex Sodium 200 MG/2 ML VIAL IV ONE; ceFAZolin 2 GM Vial ONE; droPERidol 5 MG/2 ML SDV IVPUSH PRN; ePHEDrine 50 MG/ML SDV ONE; fentaNYL 100 MCG/2 ML SDV IVPUSH PRN; fentaNYL 250 MCG/5 ML SDV ONE
[2024-02-10] MEDS: Lactated Ringers 1,000 ML IV SCH (08:20)
[2024-02-10] MEDS: Tranexamic Acid 1,000 MG/10 ML Vial ONE (10:48)
[2024-02-10] MEDS: Vancomycin 1 GM SDV ONE (10:48)
[2024-02-10 16:41] VITALS: BP 141/109; PULSE 105
[2024-02-10] MEDS: Acetaminophen/HYDROcodone 325-5 MG Tab PO PRN (17:45)
[2024-02-10] MEDS: Ondansetron 4 MG/2 ML SDV IVPUSH ONE (17:45)
== END | disposition home or self-care (01) ==
LOC: JD.SDS 07:45
PROVIDERS: ATTEND Orthopaedic Surgery
DX: M19.011 Primary osteoarthritis, right shoulder (principal); I10 Essential (primary) hypertension; E78.00 Pure hypercholesterolemia, unspecified; E03.9 Hypothyroidism, unspecified; E11.9 Type 2 diabetes mellitus without complications; Z79.82 Long term (current) use of aspirin; Z79.899 Other long term (current) drug therapy; Z79.890 Hormone replacement therapy; Z79.84 Long term (current) use of oral hypoglycemic drugs
CPT/HCPCS: 23472; 64415; 76000; 82947; 94761; 97116; 97161; A9270; J0171; J0690; J1100; J1885; J2250; J2371; J2405; J2704; J2795; J3010; J3490; J7120; C1713; C1769; C1776

== ENCOUNTER 2024-02-26 23:08 | Emergency (ER) | payer MEDICARE, BC ==
[2024-02-27] MEDS ORDERED: Sodium Chloride 0.9% 10 ML Syringe FLUSH PRN (00:22)
[2024-02-27 01:07] LABS: BASOPHILS PERCENT AUTO 0.3 % (0.0-1.0); EOSINOPHILS ABSOLUTE AUTO 0.2 K/mm3 (0.0-0.4); EOSINOPHILS PERCENT AUTO 2.7 % (0.0-6.0); HEMATOCRIT 29.8 % (37.0-47.0); HEMOGLOBIN 9.4 gm/dl (12.0-16.0); IMMATURE GRAN ABSOLUTE AUTO 0.04 K/mm3 (0.00-0.05); IMMATURE GRAN PERCENT AUTO 0.5 % (0.0-0.4); LYMPHOCYTES ABSOLUTE AUTO 1.8 K/mm3 (1.0-4.8); LYMPHOCYTES PERCENT AUTO 20.3 % (24.0-44.0); MEAN CORPUSCULAR HEMOGLOBIN 28.2 pg (28.0-32.0); MEAN CORPUSCULAR HGB CONC 31.5 g/dl (32.0-36.0); MEAN CORPUSCULAR VOLUME 89.5 fl (83.0-99.0); MEAN PLATELET VOLUME 9.1 fl (9.4-12.3); MONOCYTES ABSOLUTE AUTO 0.8 K/mm3 (0.0-0.8); MONOCYTES PERCENT AUTO 9.5 % (0.0-8.0); NEUTROPHILS ABSOLUTE AUTO 5.7 K/mm3 (1.8-7.7); NEUTROPHILS PERCENT AUTO 66.7 % (41.0-71.0); PLATELET COUNT,PLT 349 K/mm3 (150-400); RED BLOOD CELL COUNT 3.33 M/mm3 (4.10-5.30)
[2024-02-27 01:54] LABS: A/G RATIO 0.9 (1-2); ANION GAP 13.2 (5-15); BILIRUBIN TOTAL 0.3 mg/dL (0.2-1.0); BUN/CREATININE RATIO 15.6 (14-18); CALCIUM 10.1 mg/dL (8.5-10.1); CREATININE 0.9 mg/dL (0.55-1.02); EST CRCL DRUG DOSING (CG) 41.12 mL/min; POTASSIUM,K 4.2 mEq/L (3.5-5.1); PROTEIN TOTAL,TP 6.5 g/dl (6.4-8.2)
[2024-02-27 04:27] VITALS: BP 159/69; PULSE 76
== END 2024-02-27 03:37 | disposition home or self-care (01) ==
LOC: JD.ED 23:08
DX: I10 Essential (primary) hypertension (principal); R51.9 Headache, unspecified; E78.00 Pure hypercholesterolemia, unspecified; K21.9 Gastro-esophageal reflux disease without esophagitis; E11.9 Type 2 diabetes mellitus without complications; E03.9 Hypothyroidism, unspecified; Z79.899 Other long term (current) drug therapy; Z79.82 Long term (current) use of aspirin; Z79.84 Long term (current) use of oral hypoglycemic drugs; Z86.16 Personal history of COVID-19
CPT/HCPCS: 36415; 80053; 85025; 93005; 93010; 99283; 99284

== ENCOUNTER 2025-02-08 11:56 | Inpatient (IN) | payer MEDICARE, BC ==
[2025-02-08] MEDS ORDERED: Sodium Chloride 0.9% 10 ML Syringe FLUSH PRN (12:20)
[2025-02-08 13:18] LABS: BASOPHILS ABSOLUTE AUTO 0.0 K/mm3 (0.0-0.2); BASOPHILS PERCENT AUTO 0.2 % (0.0-1.0); EOSINOPHILS ABSOLUTE AUTO 0.1 K/mm3 (0.0-0.4); EOSINOPHILS PERCENT AUTO 0.4 % (0.0-6.0); IMMATURE GRAN ABSOLUTE AUTO 0.11 K/mm3 (0.00-0.05); IMMATURE GRAN PERCENT AUTO 0.6 % (0.0-0.4); LYMPHOCYTES ABSOLUTE AUTO 1.2 K/mm3 (1.0-4.8); LYMPHOCYTES PERCENT AUTO 6.6 % (24.0-44.0); MEAN PLATELET VOLUME 9.7 fl (9.4-12.3); MONOCYTES ABSOLUTE AUTO 2.8 K/mm3 (0.0-0.8); MONOCYTES PERCENT AUTO 14.9 % (0.0-8.0); NEUTROPHILS ABSOLUTE AUTO 14.3 K/mm3 (1.8-7.7); NEUTROPHILS PERCENT AUTO 77.3 % (41.0-71.0); NRBC ABSOLUTE 0.00 (0.00-0.02); NRBC PERCENT 0.0 % (0.0-0.2); PLATELET COUNT,PLT 204 K/mm3 (150-400); RED BLOOD CELL COUNT 3.77 M/mm3 (4.10-5.30); WHITE BLOOD CELL COUNT,WBC 18.46 K/mm3 (3.9-11.3)
[2025-02-08 13:32] LABS: INR 1.06
[2025-02-08 13:33] LABS: PTT,PARTIAL THROMBOPLSTIN TIME 34.7 SECONDS (21.7-31.4)
[2025-02-08 13:45] LABS: A/G RATIO 0.7 (1-2); ALANINE AMINOTRANSFERASE,ALT 28.0 U/L (14-59); ASPARTATE AMNIOTRANSFERASE,AST 38.0 U/L (15-37); BILIRUBIN TOTAL 0.8 mg/dL (0.2-1.0); BLOOD UREA NITROGEN,BUN 32.0 mg/dL (7-18); CARBON DIOXIDE,CO2 22.0 mEq/L (21-32); CHLORIDE,CL 97.0 mEq/L (98-107); CREATININE 1.4 mg/dL (0.55-1.02); EST CRCL DRUG DOSING (CG) 24.91 mL/min; ESTIMATED GFR 37.0 mL/min (>60); GLUCOSE RANDOM 120.0 mg/dL (70-99); POTASSIUM,K 4.0 mEq/L (3.5-5.1); PROTEIN TOTAL,TP 6.7 g/dl (6.4-8.2); SODIUM,NA 131.0 mEq/L (136-145); TROPONIN I HIGH SENSITIVITY 35.0 pg/mL (<=51)
[2025-02-08 13:48] LABS: LACTIC ACID 1.5 mmol/L (0.4-2.0)
[2025-02-08 14:52] LABS: APPEARANCE,URINE CLOUDY (Clear); GLUCOSE,URINE NEGATIVE (Negative); OCCULT BLOOD,URINE 2+ (Negative)
[2025-02-08 15:02] LABS: EPITHELIAL CELLS,URINE 0-5 /hpf (0-5)
[2025-02-08] MEDS: cefTRIAXone 1 GM in Water For Injection, Sterile 10 ML IVPUSH ONE (15:21)
[2025-02-08] MEDS ORDERED: 50% Dextrose in Water 50 ML Syringe IVPUSH PRN (19:38)
[2025-02-08] MEDS: Insulin Lispro 100 Unit/ML 3 ML KwikPen SUBCUT SCH (21:03)
[2025-02-09 04:45] LABS: BASOPHILS ABSOLUTE AUTO 0.0 K/mm3 (0.0-0.2); BASOPHILS PERCENT AUTO 0.1 % (0.0-1.0); EOSINOPHILS ABSOLUTE AUTO 0.0 K/mm3 (0.0-0.4); EOSINOPHILS PERCENT AUTO 0.2 % (0.0-6.0); IMMATURE GRAN ABSOLUTE AUTO 0.08 K/mm3 (0.00-0.05); IMMATURE GRAN PERCENT AUTO 0.5 % (0.0-0.4); LYMPHOCYTES ABSOLUTE AUTO 1.8 K/mm3 (1.0-4.8); LYMPHOCYTES PERCENT AUTO 12.4 % (24.0-44.0); MEAN PLATELET VOLUME 9.8 fl (9.4-12.3); MONOCYTES ABSOLUTE AUTO 1.8 K/mm3 (0.0-0.8); MONOCYTES PERCENT AUTO 12.2 % (0.0-8.0); NEUTROPHILS ABSOLUTE AUTO 11.1 K/mm3 (1.8-7.7); NEUTROPHILS PERCENT AUTO 74.6 % (41.0-71.0); NRBC ABSOLUTE 0.00 (0.00-0.02); NRBC PERCENT 0.0 % (0.0-0.2); PLATELET COUNT,PLT 203 K/mm3 (150-400); RED BLOOD CELL COUNT 3.60 M/mm3 (4.10-5.30); WHITE BLOOD CELL COUNT,WBC 14.88 K/mm3 (3.9-11.3)
[2025-02-09 05:21] LABS: A/G RATIO 0.7 (1-2); ALANINE AMINOTRANSFERASE,ALT 21 U/L (14-59); ASPARTATE AMNIOTRANSFERASE,AST 19 U/L (15-37); BILIRUBIN TOTAL 0.5 mg/dL (0.2-1.0); BLOOD UREA NITROGEN,BUN 28 mg/dL (7-18); CARBON DIOXIDE,CO2 25 mEq/L (21-32); CHLORIDE,CL 99 mEq/L (98-107); CREATININE 1.0 mg/dL (0.55-1.02); EST CRCL DRUG DOSING (CG) 34.87 mL/min; ESTIMATED GFR 55 mL/min (>60); GLUCOSE RANDOM 99 mg/dL (70-99); POTASSIUM,K 3.3 mEq/L (3.5-5.1); PROTEIN TOTAL,TP 6.2 g/dl (6.4-8.2); SODIUM,NA 134 mEq/L (136-145)
[2025-02-09] MEDS: Carboxymethylcellulose Sodium 1% Ophth Gel 15 ML Bottle EYEBOTH SCH (09:24)
[2025-02-09] MEDS: Magnesium Sulfate 2 GM/50 mL 2 GM in Premix Bag 1 BAG IV ONE (09:26)
[2025-02-09] MEDS: NS + KCl 20mEq/L 1,000 ML IV SCH (09:27)
[2025-02-09] MEDS ORDERED: Potassium Chloride 20 MEQ Tab.ER PO ONE (12:30)
[2025-02-09] MEDS: Potassium Chloride 20 MEQ Tab.ER PO ONE (14:57)
[2025-02-09] MEDS: cefTRIAXone 1 GM in Water For Injection, Sterile 10 ML IVPUSH SCH (14:58)
[2025-02-10 04:55] LABS: BASOPHILS ABSOLUTE AUTO 0.0 K/mm3 (0.0-0.2); BASOPHILS PERCENT AUTO 0.1 % (0.0-1.0); EOSINOPHILS ABSOLUTE AUTO 0.1 K/mm3 (0.0-0.4); EOSINOPHILS PERCENT AUTO 1.0 % (0.0-6.0); IMMATURE GRAN ABSOLUTE AUTO 0.07 K/mm3 (0.00-0.05); IMMATURE GRAN PERCENT AUTO 0.6 % (0.0-0.4); LYMPHOCYTES ABSOLUTE AUTO 1.7 K/mm3 (1.0-4.8); LYMPHOCYTES PERCENT AUTO 15.3 % (24.0-44.0); MEAN PLATELET VOLUME 9.9 fl (9.4-12.3); MONOCYTES ABSOLUTE AUTO 1.6 K/mm3 (0.0-0.8); MONOCYTES PERCENT AUTO 14.6 % (0.0-8.0); NEUTROPHILS ABSOLUTE AUTO 7.4 K/mm3 (1.8-7.7); NEUTROPHILS PERCENT AUTO 68.4 % (41.0-71.0); NRBC ABSOLUTE 0.00 (0.00-0.02); NRBC PERCENT 0.0 % (0.0-0.2); PLATELET COUNT,PLT 227 K/mm3 (150-400); RED BLOOD CELL COUNT 3.30 M/mm3 (4.10-5.30); WHITE BLOOD CELL COUNT,WBC 10.85 K/mm3 (3.9-11.3)
[2025-02-10 05:33] LABS: A/G RATIO 0.6 (1-2); ALANINE AMINOTRANSFERASE,ALT 24.0 U/L (14-59); ASPARTATE AMNIOTRANSFERASE,AST 15.0 U/L (15-37); BILIRUBIN TOTAL 0.4 mg/dL (0.2-1.0); BLOOD UREA NITROGEN,BUN 25.0 mg/dL (7-18); CARBON DIOXIDE,CO2 21.0 mEq/L (21-32); CHLORIDE,CL 105.0 mEq/L (98-107); CREATININE 1.1 mg/dL (0.55-1.02); EST CRCL DRUG DOSING (CG) 31.7 mL/min; ESTIMATED GFR 49.0 mL/min (>60); GLUCOSE RANDOM 97.0 mg/dL (70-99); POTASSIUM,K 3.8 mEq/L (3.5-5.1); PROTEIN TOTAL,TP 6.0 g/dl (6.4-8.2); SODIUM,NA 137.0 mEq/L (136-145)
[2025-02-10] MEDS: Carboxymethylcellulose Sodium 1% Ophth Gel 15 ML Bottle EYEBOTH SCH (20:00)
[2025-02-11 04:11] LABS: BASOPHILS ABSOLUTE AUTO 0.0 K/mm3 (0.0-0.2); BASOPHILS PERCENT AUTO 0.2 % (0.0-1.0); EOSINOPHILS ABSOLUTE AUTO 0.4 K/mm3 (0.0-0.4); EOSINOPHILS PERCENT AUTO 4.7 % (0.0-6.0); IMMATURE GRAN ABSOLUTE AUTO 0.05 K/mm3 (0.00-0.05); IMMATURE GRAN PERCENT AUTO 0.6 % (0.0-0.4); LYMPHOCYTES ABSOLUTE AUTO 1.8 K/mm3 (1.0-4.8); LYMPHOCYTES PERCENT AUTO 21.4 % (24.0-44.0); MEAN PLATELET VOLUME 9.4 fl (9.4-12.3); MONOCYTES ABSOLUTE AUTO 1.3 K/mm3 (0.0-0.8); MONOCYTES PERCENT AUTO 16.1 % (0.0-8.0); NEUTROPHILS ABSOLUTE AUTO 4.7 K/mm3 (1.8-7.7); NEUTROPHILS PERCENT AUTO 57.0 % (41.0-71.0); NRBC ABSOLUTE 0.00 (0.00-0.02); NRBC PERCENT 0.0 % (0.0-0.2); PLATELET COUNT,PLT 243 K/mm3 (150-400); RED BLOOD CELL COUNT 3.30 M/mm3 (4.10-5.30); WHITE BLOOD CELL COUNT,WBC 8.22 K/mm3 (3.9-11.3)
[2025-02-11 04:45] LABS: A/G RATIO 0.6 (1-2); ALANINE AMINOTRANSFERASE,ALT 19.0 U/L (14-59); ASPARTATE AMNIOTRANSFERASE,AST 13.0 U/L (15-37); BILIRUBIN TOTAL 0.3 mg/dL (0.2-1.0); BLOOD UREA NITROGEN,BUN 25.0 mg/dL (7-18); CARBON DIOXIDE,CO2 23.0 mEq/L (21-32); CHLORIDE,CL 107.0 mEq/L (98-107); CREATININE 0.8 mg/dL (0.55-1.02); EST CRCL DRUG DOSING (CG) 43.59 mL/min; ESTIMATED GFR 72.0 mL/min (>60); GLUCOSE RANDOM 105.0 mg/dL (70-99); POTASSIUM,K 3.7 mEq/L (3.5-5.1); PROTEIN TOTAL,TP 6.0 g/dl (6.4-8.2); SODIUM,NA 140.0 mEq/L (136-145)
[2025-02-11 11:58] VITALS: BP 138/74; PULSE 73
== END 2025-02-11 11:54 | disposition home or self-care (01) | DRG 690 ==
LOC: JD.ED 11:56 → JD.MS 19:05
PROVIDERS: ADMIT Family Medicine; ATTEND Family Medicine
DX: N30.01 Acute cystitis with hematuria (principal); N17.9 Acute kidney failure, unspecified; E87.1 Hypo-osmolality and hyponatremia; R78.81 Bacteremia; E86.0 Dehydration; I10 Essential (primary) hypertension; E87.6 Hypokalemia; E83.42 Hypomagnesemia; Z79.890 Hormone replacement therapy; I48.91 Unspecified atrial fibrillation; E11.9 Type 2 diabetes mellitus without complications; H54.7 Unspecified visual loss; E78.00 Pure hypercholesterolemia, unspecified; E03.9 Hypothyroidism, unspecified; K21.9 Gastro-esophageal reflux disease without esophagitis; M54.9 Dorsalgia, unspecified; Z96.611 Presence of right artificial shoulder joint; G89.29 Other chronic pain; Z86.73 Personal history of transient ischemic attack (TIA), and cerebral infarction without residual deficits; Z79.899 Other long term (current) drug therapy; Z79.82 Long term (current) use of aspirin; Z79.84 Long term (current) use of oral hypoglycemic drugs; Z79.52 Long term (current) use of systemic steroids; Z98.49 Cataract extraction status, unspecified eye; Z98.890 Other specified postprocedural states; Z94.7 Corneal transplant status; Z90.89 Acquired absence of other organs; Z86.14 Personal history of Methicillin resistant Staphylococcus aureus infection
CPT/HCPCS: 36415; 71045; 74176; 80053; 81001; 82550; 83605; 83735; 83880; 84484; 85025; 85610; 85730; 87040 ×2; 87077; 87086; 87088; 87154; 87186 ×2; 87428; 93005; 96361; 96374; 99285; J0696; J7030 ×2; 82947; 86140; 93010; 97110-GO; 97110-GP; 97112-GP; 97116-GP; 97162-GP; 97166-GO; 97530-GP; 97535-GO; A9270-GY; J1650; J3475; J3480; J3490

== ENCOUNTER 2025-02-16 21:39 | Emergency (ER) | payer MEDICARE, BC ==
[2025-02-16] MEDS ORDERED: Sodium Chloride 0.9% 10 ML Syringe FLUSH PRN (21:59)
[2025-02-16] MEDS ORDERED: Labetalol 100 MG/20 ML MDV IVPUSH ONE (22:01)
[2025-02-16 22:08] LABS: BASOPHILS ABSOLUTE AUTO 0.1 K/mm3 (0.0-0.2); BASOPHILS PERCENT AUTO 0.6 % (0.0-1.0); EOSINOPHILS ABSOLUTE AUTO 0.3 K/mm3 (0.0-0.4); EOSINOPHILS PERCENT AUTO 3.5 % (0.0-6.0); IMMATURE GRAN ABSOLUTE AUTO 0.23 K/mm3 (0.00-0.05); IMMATURE GRAN PERCENT AUTO 2.7 % (0.0-0.4); LYMPHOCYTES ABSOLUTE AUTO 2.4 K/mm3 (1.0-4.8); LYMPHOCYTES PERCENT AUTO 27.1 % (24.0-44.0); MEAN PLATELET VOLUME 8.3 fl (9.4-12.3); MONOCYTES ABSOLUTE AUTO 0.9 K/mm3 (0.0-0.8); MONOCYTES PERCENT AUTO 9.9 % (0.0-8.0); NEUTROPHILS ABSOLUTE AUTO 4.9 K/mm3 (1.8-7.7); NEUTROPHILS PERCENT AUTO 56.2 % (41.0-71.0); NRBC ABSOLUTE 0.00 (0.00-0.02); NRBC PERCENT 0.0 % (0.0-0.2); PLATELET COUNT,PLT 517 K/mm3 (150-400); RED BLOOD CELL COUNT 3.89 M/mm3 (4.10-5.30); WHITE BLOOD CELL COUNT,WBC 8.66 K/mm3 (3.9-11.3)
[2025-02-16 22:32] LABS: A/G RATIO 0.7 (1-2); ALANINE AMINOTRANSFERASE,ALT 43.0 U/L (14-59); ASPARTATE AMNIOTRANSFERASE,AST 30.0 U/L (15-37); BILIRUBIN TOTAL 0.2 mg/dL (0.2-1.0); BLOOD UREA NITROGEN,BUN 15.0 mg/dL (7-18); CARBON DIOXIDE,CO2 31.0 mEq/L (21-32); CHLORIDE,CL 101.0 mEq/L (98-107); CREATININE 0.8 mg/dL (0.55-1.02); EST CRCL DRUG DOSING (CG) 43.59 mL/min; ESTIMATED GFR 72.0 mL/min (>60); GLUCOSE RANDOM 123.0 mg/dL (70-99); POTASSIUM,K 3.8 mEq/L (3.5-5.1); PROTEIN TOTAL,TP 7.1 g/dl (6.4-8.2); SODIUM,NA 139.0 mEq/L (136-145); TROPONIN I HIGH SENSITIVITY 41.0 pg/mL (<=51)
[2025-02-16 23:39] VITALS: BP 131/50; PULSE 63
== END 2025-02-16 23:37 | disposition home or self-care (01) ==
LOC: JD.ED 21:39
DX: R07.89 Other chest pain (principal); I10 Essential (primary) hypertension; E78.00 Pure hypercholesterolemia, unspecified; E03.9 Hypothyroidism, unspecified; E11.9 Type 2 diabetes mellitus without complications; Z79.82 Long term (current) use of aspirin; Z79.890 Hormone replacement therapy; Z79.899 Other long term (current) drug therapy
CPT/HCPCS: 36415; 70450; 70450-26; 80053; 83735; 84484; 85025; 93005; 99285